=== PATIENT | male | born 1955 | race African-American/Black ===

== ENCOUNTER 2019-01-25 16:23 | Emergency (ER) | payer SELFPAY ==
[2019-01-25 18:32] LABS: #Basophils 0.1 thou/uL (0.0-0.2); #Eosinphils 0.3 thou/uL (0.0-0.7); #Monocytes 0.3 thou/uL (0.11-0.59); #Neutrophils 2.9 thou/uL (1.40-6.50); %Eosinophils 4.8 % (0.0-10.0); %Lymphocytes 36.2 % (21.0-51.0); %Monocytes 4.8 % (0.0-10.0); %Neutrophils 53.1 % (42.0-75.0); Hemoglobin 12.9 g/dL (14.0-18.0); Mean Corpuscular HGB CONC 33.2 g/dL (32.0-36.0); Mean Corpuscular Hemoglobin 30.4 pg (27.0-31.0); Mean Corpuscular Volume 91.4 fL (78.0-98.0); Mean Platelet Volume 6.9 fL (7.4-10.4); Platelet Count 215 thou/uL (130-400); RBC Distribution Width 11.3 % (11.5-14.5); Red Blood Cell (RBC) Count 4.23 mill/uL (4.70-6.10); White Blood Cell (WBC) Count 5.5 thou/uL (4.8-10.8)
[2019-01-25 18:38] LABS: Bilirubin Negative (Negative); Blood, Urine Small (Negative); Clarity CLOUDY (Clear); Glucose, Urine (Dipstick) Negative (Negative); Leukocyte Large (Negative); Nitrite Negative (Negative); Protein, Urine (Dipstick) Negative (Neg-Trace); Specific Gravity, Urine 1.003 (1.002-1.036); Urobilinogen 0.2 mg/dL (0.2-1.0); pH, Urine 6.5 (5.0-9.0)
[2019-01-25 18:41] LABS: Bacteria/HPF Rare-Few HPF (None Seen); Hyaline Casts/LPF 4-6 HYALINE CAST LPF (0-3 Hyaline); Pathc Cast-AUWi Flag 1.08 (0-2.49); RBC/HPF 0-3 HPF (0-3); Squamous Epithelial None Seen HPF (0-3)
--- NOTE | 2019-01-25 19:13 | ULT ---
RIGHT LOWER EXTREMITY VENOUS ULTRASOUND WITH DOPPLER: 01/25/19 HISTORY: Right lower extremity swelling/edema. COMPARISON: None. TECHNIQUE: Manning scale, color flow, doppler imaging with spectral waveform analysis performed in a right lower ex tremity venous system. FINDINGS: There is soft tissue edema at the level of the calf. There are enlarged right inguinal lymph nodes. There is compressibility, presence of flow and augment ation in the common femoral vein, femoral vein, and popliteal vein. There is flow in the greater saph enous vein, profunda vein and posterior tibial vein. IMPRESSION: 1. No evidence of thrombus in the right lower extremity deep venous system. 2. Soft tissue edema. 3. Enlarged right inguinal lymph node. POS: [facility]
[2019-01-25 19:15] LABS: ALT (SGPT) 22 U/L (8-55); AST (SGOT) 33 U/L (5-34); Albumin 4.4 g/dL (3.4-4.8); Alkaline Phosphatase 81 U/L (40-150); Anion Gap 16 mmol/L (10-20); BUN (Urea Nitrogen) 16 mg/dL (8.4-25.7); Calc. Creatinine Clearance 0 mL/min (70-130); Calcium 9.2 mg/dL (7.8-10.44); Carbon Dioxide 24 mmol/L (23-31); Chloride 105 mmol/L (98-107); Estimated GFR-MDRD 54; Globulin 3.7 g/dL (2.4-3.5); Glucose 100 mg/dL (80-115); Potassium 3.2 mmol/L (3.5-5.1); Protein, Total 8.1 g/dL (5.8-8.1); Sodium 142 mmol/L (136-145)
[2019-01-25] MEDS ORDERED: Cephalexin 250 MG CAP ONE (20:25)
== END 2019-01-25 20:35 | disposition home or self-care (01) ==
LOC: ERS 16:23
DX: L03.115 Cellulitis of right lower limb (principal); N39.0 Urinary tract infection, site not specified
CPT/HCPCS: 80053; 81003; 81015; 83880; 84484; 85025; 93005

== ENCOUNTER 2019-02-09 05:37 | Emergency (ER) | payer SELFPAY ==
[2019-02-09 05:55] LABS: Bilirubin Negative (Negative); Blood, Urine Large (Negative); Clarity CLOUDY (Clear); Glucose, Urine (Dipstick) Negative (Negative); Leukocyte Large (Negative); Nitrite Positive (Negative); Protein, Urine (Dipstick) 100 mg/dL (Neg-Trace); Specific Gravity, Urine 1.006 (1.002-1.036); Urobilinogen 0.2 mg/dL (0.2-1.0)
[2019-02-09 05:58] LABS: Bacteria/HPF Rare-Few HPF (None Seen); Hyaline Casts/LPF 4-6 HYALINE CAST LPF (0-3 Hyaline); Pathc Cast-AUWi Flag 1.36 (0-2.49); Squamous Epithelial None Seen HPF (0-3); Yeast-AUWi Flag 21.2 (0-25.0)
[2019-02-09 06:39] LABS: #Basophils 0.1 thou/uL (0.0-0.2); #Lymphocytes 1.2 thou/uL (1.20-3.40); #Monocytes 0.4 thou/uL (0.11-0.59); #Neutrophils 2.6 thou/uL (1.40-6.50); %Basophils 2.1 % (0.0-1.0); %Eosinophils 0.6 % (0.0-10.0); %Lymphocytes 27.9 % (21.0-51.0); %Monocytes 9.5 % (0.0-10.0); %Neutrophils 59.9 % (42.0-75.0); Hemoglobin 11.4 g/dL (14.0-18.0); Mean Corpuscular HGB CONC 32.8 g/dL (32.0-36.0); Mean Corpuscular Hemoglobin 30.7 pg (27.0-31.0); Mean Corpuscular Volume 93.6 fL (78.0-98.0); Mean Platelet Volume 7.1 fL (7.4-10.4); Platelet Count 173 thou/uL (130-400); RBC Distribution Width 11.3 % (11.5-14.5); Red Blood Cell (RBC) Count 3.72 mill/uL (4.70-6.10); White Blood Cell (WBC) Count 4.4 thou/uL (4.8-10.8)
[2019-02-09] MEDS ORDERED: Ketorolac Tromethamine 60 MG/2 ML VIAL ONE (07:01)
[2019-02-09] MEDS ORDERED: Ciprofloxacin 500 MG TAB ONE (07:01)
[2019-02-09 07:02] LABS: ALT (SGPT) 20 U/L (8-55); AST (SGOT) 31 U/L (5-34); Albumin 4.1 g/dL (3.4-4.8); Alkaline Phosphatase 69 U/L (40-150); Anion Gap 13 mmol/L (10-20); BUN (Urea Nitrogen) 25 mg/dL (8.4-25.7); Bilirubin, Total 0.9 mg/dL (0.2-1.2); Calc. Creatinine Clearance 0 mL/min (70-130); Calcium 8.9 mg/dL (7.8-10.44); Carbon Dioxide 24 mmol/L (23-31); Chloride 101 mmol/L (98-107); Estimated GFR-MDRD 37; Globulin 3.7 g/dL (2.4-3.5); Glucose 90 mg/dL (80-115); Potassium 3.7 mmol/L (3.5-5.1); Protein, Total 7.8 g/dL (5.8-8.1); Sodium 134 mmol/L (136-145)
== END 2019-02-09 07:26 | disposition home or self-care (01) ==
LOC: ERS 05:37
DX: N30.00 Acute cystitis without hematuria (principal)
CPT/HCPCS: 36415; 80053; 81003; 81015; 85025; 96372; J1885

== ENCOUNTER 2020-02-05 13:21 | Inpatient (IN) | payer SELFPAY ==
[2020-02-05 13:49] LABS: #Eosinphils 0.1 thou/uL (0.0-0.7); #Lymphocytes 1.3 thou/uL (1.20-3.40); #Monocytes 0.3 thou/uL (0.11-0.59); #Neutrophils 4.8 thou/uL (1.40-6.50); %Basophils 0.7 % (0.0-1.0); %Eosinophils 1.6 % (0.0-10.0); %Monocytes 4.2 % (0.0-10.0); %Neutrophils 73.5 % (42.0-75.0); Hemoglobin 10.2 g/dL (14.0-18.0); Mean Corpuscular HGB CONC 34.3 g/dL (32.0-36.0); Mean Corpuscular Hemoglobin 30.7 pg (27.0-31.0); Mean Corpuscular Volume 89.5 fL (78.0-98.0); Mean Platelet Volume 6.8 fL (7.4-10.4); Platelet Count 187 thou/uL (130-400); RBC Distribution Width 12.1 % (11.5-14.5); Red Blood Cell (RBC) Count 3.34 mill/uL (4.70-6.10); White Blood Cell (WBC) Count 6.5 thou/uL (4.8-10.8)
[2020-02-05 14:16] LABS: ALT (SGPT) 8 U/L (8-55); AST (SGOT) 14 U/L (5-34); Albumin 4.2 g/dL (3.4-4.8); Alkaline Phosphatase 91 U/L (40-110); Anion Gap 15 mmol/L (10-20); BUN (Urea Nitrogen) 63 mg/dL (8.4-25.7); Bilirubin, Total 0.4 mg/dL (0.2-1.2); CK (CPK) 148 U/L (30-200); Calc. Creatinine Clearance 0 mL/min (70-130); Calcium 9.2 mg/dL (7.8-10.44); Carbon Dioxide 18 mmol/L (23-31); Chloride 105 mmol/L (98-107); Estimated GFR-MDRD 10; Glucose 106 mg/dL (80-115); Potassium 4.7 mmol/L (3.5-5.1); Protein, Total 8.2 g/dL (5.8-8.1); Sodium 133 mmol/L (136-145)
--- NOTE | 2020-02-05 14:34 | PDOC.FPRHP ---
- History of Present Illness Chief Complaint: Lightheadedness History of Present Illness: 64yo M presented to the ED complaining of lightheadness. 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 Pt states this resolved with some rest. Over the weekend he did not work but when back to work today. This morning around 8am while exerting himself he developed lightheadedness again while working prompting him to seek further evaluation. Initial ED workup showed a Cr of 6.83. Pt states that he has been urinating clear urine and has been urinating slightly more than usual. He denies any dysuria, incontinence, difficulty urinating, abdominal pain, fever /chills, N/V/D. Notes he has hx of UTI's and was previously seen by a urologist as an inpatient but never followed up with him as an outpt. Review of pt's chart showed hx of ureteral calculi and possible hemorrhage and mass within the bladder in 2012. - Allergies/Adverse Reactions Allergies Allergy/AdvReac Type Severity Reaction Status Date / Time No Known Allergies Allergy Verified 01/25/20 23:13 - Home Medications Medication Instructions Recorded Confirmed Type Terazosin HCl 1 mg PO DAILY 02/05/20 02/05/20 History - History PMHx: HTN, UTI PSHx: Right wrist FHx: CVA's - brother and 2 families Social: Occasional alcohol use, denies tobacco, denies drug use - Review of Systems General: denies: fever/chills, weight/appetite/sleep changes Eyes: denies: vision changes, other ENT: denies: nasal congestion, rhinorrhea Respiratory: denies: cough, shortness of breath Cardiovascular: denies: chest pain, edema Gastrointestinal: denies: nausea, vomiting, diarrhea, constipation, abdominal pain Genitourinary: reports: polyuria. denies: incontinence, dysuria, discharge Skin: denies: rashes, lesions Musculoskeletal: denies: tenderness, arthritis/arthralgias Neurological: reports: other (lightheadedness). denies: syncope, weakness - Vital signs BP: 146/85, Pulse: 86, Resp: 19, Temp: 97.6 (Oral), O2 sat: 97 on (Room Air) - Physical Exam Constitutional: NAD, awake, alert and oriented, well developed HEENT: PERRLA, EOMI -HEENT: Mildly pale conjunctiva Neck: supple, FROM Heart: RRR, normal S1/S2 Lungs: CTAB, no respiratory distress Abdomen: soft, non-tender -Abdomen: Mild distention, midline ventral abdominal wall hernia (chronic, no contents/ entrapment) Musculoskeletal: normal structure, normal tone Neurological: no focal deficit, CN II-XII intact Skin: no rash/lesions, capillary refill <2 seconds Heme/Lymphatic: no purpura, no petechia Psychiatric: normal mood and affect, good judgment and insight, intact recent and remote memory FMR H&P: Results - Labs Result Diagrams: 02/05/20 13:41 02/05/20 13:41 Lab results: WBC 6.5 thou/uL (4.8-10.8) 02/05/20 13:41 Hgb 10.2 g/dL (14.0-18.0) L 02/05/20 13:41 Hct 29.9 % (42.0-52.0) L 02/05/20 13:41 MCV 89.5 fL (78.0-98.0) 02/05/20 13:41 Plt Count 187 thou/uL (130-400) 02/05/20 13:41 Neutrophils % 73.5 % (42.0-75.0) 02/05/20 13:41 Sodium 133 mmol/L (136-145) L 02/05/20 13:41 Potassium 4.7 mmol/L (3.5-5.1) 02/05/20 13:41 Chloride 105 mmol/L (98-107) 02/05/20 13:41 Carbon Dioxide 18 mmol/L (23-31) L 02/05/20 13:41 BUN 63 mg/dL (8.4-25.7) H 02/05/20 13:41 Creatinine 6.83 mg/dL (0.7-1.3) H 02/05/20 13:41 Glucose 106 mg/dL (80-115) 02/05/20 13:41 Calcium 9.2 mg/dL (7.8-10.44) 02/05/20 13:41 Total Bilirubin 0.4 mg/dL (0.2-1.2) 02/05/20 13:41 AST 14 U/L (5-34) 02/05/20 13:41 ALT 8 U/L (8-55) 02/05/20 13:41 Alkaline Phosphatase 91 U/L (40-110) 02/05/20 13:41 Creatine Kinase 148 U/L (30-200) 02/05/20 13:41 Serum Total Protein 8.2 g/dL (5.8-8.1) H 02/05/20 13:41 Albumin 4.2 g/dL (3.4-4.8) 02/05/20 13:41 - EKG Interpretation EK bpm, with no ectopics, Conduction normal, ST, non-specific ST changes, T waves, non-specific T wave changes, [place] normal, Clinical impression:, non- specific EKG - Radiology Interpretation Chest x-ray Status: report reviewed by me (No evidence of acute cardiopulmonary disease.) FMR H&P: A/P - Problem List (1) Acute renal failure Current Visit: Yes Status: Acute Qualifiers: Acute renal failure type: unspecified Qualified Code(s): N17.9 - Acute kidney failure, unspecified (2) Hypertension Current Visit: Yes Status: Acute Code(s): I10 - ESSENTIAL (PRIMARY) HYPERTENSION Qualifiers: Hypertension type: essential hypertension Qualified Code(s): I10 - Essential (primary) hypertension (3) Hyponatremia Current Visit: Yes Status: Acute Code(s): E87.1 - HYPO-OSMOLALITY AND HYPONATREMIA (4) Anemia Current Visit: Yes Status: Acute Code(s): D64.9 - ANEMIA, UNSPECIFIED Qualifiers: Anemia type: unspecified type Qualified Code(s): D64.9 - Anemia, unspecified (5) Elevated troponin Current Visit: Yes Status: Acute Code(s): R79.89 - OTHER SPECIFIED ABNORMAL FINDINGS OF BLOOD CHEMISTRY - Plan 64 yo M presented to the ED with lightheadedness and found to have acute renal failure. Acute Renal Failure - Previous baseline Cr fluctuates in past, highest was 2.4 but returned to <1 - IVF: LR @ 125 - Consulted nephrology Dr. Larios - Renal US ordered - UDS ordered - Normal potassium Anemia - TIBC, Ferritin, Iron studies ordered Hyponatremia - Likely related to renal insufficiency - Urine studies ordered, serum osmo Elevated Troponin - 0.061 - Likely related to renal insufficiency - Trend Hypertension - Previously on terazosin - Will transition to amlodipine Diet: Renal IVF: LR @ 125 Code status: Full Dispo: Admit to medical floor for evaluation and treatment of acute renal failure. PCP: [facility] FMR H&P: Upper Level - Plan Date/Time: 02/05/20 5434 I, Job Adams MD, have evaluated this patient and agree with findings/ plan as outlined by international manager resident. Pertinent changes/additions are listed here. 1. ARF - Previous baseline near February 2019 Cr 2.19 - Will order urine studies - Will order stat Renal US due to previous imaging and possible mass - Will consult Nephrology - Initiate IVF until Nephrology recs are known 2. Anemia - Likely secondary to CKD - Iron studies pending 3. Elevated troponin - Likely secondary to #1 - Will consider cardiac workup if symptoms persist 4. HTN - Will initiate appropriate medication management - Trend BP CODE STATUS: FULL CODE PCP: CC - [facility] Disposition: Stable, will admit to inpatient medical for further evaluation and management. Addendum - Attending - Attending Attestation Date/Time: 02/05/20 9992 I personally evaluated the patient and discussed the management with Dr. Bradley/ Bryan. I agree with the History, Examination, Assessment and Plan documented above with any addition or exceptions noted below. Patient is a 64-year-old male with history of hypertension who is presenting due to lightheadedness. Upon patients chart review, it appears he had an abnormal CT scan in 2012 showing some bladder irregularities. He was recommended to follow up with urology at that time but did not do so. Laboratory evaluation at the time of ER visit shows creatinine of greater than six, the rest of his laboratory studies are overall normal. due to the patient s history, I would have concerns about obstructive uropathy. Stat renal ultrasound has been ordered, and have low threshold for consultation of urology and obtaining CT of the abdomen and pelvis to further evaluate the progress of these bladder irregularities. Patient likely needs Gomez catheter placement but at the current time he does report that he seems to be urinating plenty. Will also obtain urine studies to further differentiate his bladder issues and renal issues.
[2020-02-05 14:38] LABS: CKMB 4.8 ng/mL (0-6.6)
--- NOTE | 2020-02-05 15:19 | RAD ---
SINGLE VIEW OF THE CHEST: COMPARISON: 06/04/2011. HISTORY: Dizziness and dyspnea. FINDINGS: Single view of the chest shows a normal sized cardiomediastinal silhouette. There is no evidence of c onsolidation, mass, or pleural effusion. The bones are unremarkable. IMPRESSION: No evidence of acute cardiopulmonary disease. POS: [facility]
[2020-02-05] MEDS ORDERED: Lactated Ringer's 1,000 ML IV SCH (17:02)
[2020-02-05] MEDS ORDERED: Amlodipine 5 MG TAB PO SCH (17:02)
[2020-02-05 17:08] VITALS: BMI 29.0
[2020-02-05 17:28] LABS: Troponin I 0.086 ng/mL (< 0.028)
--- NOTE | 2020-02-05 18:46 | ULT ---
ULTRASOUND RETROPERITONEUM COMPLETE: (RENAL) DATE: 02/05/2020 HISTORY: Dr. Burgess reported the findings by telephone to nurse Zuly Mccoy at 6:39 PM 02/05/2020. She was inst ructed to notify the attending or resident physician. FINDINGS: There is very severe dilation of the bilateral renal collecting systems and renal pelves. The bilateral renal parenchyma is diffusely very thin, suggesting that this severe hydronephrosis is probably chronic and long-standing. Right kidney measures approximately 14.5 x 6.5 x 6.5 cm. Left kidney measures approximately 12.5 x 7.5 x 7 cm. The patient voided just prior to the ultrasound. Despite that, the urinary bladder is distended, with estimated volume of approximately 2000 mL IMPRESSION: 1) severe bilateral hydronephrosis. 2.) Diffuse renal parenchymal cortical thinning, suggesting that the hydronephrosis is chronic and lo ng-standing. 3) severe urinary bladder distention, with post void bladder volume of 2000 mL, very poor micturition .
[2020-02-05 18:52] LABS: Iron 24 ug/dL (65-175); Iron Binding Capacity, Total 291 mcg/dL (261-462)
[2020-02-05 19:03] LABS: Bacteria/HPF 2+ HPF (None Seen); Bilirubin Negative (Negative); Blood, Urine 2+ (Negative); Clarity Turbid (Clear); Glucose, Urine (Dipstick) Normal (Negative); Leukocyte 500 Leu/uL (Negative); Nitrite Negative (Negative); Protein, Urine (Dipstick) 50 mg/dL (Neg-Trace); Squamous Epithelial 0-3 HPF (0-3); Urobilinogen Normal mg/dL (Less than 2); WBC/HPF Greater than 50 HPF (0-3)
--- NOTE | 2020-02-05 19:55 | CON ---
DATE OF CONSULTATION: HISTORY OF PRESENT ILLNESS: Mr. Crawford is a 64-year-old black male, who was admitted for an acute kidney injury. He initially presented with lightheadedness. Review of systems also showed some urinary hesitancy and dysuria as well as urinary incontinence. Also evaluated for abdominal discomfort. During the initial workup, he was noted to be in acute kidney injury. He does have a history of chronic renal failure in the past. He has also been seen by a previous urologist, Dr. Franz, at that time was noted to have had urinary obstruction. Repeat renal ultrasound showed bilateral hydronephrosis and renal cortical thinning. The feeling is that he also had a very distended bladder with about 2 L of urine after a postvoid bladder volume. We are now following up this patient for his acute kidney injury secondary to bilateral hydronephrosis. Urology has been consulted. MEDICATIONS: Include the followin. Amlodipine 5 mg daily. 2. Heparin 5000 units subcu t.i.d. 3. Lactated Ringer's 125 mL/hour. PAST MEDICAL HISTORY: 1. Chronic renal failure secondary to presumed chronic obstructive uropathy. 2. Longstanding hypertension. PAST SURGICAL HISTORY: Status post right hand surgery secondary to trauma. SOCIAL HISTORY: Occasional alcohol. Denies any tobacco use. He is , one child. Lives in [place]. 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 Education, 10th grade. No IV drug abuse. Denies any blood transfusion. ALLERGIES: NO KNOWN DRUG ALLERGIES. TRAUMA: Status post right wrist/hand injury. IMMUNIZATIONS: Unknown. HOSPITALIZATIONS: Please see past medical history. FAMILY HISTORY: Positive family history of CVA. PHYSICAL EXAMINATION: VITAL SIGNS: Blood pressure is 161/93, heart rate 104, respiratory rate 20, temperature 97.9, pulse ox 96%. GENERAL: Noted to be awake, alert, comfortable, not in distress. SKIN: Adequate turgor. HEENT: He has pinkish conjunctivae. Anicteric sclerae. No neck mass. No carotid bruits. No JVD. CHEST: No deformities. LUNGS: Clear breath sounds. No wheezing. No crackles. HEART: Normal sinus rhythm. No murmurs. No gallops. No rubs. ABDOMEN: Globular, soft, and nontender. No masses. EXTREMITIES: No edema. No deformities. NEUROLOGIC: Awake and oriented to 3 spheres. Moving all extremities. No tremors. No asterixis. No ataxia. LABORATORY DATA: Laboratories of February 05, 2020: White count 6.5, hemoglobin 10.2. Sodium 133, potassium 4.7, chloride 105, carbon dioxide 18, BUN 63, creatinine 6.83, GFR 10 mL/minute, calcium 9.2, albumin 4.2. Serum osmolality is 307. Troponin I 0.086. BNP 44.3. Further review of his serum creatinine shows the following, February 09, 2019, creatinine was 2.19. Renal ultrasound of February 05, 2020, showed bilateral hydronephrosis. Also diffuse renal parenchymal cortical thinning and also findings of severe urinary bladder distention with a postvoid bladder volume of 2 L. Urinalysis of February 05, 2020, specific gravity 1.008, positive for protein. The patient also positive for red cells as well as wbc. There is no finding of any pigmented granular casts. ASSESSMENT AND PLAN: 1. Acute kidney injury on top of his chronic renal failure - I feel that the patient has a superimposed obstructive uropathy as suggested by the bilateral hydronephrosis. Agree to place a Gomez catheter with this patient since feeling this may be a low bladder outlet obstruction. 2. Chronic renal failure, most likely from chronic obstructive uropathy as suggested by cortical thinning. Management is essentially supportive. I do not find any reason for any emergent hemodialysis with this patient. Overall, agree with current management. Job ID: [id number]
[2020-02-05] MEDS: Heparin 5,000 UNITS/ML VIAL SC SCH (20:01)
[2020-02-05] MEDS: Acetaminophen 325 MG TAB PO PRN (20:26)
[2020-02-05 21:02] LABS: Troponin I 0.081 ng/mL (< 0.028)
[2020-02-06 01:57] LABS: Amphetamine Not Detected (NotDetected); Barbiturates Screen Not Detected (NotDetected); Benzodiazepine Screen Not Detected (NotDetected); Cocaine Metabolite Screen Not Detected (NotDetected); Medtox Control Line Valid? VALID (VALID); Medtox Reader # READER 4; Methadone Not Detected (NotDetected); Methamphetamine Not Detected (NotDetected); Opiate Screen Not Detected (NotDetected); Oxycodone Screen Not Detected (NotDetected); Phencyclidine (PCP) Not Detected (NotDetected); THC/Cannabinoid Screen Not Detected (NotDetected); Tricyclic Screen Not Detected (NotDetected)
[2020-02-06 02:09] LABS: Protein, Urine Random Quant 150 mg/dL (1-14); Sodium, Urine 93 mmol/L (Not Available)
[2020-02-06 05:20] LABS: #Basophils 0.1 thou/uL (0.0-0.2); #Eosinphils 0.3 thou/uL (0.0-0.7); #Lymphocytes 1.9 thou/uL (1.20-3.40); #Monocytes 0.4 thou/uL (0.11-0.59); #Neutrophils 3.8 thou/uL (1.40-6.50); %Basophils 0.9 % (0.0-1.0); %Eosinophils 4.3 % (0.0-10.0); %Lymphocytes 29.1 % (21.0-51.0); %Monocytes 6.4 % (0.0-10.0); %Neutrophils 59.4 % (42.0-75.0); Hemoglobin 11.5 g/dL (14.0-18.0); Mean Corpuscular Hemoglobin 30.3 pg (27.0-31.0); Mean Corpuscular Volume 88.9 fL (78.0-98.0); Platelet Count 200 thou/uL (130-400); RBC Distribution Width 12.1 % (11.5-14.5); Red Blood Cell (RBC) Count 3.82 mill/uL (4.70-6.10); White Blood Cell (WBC) Count 6.4 thou/uL (4.8-10.8)
[2020-02-06 05:45] LABS: Anion Gap 16 mmol/L (10-20); BUN (Urea Nitrogen) 58 mg/dL (8.4-25.7); Calc. Creatinine Clearance 17 mL/min (70-130); Calcium 9.3 mg/dL (7.8-10.44); Carbon Dioxide 18 mmol/L (23-31); Chloride 106 mmol/L (98-107); Estimated GFR-MDRD 11; Glucose 102 mg/dL (80-115); Potassium 5.3 mmol/L (3.5-5.1); Sodium 135 mmol/L (136-145)
--- NOTE | 2020-02-06 06:53 | PDOC.FM ---
- Subjective Subjective: Pt states he started feeling much better after mason was placed last night. Denies any memory of what they told him was wrong with his bladder in the past. Continues to deny any difficulty with urinating prior to arrival including dysuria, weak stream, incontinence. - Objective Vital Signs & Weight: Vital Signs (12 hours) Temp Pulse Resp BP Pulse Ox 02/06/20 04:13 98.1 F 76 18 142/86 H 97 02/06/20 00:00 98.0 F 80 18 148/84 H 02/05/20 20:00 97.9 F 91 18 172/97 H 96 02/05/20 19:50 91 L Weight Weight 99.79 kg I&O: 02/04/20 02/05/20 02/06/20 06:59 06:59 06:59 Intake Total 950 Output Total 5350 Balance -4400 Result Diagrams: 02/06/20 05:12 02/06/20 05:12 Phys Exam - Physical Examination Constitutional: NAD HEENT: moist MMs Neck: full ROM Respiratory: clear to auscultation bilateral Cardiovascular: RRR Gastrointestinal: soft, non-tender, no distention, positive bowel sounds Prostate is high riding, inferior pole is dense but not enlarged Musculoskeletal: no edema Neurological: non-focal, moves all 4 limbs Psychiatric: normal affect, A&O x 3 Skin: no rash Dx/Plan (1) Acute renal failure Status: Acute Qualifiers: Acute renal failure type: unspecified Qualified Code(s): N17.9 - Acute kidney failure, unspecified (2) Hypertension Code(s): I10 - ESSENTIAL (PRIMARY) HYPERTENSION Status: Acute Qualifiers: Hypertension type: essential hypertension Qualified Code(s): I10 - Essential (primary) hypertension (3) Hyponatremia Code(s): E87.1 - HYPO-OSMOLALITY AND HYPONATREMIA Status: Acute (4) Anemia Code(s): D64.9 - ANEMIA, UNSPECIFIED Status: Acute Qualifiers: Anemia type: unspecified type Qualified Code(s): D64.9 - Anemia, unspecified (5) Elevated troponin Code(s): R79.89 - OTHER SPECIFIED ABNORMAL FINDINGS OF BLOOD CHEMISTRY Status : Acute - Plan Plan: 64 yo M presented to the ED with lightheadedness and found to have acute renal failure. Acute Renal Failure 2/2 Likely obstructive uropathy - Cr 6.08 - Consulted nephrology Dr. Larios - Renal US - showed severe likely chronic hydronephrosis - Mason placed last night w/ 3500ml return - Will consult urology this morning, await recs for imaging - Slightly elevated potassium at 5.3 Bacturia - Insetting of obstructive uropathy with start abx - Rocephin 1g daily Anemia - Iron studies consistent w/ ACD - Will start iron supplementation Hyponatremia - Likely related to renal insufficiency Elevated Troponin - stable trend, likely 2/2 ARF Hypertension - Previously on terazosin - Will transition to amlodipine Diet: Renal IVF: SL Code status: Full Dispo: Admit to medical floor for evaluation and treatment of acute renal failure. Addendum - Attending - Attending Attestation Date/Time: 02/06/20 1110 I personally evaluated the patient and discussed the management with Dr. Bradley. I agree with the History, Examination, Assessment and Plan documented above with any addition or exceptions noted below.
[2020-02-06] MEDS ORDERED: Ondansetron PF 4 MG/2 ML Vial IVP PRN (07:36)
[2020-02-06] MEDS: cefTRIAXone\\ROCEPHIN 1 GM in Sodium Chloride 0.9% 100 ML IVPB SCH (08:32)
[2020-02-06] MEDS: Heparin 5,000 UNITS/ML VIAL SC SCH ×3 (08:33→21:16)
[2020-02-06] MEDS: Amlodipine 5 MG TAB PO SCH (08:33)
[2020-02-06] MEDS ORDERED: Tamsulosin HCl 0.4 MG CAP PO SCH (09:45)
--- NOTE | 2020-02-06 11:01 | PRG ---
DATE OF SERVICE: 02/06/2020 SERVICE: Renal Medicine. SUBJECTIVE: Mr. Crawford is a 64-year-old black male, who was admitted for an acute kidney injury. He was found to have a bilateral obstructive hydronephrosis. He most likely has a low bladder outlet obstruction. Gomez catheter has been inserted. Please note, during the renal ultrasound, it was noted he had 2 L of urine in the bladder. Creatinine is slightly improved today. The patient most likely has also underlying chronic renal failure from chronic obstructive uropathy as suggested by the renal ultrasound. No other complaints today except for some mild abdominal pain. OBJECTIVE: VITAL SIGNS: Blood pressure 137/83, heart rate 68, respiratory rate 16, temperature 97.9, pulse ox 97%. GENERAL: The patient is awake, alert, comfortable, not in overt distress. SKIN: Adequate turgor. HEENT: He has a slightly pale conjunctivae. Anicteric sclerae. NECK: No neck mass. No carotid bruits. No JVD. CHEST: No deformities. LUNGS: Clear breath sounds. No wheezing. No crackles. HEART: Normal sinus rhythm. No murmurs, gallops, or rubs. ABDOMEN: Globular, soft, nontender. No masses. EXTREMITIES: No edema. No deformities. MEDICATIONS: Medications of February 06, 2020, reviewed. LABORATORY DATA: Laboratories of February 06, 2020; sodium 135, potassium 5.3, chloride 106, carbon dioxide 18, BUN 58, creatinine 6.08, glucose 102, and calcium 9.3. Troponin I 0.081. White count 6.4, hemoglobin 11.5. ASSESSMENT AND PLAN: 1. Acute kidney injury/chronic renal failure. The patient has probable underlying low bladder outlet obstruction. He did show bilateral hydronephrosis. Gomez catheter has been inserted and he is diuresing. Please note, a urology consultation has been done. 2. There is no indication for any dialytic intervention. 3. Hypertension. Continue current BP medications. Recheck CBC and basic met in a.m. Job ID: [id number]
[2020-02-06] MEDS ORDERED: Morphine 2 MG/ML SYRINGE SLOW IVP SCH (11:30)
[2020-02-06] MEDS: Ferrous Sulfate 325 MG TAB PO SCH (16:38)
[2020-02-06] MEDS ORDERED: hydrALAZINE 20 MG/ML VIAL SLOW IVP PRN (23:18)
[2020-02-06] MEDS: Acetaminophen 325 MG TAB PO PRN (23:59)
[2020-02-07 05:20] LABS: #Basophils 0.1 thou/uL (0.0-0.2); #Eosinphils 0.2 thou/uL (0.0-0.7); #Lymphocytes 2.6 thou/uL (1.20-3.40); #Monocytes 0.5 thou/uL (0.11-0.59); #Neutrophils 3.6 thou/uL (1.40-6.50); %Eosinophils 3.3 % (0.0-10.0); %Lymphocytes 36.8 % (21.0-51.0); %Monocytes 7.7 % (0.0-10.0); %Neutrophils 51.2 % (42.0-75.0); Hemoglobin 12.4 g/dL (14.0-18.0); Mean Corpuscular HGB CONC 33.3 g/dL (32.0-36.0); Mean Corpuscular Hemoglobin 29.8 pg (27.0-31.0); Mean Corpuscular Volume 89.6 fL (78.0-98.0); Mean Platelet Volume 7.6 fL (7.4-10.4); Platelet Count 219 thou/uL (130-400); RBC Distribution Width 12.1 % (11.5-14.5); Red Blood Cell (RBC) Count 4.15 mill/uL (4.70-6.10)
[2020-02-07 05:38] LABS: Anion Gap 16 mmol/L (10-20); BUN (Urea Nitrogen) 51 mg/dL (8.4-25.7); Calc. Creatinine Clearance 20 mL/min (70-130); Calcium 9.4 mg/dL (7.8-10.44); Carbon Dioxide 19 mmol/L (23-31); Chloride 104 mmol/L (98-107); Estimated GFR-MDRD 13; Glucose 95 mg/dL (80-115); Potassium 5.1 mmol/L (3.5-5.1); Sodium 134 mmol/L (136-145)
--- NOTE | 2020-02-07 06:53 | PDOC.FM ---
- Subjective Subjective: Pt states that he is feeling much better. States he has had a couple large bowel movements and since he has had the mason in his abdominal distention has continually improved. Denies any continued lightheadedness. Was seen by uro last night but does not recall specifics from the discussion. - Objective Vital Signs & Weight: Vital Signs (12 hours) Temp Pulse Resp BP Pulse Ox 02/07/20 04:00 97.4 F L 65 16 132/89 99 02/07/20 00:12 98.0 F 66 16 148/75 H 96 02/06/20 22:55 160/100 H 02/06/20 22:40 157/105 H 02/06/20 20:00 97.6 F 73 16 158/100 H 97 Weight Weight 99.79 kg I&O: 02/05/20 02/06/20 02/07/20 06:59 06:59 06:59 Intake Total 950 2000 Output Total 5350 3050 Balance -4400 -1050 Result Diagrams: 02/07/20 04:55 02/07/20 04:55 Phys Exam - Physical Examination Constitutional: NAD HEENT: moist MMs Neck: full ROM Respiratory: clear to auscultation bilateral Cardiovascular: RRR, no significant murmur Gastrointestinal: soft, non-tender, no distention, positive bowel sounds Musculoskeletal: no edema, pulses present Neurological: non-focal, moves all 4 limbs Psychiatric: normal affect, A&O x 3 Skin: no rash Dx/Plan (1) Acute renal failure Status: Acute Qualifiers: Acute renal failure type: unspecified Qualified Code(s): N17.9 - Acute kidney failure, unspecified (2) Hypertension Code(s): I10 - ESSENTIAL (PRIMARY) HYPERTENSION Status: Acute Qualifiers: Hypertension type: essential hypertension Qualified Code(s): I10 - Essential (primary) hypertension (3) Hyponatremia Code(s): E87.1 - HYPO-OSMOLALITY AND HYPONATREMIA Status: Acute (4) Anemia Code(s): D64.9 - ANEMIA, UNSPECIFIED Status: Acute Qualifiers: Anemia type: unspecified type Qualified Code(s): D64.9 - Anemia, unspecified (5) Elevated troponin Code(s): R79.89 - OTHER SPECIFIED ABNORMAL FINDINGS OF BLOOD CHEMISTRY Status : Acute - Plan Plan: 64 yo M presented to the ED with lightheadedness and found to have acute renal failure. Acute Renal Failure 2/2 Likely obstructive uropathy - Cr 5.4 - Nephro, Dr. Larios - no dialysis, continue to monitor - Renal US - showed severe likely chronic hydronephrosis - Post mason has diuresed 8.5L since admission - Urology, Dr. Neely - appreciate recs - Abd pelvis CT today Bacturia - In setting of obstructive uropathy with start abx - Rocephin 1g daily Anemia - Iron studies consistent w/ ACD - Will start iron supplementation Hyponatremia - Likely related to renal insufficiency Elevated Troponin - stable trend, likely 2/2 ARF Hypertension - Previously on terazosin - Will transition to amlodipine, continue titration Diet: Renal IVF: SL Code status: Full Dispo: Inpt Medical. Renal function slowly improving, continue to monitor urine output and Cr. Abd/pelvis CT today to assess for cause of obstruction. Addendum - Attending - Attending Attestation Date/Time: 02/07/20 1040 I personally evaluated the patient and discussed the management with Dr. Bradley. I agree with the History, Examination, Assessment and Plan documented above with any addition or exceptions noted below. Patient here with renal failure 2/2 obstructive uropathy. Appears that he has both prostatic blockage (relieved with Mason) and UPJ obstruction. Awaiting Urology input for the last 2 days now.
[2020-02-07] MEDS: Tamsulosin HCl 0.4 MG CAP PO SCH (08:22)
[2020-02-07] MEDS: cefTRIAXone\\ROCEPHIN 1 GM in Sodium Chloride 0.9% 100 ML IVPB SCH (08:22)
[2020-02-07] MEDS: Amlodipine 5 MG TAB PO SCH (08:22)
[2020-02-07] MEDS: Heparin 5,000 UNITS/ML VIAL SC SCH ×2 (08:22→23:02)
[2020-02-07] MEDS: Ferrous Sulfate 325 MG TAB PO SCH ×2 (08:22→17:24)
--- NOTE | 2020-02-07 08:33 | CT ---
EXAM: CT Abdomen Pelvis WO Con PROVIDED CLINICAL HISTORY: Obstructive uropathy COMPARISON: 06/15/2014 FINDINGS: There is a sub-4 mm nodular density involving the left lower lobe (image 4 series 2). Visualized lung bases appear otherwise clear. There is severe bilateral hydronephrosis and hydroureter. There is marked circumferential bladder wal l thickening, demonstrating an irregular to the mucosal surface. There are several small foci of intramural gas. Gomez catheter is noted within the urinary bladder. There is no evidence for urinary tract calculi. Subcentimeter hypodensities involve the liver, incomp letely characterized in the absence of IV contrast material but statistically reflecting cysts. The solid abdominal organs are suboptimally evaluated in the absence of IV contrast material but demonstr ate an otherwise unremarkable CT appearance. There is no bowel dilatation, inflammatory fat stranding, free fluid or free air apparent. The append ix appears normal. No evidence for regional lymph node enlargement. The osseous structures demonstrate no concerning lytic or blastic lesions. Vascular calcifications ar e seen. IMPRESSION: 1. Marked irregular mural thickening involving the urinary bladder circumferentially, cystitis versus neoplasm. Several small foci of intramural gas are noted, which may reflect ulceration or emphysematous change. 2. Severe bilateral hydronephrosis and hydroureter, presumably UVJ obstruction related to bladder wal l abnormality.
--- NOTE | 2020-02-07 10:14 | PRG ---
DATE OF SERVICE: 02/07/2020 SUBJECTIVE: Mr. Crawford is a 64-year-old black male, seen for his chronic renal failure secondary to chronic obstructive uropathy. He came in with a distended bladder and was found to have bilateral hydronephrosis. Urology has been consulted. In addition, CT scan of the abdomen and pelvis was done this morning, which showed marked irregular mural thickening of the urinary bladder. Severe bladder hydronephrosis and hydroureter were also noted. The patient voices no other complaints. Please note, his renal function is slowly improving with insertion of Gomez catheter. OBJECTIVE: VITAL SIGNS: Blood pressure 161/99, heart rate 73, respiratory rate 16, temperature 97.5, and pulse ox 97%. GENERAL: The patient is noted to be awake, alert, and comfortable, not in distress. SKIN: Adequate turgor. HEENT: Pinkish conjunctivae. Anicteric sclerae. NECK: No neck mass. No carotid bruits. No JVD. CHEST: No deformities. LUNGS: Clear breath sounds. No wheezing. No crackles. HEART: Normal sinus rhythm. No murmurs. No gallops. No rubs. ABDOMEN: Globular, soft, and nontender. No masses. EXTREMITIES: No edema. No deformities. MEDICATIONS: Medications of February 07, 2020 was reviewed. LABORATORY DATA: Laboratories of February 07, 2020, white count 7 and hemoglobin 12.4. Sodium 134, potassium 5.1, chloride 104, carbon dioxide 19, BUN 51, creatinine 5.4, and calcium 9.4. ASSESSMENT AND PLAN: Chronic renal failure secondary to chronic obstructive uropathy. Continue supportive care. No indication for dialysis. Renal function slowly improving. This patient may eventually need to have a comprehensive repeat urological workup. Consider doing Urology consult. Agree with current management. Job ID: [id number]
--- NOTE | 2020-02-07 11:18 | CON ---
DATE OF CONSULTATION: 02/07/2020 HISTORY OF PRESENT ILLNESS: This patient was admitted on the . He was dizzy, lightheaded at work, came in through the ER, had a creatinine of 6.8. His potassium was normal. He was admitted, had a Nephrology consult. Ultrasound was performed, that showed a massively distended bladder, estimated 2 L in it and bilateral hydronephrosis and thinning of the renal cortices. He had a catheter placed and a urinalysis, which I am not sure if the urinalysis was a voided specimen when he came in or catheterized, though I think it was a voided one. It did show over 50 white cells, 2+ bacteria, 7 to 10 red cells, and he actually is on Rocephin. Urine culture so far is no growth at 24 hours. His creatinine which was 6.8 when he was admitted, this morning is 5.4. His urine output; he had about 3.5 L of urine yesterday, and so far today, he has had over 3 L. His urine is slightly bloody, for the most part clear. Vital signs are currently stable; afebrile, pulse is in the 70s, good O2 saturation. On talking with him, he states that he has been urinating just smaller volumes and more frequently. He has had at least 1 episode of incontinence of urine. He has not had any blood in the urine. He has not had burning with urination. There is no family history of prostate cancer. I saw him about 7 years ago when he had some gross hematuria and probably clot in the bladder. He was supposed to come to see me, but never showed up in the office. It looks like he was in the ER again a year later with the left distal ureteral stone and some left hydro. His bladder was not grossly distended at that time. He had only a little bit of left hydro from the stone. No right hydro. His abdomen is currently flat, soft, and nontender. The penis is uncircumcised without lesion. The catheter is draining well. The testicles descended without mass or tenderness. IMPRESSION: Urinary retention with poor emptying resulting in bilateral hydro and renal failure. Hopefully, his bladder being drained, we will correct what is most likely a postrenal cause long-term. I told him he will need to have this catheter in for probably a few weeks to protect his kidneys and then try to set up a study on him in the office to see if his bladder works or not. If the bladder still has any squeeze to it, then a transurethral resection of the prostate could be of some benefit, and we can perhaps resume normal urination. If the bladder does not work, he is going to need to learn in-and-out cath or have to have a suprapubic tube placed. We will have to see what his urine culture shows as it returns, follow his creatinine, and leave his Gomez catheter in. I will order PSA on him. Job ID: [id number]
[2020-02-08 04:08] LABS: % Free PSA 14.5 % (.)
[2020-02-08 06:18] LABS: Anion Gap 15 mmol/L (10-20); BUN (Urea Nitrogen) 53 mg/dL (8.4-25.7); Calc. Creatinine Clearance 21 mL/min (70-130); Calcium 8.9 mg/dL (7.8-10.44); Carbon Dioxide 20 mmol/L (23-31); Chloride 103 mmol/L (98-107); Estimated GFR-MDRD 14; Glucose 94 mg/dL (80-115); Potassium 4.4 mmol/L (3.5-5.1); Sodium 134 mmol/L (136-145)
--- NOTE | 2020-02-08 06:26 | PDOC.FM ---
- Subjective Subjective: No complaints this morning. Mason continues to drain normally. Improved abdominal distention. No events overnight. - Objective Vital Signs & Weight: Vital Signs (12 hours) Temp Pulse Resp BP Pulse Ox 02/08/20 05:43 97.8 F 72 18 147/84 H 99 02/08/20 00:00 98.1 F 85 18 132/88 98 02/07/20 19:55 95 02/07/20 19:31 98.1 F 85 20 134/83 95 Weight Weight 99.79 kg I&O: 02/06/20 02/07/20 02/08/20 06:59 06:59 06:59 Intake Total 950 2000 Output Total 5350 3050 Balance -4400 -1050 Result Diagrams: 02/07/20 04:55 02/08/20 05:40 Phys Exam - Physical Examination Constitutional: NAD HEENT: moist MMs, sclera anicteric Neck: full ROM Respiratory: clear to auscultation bilateral Cardiovascular: RRR, no significant murmur Gastrointestinal: soft, non-tender, no distention, positive bowel sounds Musculoskeletal: no edema, pulses present Neurological: non-focal, moves all 4 limbs Psychiatric: normal affect, A&O x 3 Skin: no rash, cap refill <2 seconds Dx/Plan (1) Acute renal failure Status: Acute Qualifiers: Acute renal failure type: unspecified Qualified Code(s): N17.9 - Acute kidney failure, unspecified (2) Hypertension Code(s): I10 - ESSENTIAL (PRIMARY) HYPERTENSION Status: Acute Qualifiers: Hypertension type: essential hypertension Qualified Code(s): I10 - Essential (primary) hypertension (3) Hyponatremia Code(s): E87.1 - HYPO-OSMOLALITY AND HYPONATREMIA Status: Acute (4) Anemia Code(s): D64.9 - ANEMIA, UNSPECIFIED Status: Acute Qualifiers: Anemia type: unspecified type Qualified Code(s): D64.9 - Anemia, unspecified (5) Elevated troponin Code(s): R79.89 - OTHER SPECIFIED ABNORMAL FINDINGS OF BLOOD CHEMISTRY Status : Acute - Plan Plan: 64 yo M presented to the ED with lightheadedness and found to have acute renal failure. Acute Renal Failure 2/2 Likely obstructive uropathy - Cr 5.08 - NephDr. Ric perez - no dialysis, continue to monitor - CT - circumferential mural bladder thickening with emphysema, severe hydronephrosis - Post mason has diuresed 8.5L since admission - Urology, Dr. Franz saw pt yesterday, outpt cysto and possible prostate resection, will discuss inpt management with him today - Total PSA 10 Bacturia - Rocephin 1g daily - Remains afebrile Anemia - improving - Iron studies consistent w/ ACD - Will start iron supplementation Hyponatremia - improving - Likely related to renal insufficiency Elevated Troponin - stable trend, likely 2/2 ARF Hypertension - Previously on terazosin - Will transition to amlodipine, continue titration - Currently controlled Diet: Renal IVF: SL Code status: Full Dispo: Inpt Medical. Renal function slowly improving, continue to monitor urine output and Cr. Urology workup currently planned for outpt. Addendum - Attending - Attending Attestation Date/Time: 02/08/20 1000 I personally evaluated the patient and discussed the management with Dr. Bradley. I agree with the History, Examination, Assessment and Plan documented above with any addition or exceptions noted below. Patient feels well. Creatinine continues to downtrend, making adequate UOP. He continues to have hydronephrosis due to UPJ obstruction that will not be fixed by Mason Catheter placement. Urology consulted and will discuss with them. Unknown what his baseline renal function is due to the likely chronic and cortical atrophy from longstanding obstruction. Continue Flomax. Nephro on board but no indication for HD at this time.
[2020-02-08] MEDS: cefTRIAXone\\ROCEPHIN 1 GM in Sodium Chloride 0.9% 100 ML IVPB SCH (07:57)
[2020-02-08] MEDS: Tamsulosin HCl 0.4 MG CAP PO SCH (07:58)
[2020-02-08] MEDS: Heparin 5,000 UNITS/ML VIAL SC SCH ×2 (07:58→20:25)
[2020-02-08] MEDS: Ferrous Sulfate 325 MG TAB PO SCH ×2 (07:58→17:53)
[2020-02-08] MEDS: Amlodipine 5 MG TAB PO SCH (07:58)
--- NOTE | 2020-02-08 11:18 | PRG ---
DATE OF SERVICE: 02/08/2020 SUBJECTIVE: Mr. Crawford is a 64-year-old black male, who was seen for his acute kidney injury on top of his chronic renal failure. He was found to have chronic renal failure, most likely from chronic obstructive uropathy. He also had a very distended bladder. For that reason, Gomez catheter was placed. Urology has already evaluated this patient. He may be a candidate for outpatient cystoscopy. Bladder status will also be done by Dr. Franz, his urologist. The patient voices no new complaints today. Renal function is slowly improving. Please note that his initial creatinine on admission was noted at 6.83 and is now currently at 5.08. There are no other complaints today. Please note, total PSA was at 10. No new complaints today. OBJECTIVE: VITAL SIGNS: Blood pressure 131/84, heart rate 65, respiratory rate 16, temperature 97.9, and O2 saturation 100%. GENERAL: Awake, alert, and comfortable, not in distress. SKIN: Adequate turgor. HEENT: He has pinkish conjunctivae. Anicteric sclerae. NECK: No neck mass. No carotid bruits. No JVD. CHEST: No deformities. LUNGS: Clear breath sounds. HEART: Normal sinus rhythm. No murmurs, gallops, or rubs. ABDOMEN: Globular, soft, and nontender. No masses. EXTREMITIES: No edema. No deformities. MEDICATIONS: Medications of February 08, 2020, reviewed. LABORATORY DATA: Laboratories of February 07, 2020; white count 7, hemoglobin 12.4. February 08, 2020; sodium 134, potassium 4.4, chloride 103, carbon dioxide 20, BUN 53, creatinine 5.08, GFR is 14 mL/minute. Calcium 8.9. Total PSA 10. ASSESSMENT AND PLAN: 1. Chronic renal failure - most likely from chronic obstructive uropathy. Continue supportive care. Creatinine noted 5.08. There is no indication for any dialytic intervention. Over time, the patient may eventually require dialysis. For the moment, continue supportive care. Unclear where the baseline creatinine will fall. 2. Bilateral hydronephrosis. Urology is following. Eventual cystoscopy. Eventual bladder status will also be done by Dr. Franz. 3. We will be rechecking a repeat basement CBC, intact PTH, serum phosphorus with this patient. Please note that there is no indication for any emergent dialysis with this patient. Job ID: [id number]
--- NOTE | 2020-02-08 13:22 | PRG ---
DATE OF SERVICE: 02/08/2020 The patient is seen in room 4434. He is afebrile, stable vital signs. Once again has good urine output, over 3 L yesterday, has made over 750 already today. His creatinine has come down to 5.0, so it is slowly going down. His hemoglobin remained stable at 12, actually it is up a little bit, he maybe getting a little hemoconcentrated. Microbiology shows no growth at 48 hours. He received IV antibiotics before this urine culture was taken. He does not have a urinary tract infection. Talking about leaving his catheter in, his urine is now crystal clear. it should stay in at least 2 to 3 weeks. At that point, we will need to work him up in the office to see if he has an areflexic bladder at this point or not. His creatinine I am sure will continue to slowly improve. I will see where he ends up at a baseline. If he goes home without a catheter in, he will most likely continue to have renal deterioration, so he should go home with a Gomez in. When we document what type of bladder he has and if TURP of the prostate is not something that would help him, then we will discuss teaching him in and out cath. Job ID: [id number] MTDD
[2020-02-09 05:46] LABS: #Basophils 0.1 thou/uL (0.0-0.2); #Eosinphils 0.4 thou/uL (0.0-0.7); #Lymphocytes 2.2 thou/uL (1.20-3.40); #Monocytes 0.5 thou/uL (0.11-0.59); #Neutrophils 1.9 thou/uL (1.40-6.50); %Basophils 1.5 % (0.0-1.0); %Eosinophils 7.9 % (0.0-10.0); %Lymphocytes 43.3 % (21.0-51.0); %Monocytes 10.4 % (0.0-10.0); %Neutrophils 36.9 % (42.0-75.0); Hemoglobin 11.8 g/dL (14.0-18.0); Mean Corpuscular HGB CONC 33.2 g/dL (32.0-36.0); Mean Corpuscular Hemoglobin 29.6 pg (27.0-31.0); Mean Corpuscular Volume 89.3 fL (78.0-98.0); Mean Platelet Volume 7.2 fL (7.4-10.4); Platelet Count 206 thou/uL (130-400); Red Blood Cell (RBC) Count 3.99 mill/uL (4.70-6.10); White Blood Cell (WBC) Count 5.2 thou/uL (4.8-10.8)
[2020-02-09 06:06] LABS: Anion Gap 14 mmol/L (10-20); BUN (Urea Nitrogen) 52 mg/dL (8.4-25.7); Calc. Creatinine Clearance 21 mL/min (70-130); Calcium 9.1 mg/dL (7.8-10.44); Carbon Dioxide 23 mmol/L (23-31); Chloride 100 mmol/L (98-107); Estimated GFR-MDRD 14; Glucose 96 mg/dL (80-115); Phosphorus 4.5 mg/dL (2.3-4.7); Potassium 4.2 mmol/L (3.5-5.1); Sodium 133 mmol/L (136-145)
--- NOTE | 2020-02-09 07:29 | PDOC.FM ---
- Subjective Subjective: Denies any complaints this morning. No events overnight. Continues to drain adequate urine. Continues to agree with plan of care. - Objective Vital Signs & Weight: Vital Signs (12 hours) Temp Pulse Resp BP BP Pulse Ox 02/09/20 04:00 97.8 F 65 18 131/85 100 02/08/20 23:54 98 F 75 18 122/80 100 02/08/20 20:00 97.9 F 70 18 125/81 99 Weight Weight 99.79 kg I&O: 02/08/20 02/09/20 02/10/20 06:59 06:59 06:59 Output Total 3150 Balance -3150 Result Diagrams: 02/09/20 05:12 02/09/20 05:12 Phys Exam - Physical Examination Constitutional: NAD HEENT: moist MMs Neck: full ROM No respiratory distress No cyanosis, normal BP Gastrointestinal: no distention Musculoskeletal: no edema Neurological: moves all 4 limbs Psychiatric: normal affect, A&O x 3 Skin: no rash Dx/Plan (1) Acute renal failure Status: Acute Qualifiers: Acute renal failure type: unspecified Qualified Code(s): N17.9 - Acute kidney failure, unspecified (2) Hypertension Code(s): I10 - ESSENTIAL (PRIMARY) HYPERTENSION Status: Acute Qualifiers: Hypertension type: essential hypertension Qualified Code(s): I10 - Essential (primary) hypertension (3) Hyponatremia Code(s): E87.1 - HYPO-OSMOLALITY AND HYPONATREMIA Status: Acute (4) Anemia Code(s): D64.9 - ANEMIA, UNSPECIFIED Status: Acute Qualifiers: Anemia type: unspecified type Qualified Code(s): D64.9 - Anemia, unspecified (5) Elevated troponin Code(s): R79.89 - OTHER SPECIFIED ABNORMAL FINDINGS OF BLOOD CHEMISTRY Status : Acute - Plan Plan: 64 yo M presented to the ED with lightheadedness and found to have acute renal failure. Acute Renal Failure 2/2 Likely obstructive uropathy - Cr 4.92, slow improvement - Will continue to monitor renal function until pt reaches new baseline - Discussed case with Dr. Franz yesterday, once renal function levels out pt is to be dc'd home with mason and f/u with him in 2 weeks - will have bladder function evaluations at that time and be assessed further for cause of obstruction w/ likely cystoscopy Bacturia - culture negative, abx dc'd Anemia - improving - Iron studies consistent w/ ACD - Cont iron supplementation Hyponatremia - improving - Likely related to renal insufficiency Elevated Troponin - stable trend, likely 2/2 ARF Hypertension - Previously on terazosin - Changed to amlodipine, continue titration - Currently controlled Diet: Renal IVF: SL Code status: Full Dispo: Inpt Medical. Renal function continues slow improvement. Plan for DC w/ mason for outpt Uro f/u for further evaluation of obstructive etiology. Addendum - Attending - Attending Attestation Date/Time: 02/09/20 0343 I personally evaluated the patient and discussed the management with Dr. Bradley. I agree with the History, Examination, Assessment and Plan documented above with any addition or exceptions noted below. Patient stable, continue to monitor renal function in setting of CKD due to obstructive uropathy. Urology plans for outpatient workup, nephrology on board.
[2020-02-09] MEDS: Ferrous Sulfate 325 MG TAB PO SCH ×2 (08:25→16:20)
[2020-02-09] MEDS: Tamsulosin HCl 0.4 MG CAP PO SCH (08:25)
[2020-02-09] MEDS: Amlodipine 5 MG TAB PO SCH (08:25)
[2020-02-09] MEDS: Heparin 5,000 UNITS/ML VIAL SC SCH ×2 (08:26→21:26)
--- NOTE | 2020-02-09 10:56 | PRG ---
DATE OF SERVICE: 02/09/2020 SUBJECTIVE: Mr. Crawford is a 64-year-old white male, seen by the Renal Service for his chronic renal failure secondary to chronic obstructive uropathy. Initially, he came in with a very distended bladder. Gomez catheter has been placed. He is doing well. He has been evaluated by Urology. No other complaints today. No chest pain or shortness of breath. OBJECTIVE: VITAL SIGNS: Blood pressure is 122/85, heart rate 71, respiratory rate 18, temperature 97.7, pulse ox 95%. GENERAL: Noted to be awake, alert, comfortable, not in distress. SKIN: Adequate turgor. HEENT: He has pinkish conjunctivae. Anicteric sclerae. NECK: No neck mass. No carotid bruits. No JVD. CHEST: No deformities. LUNGS: Clear breath sounds. HEART: Normal sinus rhythm. No murmur. No gallops. No rubs. ABDOMEN: Globular, soft, and nontender. No masses. EXTREMITIES: No edema. No deformities. MEDICATIONS: Medications of February 09, 2020, were reviewed. LABORATORY DATA: Laboratories of February 09, 2020: Sodium 133, potassium 4.2, chloride 100, carbon dioxide 23, BUN 52, creatinine 4.92, calcium 9.1, phosphorus 4.5. PTH 209.9. Hemoglobin 11.8. ASSESSMENT AND PLAN: 1. Chronic renal failure secondary to chronic obstructive uropathy. Continue supportive care. Urology is following. Gomez catheter has been inserted. No indication for any dialytic intervention. From a renal point of view, this patient can be sent home any time. 2. Secondary hyperparathyroidism. Calcitriol 0.25 mcg tablet daily was started. 3. Chronic obstructive uropathy - considering low bladder outlet obstruction. Urology is following for future cystoscopy. 4. Agree with current management. Job ID: [id number]
[2020-02-09 20:43] VITALS: TEMP 97.8
[2020-02-10 05:29] LABS: Anion Gap 17 mmol/L (10-20); BUN (Urea Nitrogen) 53 mg/dL (8.4-25.7); Calc. Creatinine Clearance 22 mL/min (70-130); Calcium 9.2 mg/dL (7.8-10.44); Carbon Dioxide 17 mmol/L (23-31); Chloride 101 mmol/L (98-107); Estimated GFR-MDRD 15; Glucose 99 mg/dL (80-115); Potassium 4.6 mmol/L (3.5-5.1); Sodium 130 mmol/L (136-145)
--- NOTE | 2020-02-10 07:46 | PDOC.FM ---
- Subjective Subjective: NAEO. Patient remains stable in the floor w/ slow continued improvement in renal function daily. - Objective MAR Reviewed: Yes Vital Signs & Weight: Vital Signs (12 hours) Temp Pulse Resp BP Pulse Ox 02/09/20 20:00 97.8 F 71 18 136/85 99 Weight Weight 99.79 kg I&O: 02/09/20 02/10/20 02/11/20 06:59 06:59 06:59 Output Total 3150 2950 Balance -3150 -2950 Result Diagrams: 02/09/20 05:12 02/10/20 04:52 Phys Exam - Physical Examination Constitutional: NAD HEENT: moist MMs Neck: supple, full ROM Respiratory: no wheezing, no rales, no rhonchi, clear to auscultation bilateral Cardiovascular: RRR, no significant murmur Gastrointestinal: soft, no distention, positive bowel sounds Musculoskeletal: no edema Neurological: non-focal, moves all 4 limbs Psychiatric: normal affect, A&O x 3 Skin: normal turgor Dx/Plan (1) Acute renal failure Status: Acute Qualifiers: Acute renal failure type: unspecified Qualified Code(s): N17.9 - Acute kidney failure, unspecified (2) Anemia Code(s): D64.9 - ANEMIA, UNSPECIFIED Status: Chronic Qualifiers: Anemia type: unspecified type Qualified Code(s): D64.9 - Anemia, unspecified (3) Hypertension Code(s): I10 - ESSENTIAL (PRIMARY) HYPERTENSION Status: Chronic Qualifiers: Hypertension type: essential hypertension Qualified Code(s): I10 - Essential (primary) hypertension (4) Hyponatremia Code(s): E87.1 - HYPO-OSMOLALITY AND HYPONATREMIA Status: Acute (5) Secondary hyperparathyroidism (of renal origin) Code(s): N25.81 - SECONDARY HYPERPARATHYROIDISM OF RENAL ORIGIN Status: Acute (6) BPH (benign prostatic hyperplasia) Code(s): N40.0 - BENIGN PROSTATIC HYPERPLASIA WITHOUT LOWER URINRY TRACT SYMP Status: Suspected (7) Obstructive uropathy Code(s): N13.9 - OBSTRUCTIVE AND REFLUX UROPATHY, UNSPECIFIED Status: Acute - Plan Plan: 64 yo M presented to the ED with lightheadedness and found to have acute renal failure. Acute Renal Failure 2/2 Likely obstructive uropathy - Cr 4.81 this AM, continued slow improvement w/ eGFR of 15 - Will continue to monitor renal function until pt reaches new baseline. Continue strict I&Os as well. - Discussed case with Dr. Franz, Urology, on 02/07. Per Urology, once renal function levels out pt is to be dc'd home with mason and f/u with him in 2 weeks as anb outpatient. Will have bladder function evaluations at that time and be assessed further for cause of obstruction w/ likely cystoscopy - Continue flomax Secondary Hyperparathyroidism - Continue calcitriol per nephro recs. Bacteriuria - culture negative, abx dc'd Anemia - improving - Iron studies consistent w/ ACD - Cont iron supplementation Hyponatremia - Likely related to renal insufficiency. Na down to 130 this AM but asymptomatic. Will continue to trend. Elevated Troponin - downtrended, likely 2/2 ARF Hypertension - Will continue amlodipine & add/titrate meds PRN. Diet: Renal, HH IVF: SL Code status: Full Dispo: Plan for possible DC today w/ mason in place for outpt Uro f/u for further evaluation of obstructive etiology & nephrology for close monitoring of renal function.
[2020-02-10 08:15] VITALS: BP 131/84
[2020-02-10] MEDS: Ferrous Sulfate 325 MG TAB PO SCH (08:24)
[2020-02-10] MEDS: Tamsulosin HCl 0.4 MG CAP PO SCH (08:25)
[2020-02-10] MEDS: Amlodipine 5 MG TAB PO SCH (08:25)
[2020-02-10] MEDS: Heparin 5,000 UNITS/ML VIAL SC SCH (08:28)
[2020-02-10] MEDS ORDERED: Calcitriol 0.25 MCG CAP PO SCH (09:00)
--- NOTE | 2020-02-10 09:18 | PRG ---
DATE OF SERVICE: 02/10/2020 SUBJECTIVE: Mr. Crawford is a 64-year-old black male, followed up for his chronic renal failure secondary to chronic obstructive uropathy. He has been evaluated by Urology. He voices no new complaints. He denies any chest pain or shortness of breath. Please note, he came in with an acute low bladder outlet obstruction on top of his chronic obstructive uropathy. He has a Gomez catheter in. He is diuresing. OBJECTIVE: VITAL SIGNS: Blood pressure 131/84, heart rate 74, respiratory rate 18, temperature 97.8 pulse oximetry 98%. GENERAL: Noted to be awake, alert, comfortable, not in distress. SKIN: Adequate turgor. HEENT: Pinkish conjunctivae, anicteric sclerae. NECK: No neck mass. No carotid bruits. No JVD. CHEST: No deformities. LUNGS: Clear breath sounds. HEART: Normal sinus rhythm. No murmur. No gallops. No rubs. ABDOMEN: Globular, soft, nontender. No masses. EXTREMITIES: No edema, no deformities. MEDICATIONS: Medications of February 10, 2020, reviewed. LABORATORY DATA: February 10, 2020, sodium 130, potassium 4.6, chloride 101, carbon dioxide 17, BUN 53, creatinine 4.81, glucose 99, calcium 9.2. ASSESSMENT AND PLAN: 1. Chronic renal failure. Slowly improving renal function. GFR is now 15 mL/minute. He has underlying chronic obstructive uropathy. He has a Gomez catheter. He is diuresing well. No indication for any dialytic intervention. Will only consider dialysis if GFR is less than 10 mL/minute. 2. Low bladder outlet obstruction-for future cystoscopy. 3. Secondary hyperparathyroidism, currently on calcitriol. Recheck basic metabolic panel and CBC in a.m. From a renal point of view, he could be discharged any time. Job ID: [id number]
[2020-02-10] MEDS ORDERED: Polyethylene Glycol 3350 17 GM Packet PO PRN (10:30)
[2020-02-10] MEDS ORDERED: Docusate 100 MG CAP PO PRN (10:30)
--- NOTE | 2020-02-10 19:12 | DIS ---
DATE OF ADMISSION: 02/05/2020 DATE OF DISCHARGE: 02/10/2020 RESIDENT: Zenaida Levy MD. DISCHARGE ATTENDING: Brant Doshi MD. CONSULTS: 1. Nephrology, Dr. Jeremiah Larios. 2. Urology, Dr. Yunior Franz. PROCEDURES: 1. Chest x-ray on 02/05/2020, notable for, which showed no acute cardiopulmonary disease. 2. Renal ultrasound on 02/05/2020, which was notable for severe bilateral hydronephrosis with diffuse renal parenchymal cortical thickening, suggesting that the hydronephrosis is chronic and long-standing as well severe urinary bladder distention with a postvoid bladder volume of 2000 mL, very poor micturition. 3. Abdomen and pelvis CT on 02/07/2020, which was notable for marked irregular mural thickening involving the urinary bladder circumferentially, cystitis versus neoplasm. Several small foci of intramural gas are noted, which may reflect ulceration or emphysematous change. Severe bilateral hydronephrosis and hydroureter, presumably UVJ obstruction related to bladder wall abnormality. PRIMARY DIAGNOSES: 1. Acute renal failure secondary to acute on chronic obstructive uropathy. 2. Hyponatremia. 3. Secondary hyperparathyroidism. SECONDARY DIAGNOSES: 1. Anemia of chronic disease. 2. Hypertension. DISCHARGE MEDICATIONS: 1. Acetaminophen 650 mg p.o. q.4 hours p.r.n. 2. Norvasc 5 mg p.o. daily. 3. Calcitriol 0.25 mcg p.o. daily. 4. Docusate 100 mg p.o. b.i.d. p.r.n. 5. Ferrous sulfate 325 mg p.o. b.i.d. with meals. 6. MiraLAX 17 g p.o. daily p.r.n. 7. Flomax 0.4 mg p.o. daily. DISCONTINUED MEDICATIONS: Terazosin 1 mg p.o. daily. HOSPITAL COURSE: The patient is a 64-year-old gentleman with a past medical history notable for hypertension and history of UTIs, who was previously followed by Urology, who presented to the emergency department with a chief complaint of lightheadedness. On presentation to the emergency department , the patient's vitals were noted to be within normal limits, but blood work including a CBC, CMP, UA, and UDS were notable for a normocytic anemia with a hemoglobin of 10.2, MCV of 89.5, and acute renal failure with hyponatremia with a sodium of 130, BUN of 63, creatinine of 6.83, and eGFR of 10. A renal ultrasound was then obtained, which was notable for severe bilateral hydronephrosis and significant bladder distention with approximately 2 L of retained urine in the bladder prompting urgent placement of a Gomez catheter. The patient was then admitted to the medical floor for continued monitoring of his renal function, and Nephrology, Dr. Jeremiah Larios was consulted. Dr. Larios followed the patient for the duration of his hospital stay and cleared him for discharge by which time his eGFR had slowly risen from 10 to 15. His creatinine had decreased from 6.8 to 4.81. He was also noted to have concomitant anemia of chronic disease and secondary hyperparathyroidism for which he was started on p.o. iron and calcitriol per Nephrology's Rx. Regarding his severe hydronephrosis and obstruction with poor urinary output, Urology, Dr. Yunior Franz, was consulted to evaluate the patient and an abdomen and pelvis CT was obtained, which again noted findings similar to what was seen on the ultrasound with the addition of possible bladder neoplasm. Dr. Franz therefore recommended that the Gomez remain in place for approximately 2 weeks, by which time the patient would need to follow up with him as an outpatient for likely cystoscopy to rule out malignancy as a potential source of his obstruction. Regarding the patient's hyponatremia, his sodium is slightly down trended to 130 by the date of discharge, but the patient remained asymptomatic. This was presumed to be secondary to his renal insufficiency & will need to be followed on outpatient basis with his PCP in addition to his renal function. DISPOSITION: Stable. DISCHARGE INSTRUCTIONS: 1. Location: Home. 2. Diet: Renal diet, heart healthy diet. 3. Activity: As tolerated. No restrictions. 4. Followup: The patient was instructed to follow up with [facility] within 1 to 3 days of discharge for continued monitoring of his renal function and sodium levels. He was also instructed to follow up with Nephrology within 6 weeks of discharge, and Urology Dr. Yunior Franz within 2 weeks of discharge. Job ID: [id number] MTDD
--- NOTE | 2020-02-11 14:44 | EKG ---
Test Reason : Blood Pressure : / mmHG Vent. Rate : 080 BPM Atrial Rate : 080 BPM P-R Int : 182 ms QRS Dur : 084 ms QT Int : 378 ms P-R-T Axes : 063 038 034 degrees QTc Int : 435 ms Normal sinus rhythm Normal ECG Confirmed by XU MEYER, BENJAMIN ([id number]), editor school photograph ROLF TAYLOR ([id number]) on 02/11/2020 2:44:04 PM Referred By: Confirmed By:BENJAMIN MCNAIR MD
== END 2020-02-10 12:06 | disposition home or self-care (01) | DRG 683 ==
LOC: ERS 13:21 → T4-B 14:53
PROVIDERS: ADMIT Emergency Medicine; ATTEND Emergency Medicine
PROC: 0T9B70Z Drainage of Bladder with Drainage Device, Via Natural or Artificial Opening (ICD-10-PCS; principal; 2020-02-07)
DX: N17.9 Acute kidney failure, unspecified (principal); E87.1 Hypo-osmolality and hyponatremia; N13.30 Unspecified hydronephrosis; R79.89 Other specified abnormal findings of blood chemistry; I12.9 Hypertensive chronic kidney disease with stage 1 through stage 4 chronic kidney disease, or unspecified chronic kidney disease; N18.9 Chronic kidney disease, unspecified; R33.9 Retention of urine, unspecified; D63.1 Anemia in chronic kidney disease; N25.81 Secondary hyperparathyroidism of renal origin; Z79.899 Other long term (current) drug therapy
CPT/HCPCS: 36415; 71045; 74176; 76770; 80048; 80053; 80306; 81001; 82550; 82553; 82570; 82728; 83540; 83550; 83880; 83930; 83935; 83970; 84100; 84153; 84154; 84156; 84300; 84484; 85025; 87086; 93005; J0696; J1644; J2270; J3490

== ENCOUNTER 2020-04-09 06:23 | Outpatient (CLI) | payer OTHER ==
[2020-04-09 12:26] LABS: Hemoglobin 11.8 g/dL (14.0-18.0); Mean Corpuscular HGB CONC 33.9 g/dL (32.0-36.0); Mean Corpuscular Hemoglobin 30.1 pg (27.0-31.0); Mean Corpuscular Volume 88.8 fL (78.0-98.0); Mean Platelet Volume 7.6 fL (7.4-10.4); Platelet Count 219 thou/uL (130-400); RBC Distribution Width 13.3 % (11.5-14.5); Red Blood Cell (RBC) Count 3.91 mill/uL (4.70-6.10); White Blood Cell (WBC) Count 5.4 thou/uL (4.8-10.8)
[2020-04-09 12:31] LABS: PTT 30.3 sec (22.9-36.1); Prothrombin Time 12.8 sec (12.0-14.7)
[2020-04-09 12:48] LABS: Anion Gap 13 mmol/L (10-20); BUN (Urea Nitrogen) 41 mg/dL (8.4-25.7); Calc. Creatinine Clearance 0 mL/min (70-130); Calcium 8.7 mg/dL (7.8-10.44); Carbon Dioxide 19 mmol/L (23-31); Chloride 106 mmol/L (98-107); Estimated GFR-MDRD 17; Glucose 92 mg/dL (80-115); Potassium 4.3 mmol/L (3.5-5.1); Sodium 134 mmol/L (136-145)
[2020-04-09 18:20] LABS: SARS-CoV-2 MS2 Positive; SARS-CoV-2 N Gene Negative; SARS-CoV-2 S Gene Negative; SARS-CoV-2 orf1ab Negative
== END 2020-04-09 06:24 | disposition home or self-care (01) ==
LOC: LABBT 06:23
PROVIDERS: ATTEND Urology
DX: Z01.812 Encounter for preprocedural laboratory examination (principal); Z11.59 Encounter for screening for other viral diseases; N32.81 Overactive bladder; Z60.0 Problems of adjustment to life-cycle transitions
CPT/HCPCS: 80048; 85027; 85610; 85730; 87635; U0003

== ENCOUNTER 2020-06-02 10:51 | Emergency (ER) | payer SELFPAY ==
[2020-06-02 11:34] LABS: #Lymphocytes 2.2 thou/uL (1.20-3.40); #Monocytes 0.6 thou/uL (0.11-0.59); %Basophils 0.1 % (0.0-1.0); %Eosinophils 0.1 % (0.0-10.0); %Lymphocytes 20.4 % (21.0-51.0); %Monocytes 5.4 % (0.0-10.0); %Neutrophils 73.9 % (42.0-75.0); Hemoglobin 8.7 g/dL (14.0-18.0); Mean Corpuscular HGB CONC 31.9 g/dL (32.0-36.0); Mean Corpuscular Hemoglobin 29.6 pg (27.0-31.0); Mean Corpuscular Volume 92.6 fL (78.0-98.0); Mean Platelet Volume 7.2 fL (7.4-10.4); Platelet Count 238 thou/uL (130-400); RBC Distribution Width 12.1 % (11.5-14.5); Red Blood Cell (RBC) Count 2.93 mill/uL (4.70-6.10); White Blood Cell (WBC) Count 10.8 thou/uL (4.8-10.8)
[2020-06-02 11:52] LABS: ALT (SGPT) 7 U/L (8-55); AST (SGOT) 12 U/L (5-34); Albumin 3.5 g/dL (3.4-4.8); Alkaline Phosphatase 68 U/L (40-110); Anion Gap 13 mmol/L (10-20); BUN (Urea Nitrogen) 56 mg/dL (8.4-25.7); Bilirubin, Total 0.5 mg/dL (0.2-1.2); Calc. Creatinine Clearance 0 mL/min (70-130); Calcium 8.1 mg/dL (7.8-10.44); Carbon Dioxide 21 mmol/L (23-31); Chloride 104 mmol/L (98-107); Estimated GFR-MDRD 22; Globulin 2.9 g/dL (2.4-3.5); Glucose 118 mg/dL (80-115); Potassium 4.5 mmol/L (3.5-5.1); Protein, Total 6.4 g/dL (5.8-8.1); Sodium 133 mmol/L (136-145)
--- NOTE | 2020-06-02 12:26 | RAD ---
PORTABLE CHEST: Date: 06/02/2020 INDICATION: Dizziness. FINDINGS: Lungs appear clear. No infiltrate identified. Heart and mediastinum unremarkable. Vasculature normal. IMPRESSION: No acute process identified. POS: AH
[2020-06-02 13:23] LABS: Bacteria/HPF 4+ HPF (None Seen); Bilirubin Negative (Negative); Blood, Urine Negative (Negative); Clarity Turbid (Clear); Glucose, Urine (Dipstick) Normal (Negative); Ketone, Urine Negative (Negative); Leukocyte 500 Leu/uL (Negative); Nitrite Negative (Negative); Protein, Urine (Dipstick) Negative (Neg-Trace); RBC/HPF 0-3 HPF (0-3); Specific Gravity, Urine 1.013 (1.002-1.036); Squamous Epithelial None Seen HPF (0-3); Urobilinogen Normal mg/dL (Less than 2); WBC/HPF Greater than 50 HPF (0-3); pH, Urine 6.5 (5.0-9.0)
== END 2020-06-02 15:03 | disposition home or self-care (01) ==
LOC: ERS 10:51
DX: R42 Dizziness and giddiness (principal); N40.0 Benign prostatic hyperplasia without lower urinary tract symptoms; I10 Essential (primary) hypertension; Z79.899 Other long term (current) drug therapy
CPT/HCPCS: 36415; 71045; 80053; 81003; 81015; 84484; 85025; 87077; 87086; 87186; 93005; 96360; 96361

== ENCOUNTER 2020-06-02 16:21 | Inpatient (IN) | payer OTHER, SELFPAY ==
[2020-06-02 16:58] LABS: #Basophils 0.1 thou/uL (0.0-0.2); #Lymphocytes 2.3 thou/uL (1.20-3.40); #Monocytes 0.6 thou/uL (0.11-0.59); #Neutrophils 6.4 thou/uL (1.40-6.50); %Basophils 0.6 % (0.0-1.0); %Eosinophils 0.1 % (0.0-10.0); %Lymphocytes 24.3 % (21.0-51.0); %Monocytes 6.3 % (0.0-10.0); %Neutrophils 68.7 % (42.0-75.0); Hemoglobin 7.2 g/dL (14.0-18.0); Mean Corpuscular Volume 94.1 fL (78.0-98.0); Mean Platelet Volume 6.6 fL (7.4-10.4); Platelet Count 200 thou/uL (130-400); RBC Distribution Width 12.1 % (11.5-14.5); Red Blood Cell (RBC) Count 2.31 mill/uL (4.70-6.10); White Blood Cell (WBC) Count 9.4 thou/uL (4.8-10.8)
[2020-06-02] MEDS ORDERED: Pantoprazole 80 MG, Admixture Fee 1 EACH in Sodium Chloride 0.9% 100 ML IVPB SCH (17:00)
[2020-06-02] MEDS ORDERED: Pantoprazole 40 MG VIAL ONE (17:01)
[2020-06-02] MEDS ORDERED: Acetaminophen 325 MG TAB PO PRN (17:24)
[2020-06-02] MEDS ORDERED: Ondansetron ODT 4 MG TAB PO PRN (17:24)
[2020-06-02] MEDS ORDERED: Senokot S 8.6-50 MG TAB PO PRN (17:24)
[2020-06-02] MEDS ORDERED: Pantoprazole 80 MG in Sodium Chloride 0.9% 100 ML IVPB SCH (17:30)
[2020-06-02 18:04] LABS: Hemoglobin 6.8 g/dL (14.0-18.0)
[2020-06-02 19:05] LABS: Anion Gap 13 mmol/L (10-20); BUN (Urea Nitrogen) 56 mg/dL (8.4-25.7); Calc. Creatinine Clearance 0 mL/min (70-130); Calcium 7.5 mg/dL (7.8-10.44); Carbon Dioxide 18 mmol/L (23-31); Chloride 109 mmol/L (98-107); Estimated GFR-MDRD 23; Glucose 107 mg/dL (80-115); Magnesium 1.6 mg/dL (1.6-2.6); Potassium 4.7 mmol/L (3.5-5.1); Sodium 135 mmol/L (136-145)
--- NOTE | 2020-06-02 19:51 | HP ---
CHIEF COMPLAINT: GI bleed and dark tarry stool. HISTORY OF PRESENT ILLNESS: A 64-year-old male with a history of hypertension, history of urinary tract infection, follows with urologist, Dr. Franz had recently obstructive uropathy, a Mason placed in February 2020 presenting with the dizzy symptoms. He was in the ER early this morning with chief complaint of lightheadedness and being in the sun and dehydrated. orthostasis negative. He came back due to dark tarry stool. They checked a hemoglobin and it was 7.2. The patient will be admitted for GI bleed workup. The patient does not take any aspirin or ibuprofen and not on antiplatelets and anticoagulation. He did not have any GI bleed in the past, but states that he had any EGD before. He also has chronic indwelling catheter for obstructive uropathy. This was placed in February 2020. The plan is to follow with Dr. Franz in 2 weeks. The patient also has chronic kidney disease, follows with Dr. Larios. Currently, repeat hemoglobin is 6.8. REVIEW OF SYSTEMS: A 13-point review of systems reviewed. The patient does not have any major concern such as no recent fever, night sweats, chills, or productive cough. No nausea, vomiting, abdominal pain, constipation, other than that black tarry stool as listed above. Denies headache or blurriness at this point. ALLERGIES: HE HAS NO KNOWN DRUG ALLERGY. PAST MEDICAL HISTORY: Hypertension, secondary hyperparathyroidism, chronic kidney disease stage 3, anemia of chronic disease, obstructive uropathy. MEDICATIONS: 1. Flomax 0.4 mg daily. 2. Calcitriol 0.25 mcg daily. 3. Norvasc 5 mg daily. SOCIAL HISTORY: Does not smoke. Occasional alcohol use. FAMILY HISTORY: Significant for mother had a stroke. PHYSICAL EXAMINATION: VITAL SIGNS: He is afebrile, normotensive. GENERAL: He is alert and oriented x4, not in any acute distress. CARDIOVASCULAR: Regular rate and rhythm without murmurs, rubs, or gallops. LUNGS: Clear to auscultation bilaterally without wheezing, rales, or rhonchi. ABDOMEN: Soft, nontender, and nondistended. Good bowel sounds. EXTREMITIES: Without pitting edema. LABORATORY DATA: Hemoglobin 7.2, platelets 200, and WBC 9.4. No chemistry panel. IMPRESSION AND PLAN: A 64-year-old male with a history of hypertension, obstructive uropathy with indwelling catheter, presenting with the followin. Possible upper gastrointestinal bleed. Etiology unknown as the patient is not on any blood thinner. Does not take aspirin, ibuprofen. He will continue with Protonix drip. His hemoglobin is dropping, so we will do the 2 units transfusion. a. GI consult has been placed. We will notify Dr. Mathews, who is on-call today. b. Keep him n.p.o. midnight. 2. Obstructive uropathy, during this hospitalization maybe we need to contact Dr. Franz for ongoing mason catheter. 3. Secondary hyper-PTH and chronic kidney disease, stage 3. 4. Anemia of chronic disease. They are stable except anemia being treated now. 5. Avoid deep venous thrombosis prophylaxis with anticoagulant. Rest of the management based on clinical course. Full code. Job ID: [id number] MTDD
[2020-06-02 21:51] VITALS: BMI 25.7
[2020-06-02] MEDS: Calcitriol 0.25 MCG CAP PO SCH (22:32)
[2020-06-02] MEDS: Amlodipine 5 MG TAB PO SCH (22:33)
[2020-06-02] MEDS: Tamsulosin HCl 0.4 MG CAP PO SCH (22:33)
[2020-06-02 23:31] LABS: Hemoglobin 7.5 g/dL (14.0-18.0)
[2020-06-03 06:22] LABS: #Eosinphils 0.1 thou/uL (0.0-0.7); #Lymphocytes 2.6 thou/uL (1.20-3.40); #Monocytes 0.5 thou/uL (0.11-0.59); #Neutrophils 4.4 thou/uL (1.40-6.50); %Basophils 0.6 % (0.0-1.0); %Eosinophils 0.9 % (0.0-10.0); %Lymphocytes 34.4 % (21.0-51.0); %Monocytes 6.6 % (0.0-10.0); %Neutrophils 57.4 % (42.0-75.0); Hemoglobin 8.4 g/dL (14.0-18.0); Mean Corpuscular HGB CONC 33.1 g/dL (32.0-36.0); Mean Corpuscular Hemoglobin 30.7 pg (27.0-31.0); Mean Corpuscular Volume 92.7 fL (78.0-98.0); Mean Platelet Volume 7.2 fL (7.4-10.4); Platelet Count 178 thou/uL (130-400); RBC Distribution Width 12.3 % (11.5-14.5); Red Blood Cell (RBC) Count 2.75 mill/uL (4.70-6.10); White Blood Cell (WBC) Count 7.7 thou/uL (4.8-10.8)
[2020-06-03 06:43] LABS: Anion Gap 12 mmol/L (10-20); BUN (Urea Nitrogen) 53 mg/dL (8.4-25.7); Calc. Creatinine Clearance 28 mL/min (70-130); Calcium 7.6 mg/dL (7.8-10.44); Carbon Dioxide 19 mmol/L (23-31); Chloride 109 mmol/L (98-107); Estimated GFR-MDRD 23; Glucose 98 mg/dL (80-115); Sodium 136 mmol/L (136-145)
--- NOTE | 2020-06-03 07:26 | CON ---
DATE OF CONSULTATION: 06/02/2020 REASON FOR CONSULTATION: Melena. HISTORY OF PRESENT ILLNESS: Mr. Crawford is a 64-year-old male, who has chronic renal failure from obstructive uropathy, who actually presented twice to the ER today. He presented the first time this morning when he felt lightheaded and was noted to be anemic. However, he did not relate having had an episode of coffee-grounds emesis yesterday after eating some [place] food. He also had a questionable small amount of melenic stool last night. 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 Once get home from the initial ER visit this afternoon, he was brought back to the emergency room feeling more weak. He subsequently had a melenic stool in the ER. He denies having any current nausea or vomiting. There is no abdominal pain or discomfort. The patient denies having had any previous GI bleeding. He does not take any nonsteroidal anti-inflammatory medication. Currently, his vital signs were stable. He has no risk factors for chronic liver disease. PAST MEDICAL HISTORY: 1. Chronic renal failure from some form of low bladder outlet obstruction. The patient has an indwelling catheter. 2. Hypertension. 3. Previous UTIs. 4. History of right wrist ligament injury requiring surgery. MEDICATIONS: At home, include; 1. Amlodipine 5 mg daily. 2. Tamsulosin 0.4 mg at bedtime. 3. Rocaltrol 0.25 mcg daily. ALLERGIES: NO KNOWN DRUG ALLERGIES. SOCIAL HISTORY: The patient is . He denies using any tobacco products or consuming any alcohol. FAMILY HISTORY: Negative for any known GI problem, liver disease, or GI malignancy. REVIEW OF SYSTEMS: GENERAL: Weight is stable. EYE, EARS, NOSE, AND THROAT: Negative. CV: Denies any chest pain. CHEST: He does get short of breath since yesterday. GI: As above. : As above. NEURO: No muscle weakness or sensory deficit. No localizing weakness or sensory deficit. SKIN: No new rashes. PHYSICAL EXAMINATION: VITAL SIGNS: Temperature is 98.2, blood pressure 110/70, and pulse of 96. GENERAL: He is alert and conversant without any distress. HEENT: Shows anicteric sclerae. Oropharynx is clear. CV: Shows normal S1 and S2. Regular rate and rhythm. CHEST: Shows breath sounds. ABDOMEN: Mildly protuberant, but soft. No distention. No tympany. No tenderness. He has active bowel sounds. No palpable mass or organomegaly. EXTREMITIES: Shows no edema. LABORATORY DATA: WBCs 9.4, hemoglobin 7.2, and platelet count of 200. His baseline hemoglobin is around 11 to 12. Sodium 133, potassium 4.5, chloride 104, CO2 of 21, creatinine 3.46, BUN of 56, bilirubin 0.5, AST 12, ALT of 7, and alkaline phosphatase 68. ASSESSMENT: 1. Evidence of upper gastrointestinal bleed characterized as melena with one episode of coffee-ground emesis yesterday. His blood count slowly has dropped from baseline; however, he remains hemodynamically stable. No signs of actively overt bleeding at the present time. Differential diagnosis includes peptic ulcer disease, less likely mucosal tear or bleeding from varices as there are no physical stigmata of hepatic cirrhosis. 2. Anemia, acute from chronic, likely from GI blood loss. 3. Hypertension. 4. Obstructive uropathy with chronic renal failure. RECOMMENDATION: 1. Continue pantoprazole drip as ordered. 2. Continue to trend blood count, transfuse if hemoglobin is less than 7. 3. We will order COVID-19 PCR test. 4. EGD planned for tomorrow or sooner if indicated. 5. We will follow. Job ID: [id number]
[2020-06-03] MEDS ORDERED: Acetaminophen 650 MG Suppository PR PRN (07:47)
[2020-06-03] MEDS ORDERED: Loperamide HCl 2 MG CAP PO PRN (07:47)
[2020-06-03] MEDS ORDERED: diphenhydrAMINE 50 MG/ML VIAL IVP PRN (07:47)
[2020-06-03] MEDS ORDERED: Cepastat Lozenges 1 LOZ PO PRN (07:47)
[2020-06-03] MEDS ORDERED: Calcium Carbonate 500 MG ChewTAB PO PRN (07:47)
[2020-06-03] MEDS ORDERED: Bisacodyl 10 MG SUPP PR PRN (07:47)
[2020-06-03] MEDS ORDERED: Zolpidem Tartrate 5 MG TAB PO PRN (07:47)
[2020-06-03] MEDS ORDERED: Ondansetron PF 4 MG/2 ML Vial IVP PRN (07:47)
[2020-06-03] MEDS ORDERED: hydrALAZINE 20 MG/ML VIAL SLOW IVP PRN (07:47)
[2020-06-03] MEDS ORDERED: Sodium Chloride 0.65% Nasal 44 ML BOT EA NARE PRN (07:47)
[2020-06-03] MEDS ORDERED: PROPOFOL 200 MG/20 ML VIAL ONE (09:02)
[2020-06-03] MEDS ORDERED: Glycopyrrolate 0.2 MG/ML 5 ML SYRINGE ONE (09:02)
[2020-06-03] MEDS ORDERED: Lidocaine 1% PF 5 ML VIAL ONE (09:02)
[2020-06-03] MEDS ORDERED: EPHEDRINE 25 MG/5 ML SYRINGE ONE (09:02)
[2020-06-03] MEDS ORDERED: PHENYLEPHRINE-NS 100 MCG/ML 10 ML SYRINGE ONE (09:02)
[2020-06-03] MEDS ORDERED: HYDROmorphone 2 MG/ML VIAL SLOW IVP PRN (10:40)
[2020-06-03] MEDS ORDERED: Promethazine HCl 25 MG/ML VIAL SLOW IVP PRN (10:40)
[2020-06-03] MEDS ORDERED: Promethazine HCl 25 MG/ML VIAL IM PRN (10:40)
[2020-06-03] MEDS ORDERED: Ondansetron HCl/PF 4 MG/2 ML Vial IVP PRN (10:40)
[2020-06-03] MEDS ORDERED: Meperidine HCl/PF 25 MG/ML VIAL SLOW IVP PRN (10:40)
--- NOTE | 2020-06-03 11:20 | PDOC.HOSPP ---
- Subjective Encounter Date: 06/03/20 Encounter Time: 11:00 Subjective: Patient seen and examined bedside today, no overnight event, no new complaint, patient is doing much better patient had upper endoscopy today and he was found with the peptic ulcer disease. - Objective Vital Signs & Weight: Vital Signs (12 hours) Temp Pulse Resp BP Pulse Ox 06/03/20 07:18 97.8 F 65 18 128/69 99 06/03/20 04:28 98.4 F 18 100 06/03/20 03:37 97.5 F L 78 18 118/76 99 06/03/20 01:55 98 F 18 100 06/03/20 01:35 98 F 18 97 Weight Weight 194 lb 11.2 oz Most Recent Monitor Data Heart Rate from ECG 70 NIBP 134/76 I&O: 06/02/20 06/03/20 06/04/20 06:59 06:59 06:59 Intake Total 0 930 Output Total 1200 Balance 0 -270 Result Diagrams: 06/03/20 06:08 06/03/20 06:08 Radiology Reviewed by me: Yes EKG Reviewed by me: Yes Hospitalist ROS - Review of Systems ENT: denies: ear pain, ear discharge, nose pain, nose discharge, nose congestion , mouth pain, mouth swelling, throat pain, throat swelling, other Respiratory: denies: cough, dry, shortness of breath, hemoptysis, SOB with excertion, pleuritic pain, sputum, wheezing, other Cardiovascular: denies: chest pain, palpitations, orthopnea, paroxysmal noc. dyspnea, edema, light headedness, other Gastrointestinal: denies: nausea, vomiting, abdominal pain, diarrhea, constipation, melena, hematochezia, other Genitourinary: denies: dysuria, frequency, incontinence, hematuria, retention, other Musculoskeletal: denies: neck pain, shoulder pain, arm pain, back pain, hand pain, leg pain, foot pain, other - Medication Medications: Active Medications Generic Name Dose Route Start Last Admin Trade Name Freq PRN Reason Stop Dose Admin Amlodipine Besylate 5 mg 06/02/20 21:00 06/02/20 22:33 Norvasc PO 5 mg QPM TASHA Administration Calcitriol 0.25 mcg 06/02/20 21:00 06/02/20 22:32 Rocaltrol PO 0.25 mcg QPM TASHA Administration Sodium Chloride 10 ml 06/03/20 09:00 06/03/20 08:36 Flush - Normal Saline IVF 10 ml Q12HR TASHA Administration Tamsulosin HCl 0.4 mg 06/02/20 21:00 06/02/20 22:33 Flomax PO 0.4 mg QPM TASHA Administration - Exam General Appearance: NAD, awake alert Eye: PERRL, anicteric sclera ENT: normocephalic atraumatic, no oropharyngeal lesions Neck: supple, symmetric, no JVD, no thyromegaly Heart: RRR, no murmur, no gallops, no rubs Respiratory: CTAB, no wheezes, no rales, no ronchi Gastrointestinal: soft, non-tender, non-distended, normal bowel sounds Extremities: no cyanosis, no clubbing Skin: normal turgor, no lesions Neurological: no focal deficits Musculoskeletal: normal tone, normal strength Psychiatric: normal affect, normal behavior Hosp A/P - Plan old records reviewed/req Assessment Upper GI bleed Acute on chronic anemia due to GI blood loss s/p 3 unit transfusion Hypertension Obstructive uropathy with chronic renal failure CKD stage IV Benign enlargement of prostate Plan Patient is plan for EGD today Patient's H&H has been improved, Depending upon EGD finding and if gastroenterology okay then will consider discharging today or tomorrow Repeat labs tomorrow Continue IV Protonix drip
[2020-06-03 11:56] LABS: SARS-CoV-2 MS2 Positive; SARS-CoV-2 N Gene Negative; SARS-CoV-2 S Gene Negative; SARS-CoV-2 by NAA Not Detected (NotDetected); SARS-CoV-2 orf1ab Negative
--- NOTE | 2020-06-03 13:09 | CON ---
DATE OF CONSULTATION: 06/03/2020 The patient was admitted with a GI bleed. It looks like it is an upper GI bleed. His hemoglobin is low, but his vital signs are stable and his hemoglobin is not dropping. It looks like he had an EGD today and some biopsies. A Gomez catheter still in place. I have seen him because of urinary retention, presumed with bladder outlet obstruction. In addition, he has developed chronic renal failure from this. His creatinine currently stable. We had set him up for TURP this past Monday that would be 2 days ago. He canceled because of work issues. We will probably wait a couple weeks to reschedule this and let him get over this bleed and let his hemoglobin stabilized. I talked to him about this. My office will set him up and let him know. Job ID: [id number]
--- NOTE | 2020-06-03 13:29 | OP ---
DATE OF PROCEDURE: 06/03/2020 PROCEDURES PERFORMED: Esophagogastroduodenoscopy with biopsy and control of hemorrhage. INDICATIONS FOR PROCEDURE: Hematemesis and melena with anemia secondary to acute GI hemorrhage. DESCRIPTION OF PROCEDURE: After the risks and benefits of the procedure were explained to the patient including risks of bleeding, infection, perforation, reactions to anesthesia, aspiration, and/or pain, informed consent was obtained. The patient was then taken to the endoscopy suite where he was maneuvered into the left lateral decubitus position followed by introduction of deep sedation via propofol and anesthesia support. Once adequate sedation was achieved, the therapeutic gastroscope was introduced into the mouth with intubation of the esophagus, stomach, and the proximal small intestines with the findings listed below. The patient tolerated the procedure well with no immediate perioperative complications. On conclusion of the procedure, all equipment was removed from the patient and he was transferred to PACU in satisfactory condition. FINDINGS: Esophagus: Normal-appearing mucosa was seen in the proximal, mid, and distal esophagus. There was no evidence of erosions, ulcerations, mass lesions, or active/recent bleeding. Stomach: Normal-appearing mucosa was seen in the gastric cardia, fundus, body, greater curvature, and incisura. However, a 3-mm clean-based ulceration was seen in the prepyloric region of the antrum with no high-risk stigmata of active or recent bleeding. Biopsies were taken of this ulceration as well as random areas throughout the stomach for evaluation of H pylori status. Otherwise, there was only mild nodularity seen within the gastric antrum, but no additional ulcerations, erosions, or bleeding seen in this region. Duodenum: An 8- to 9-mm cratered ulceration was seen in the duodenal sweep at the distal end of the duodenal bulb, but did not display any high-risk stigmata of active or recent bleeding. Surrounding this ulceration where was increased mucosal erythema, edema, and in some places mild oozing of blood from multiple sites. These areas of oozing of blood were then intervened upon with bipolar cauterization with good hemostasis achieved (approximately 4 sites altogether). Further evaluation of the second portion of the duodenum did not reveal any abnormalities. IMPRESSION: 1. An 8- to 9-mm cratered ulceration seen in the distal duodenal bulb with surrounding erythema, edema, and mild oozing of blood around the ulceration (not the actual ulcer itself), now status post bipolar cauterization with good hemostasis achieved. 2. A 3-mm prepyloric/antral ulceration status post biopsies. RECOMMENDATIONS: 1. Would continue to trend his hemoglobin and hematocrit and transfuse as necessary to maintain the hemoglobin and hematocrit of 7/21. 2. Continue to monitor clinically for signs of active GI bleeding. 3. Discontinue the PPI drip in favor of pantoprazole 40 mg IV b.i.d. 4. Would avoid any NSAIDs during this hospitalization or anticoagulation if deemed appropriate. 5. Would place the patient on a clear liquid diet and advance as tolerated. We will continue to follow. Please call with any questions again. Job ID: [id number]
[2020-06-03] MEDS: Tamsulosin HCl 0.4 MG CAP PO SCH (20:30)
[2020-06-03] MEDS: Amlodipine 5 MG TAB PO SCH (20:30)
[2020-06-03] MEDS: Calcitriol 0.25 MCG CAP PO SCH (20:30)
[2020-06-03] MEDS: Pantoprazole 40 MG VIAL IVP SCH (20:31)
[2020-06-04 04:09] LABS: #Basophils 0.1 thou/uL (0.0-0.2); #Eosinphils 0.1 thou/uL (0.0-0.7); #Lymphocytes 2.2 thou/uL (1.20-3.40); #Monocytes 0.5 thou/uL (0.11-0.59); #Neutrophils 5.6 thou/uL (1.40-6.50); %Basophils 0.7 % (0.0-1.0); %Eosinophils 0.9 % (0.0-10.0); %Lymphocytes 25.6 % (21.0-51.0); %Neutrophils 66.8 % (42.0-75.0); Hemoglobin 8.2 g/dL (14.0-18.0); Mean Corpuscular HGB CONC 33.3 g/dL (32.0-36.0); Mean Corpuscular Hemoglobin 30.6 pg (27.0-31.0); Platelet Count 182 thou/uL (130-400); RBC Distribution Width 12.5 % (11.5-14.5); Red Blood Cell (RBC) Count 2.68 mill/uL (4.70-6.10); White Blood Cell (WBC) Count 8.4 thou/uL (4.8-10.8)
[2020-06-04 04:28] LABS: ALT (SGPT) Less than 7 U/L (8-55); AST (SGOT) 10 U/L (5-34); Albumin 3.2 g/dL (3.4-4.8); Alkaline Phosphatase 55 U/L (40-110); Anion Gap 10 mmol/L (10-20); BUN (Urea Nitrogen) 42 mg/dL (8.4-25.7); Bilirubin, Total 0.5 mg/dL (0.2-1.2); Calc. Creatinine Clearance 30 mL/min (70-130); Calcium 7.9 mg/dL (7.8-10.44); Carbon Dioxide 21 mmol/L (23-31); Chloride 108 mmol/L (98-107); Estimated GFR-MDRD 24; Globulin 2.4 g/dL (2.4-3.5); Glucose 103 mg/dL (80-115); Magnesium 1.7 mg/dL (1.6-2.6); Potassium 4.1 mmol/L (3.5-5.1); Protein, Total 5.6 g/dL (5.8-8.1); Sodium 135 mmol/L (136-145)
[2020-06-04] MEDS: Pantoprazole 40 MG VIAL IVP SCH (08:34)
[2020-06-04 10:57] VITALS: BP 122/81; TEMP 98.1
--- NOTE | 2020-06-04 13:22 | DIS ---
DATE OF ADMISSION: 06/02/2020 DATE OF DISCHARGE: 06/04/2020 DISCHARGE DISPOSITION: Home. FOLLOWUP: Follow up with primary care physician at [facility] in 1 week. ALLERGIES: NO KNOWN DRUG ALLERGIES. DISCHARGE MEDICATIONS: Protonix 40 mg b.i.d. All other home medications were left unchanged. The patient was seen and examined on the day of discharge. Denies any new complaints. No chest pain, shortness of breath, palpitations reported. BRIEF HOSPITAL COURSE: The patient is a 64-year-old male with hypertension, presented to the emergency room with lightheadedness along with dark tarry stool. He was found to have hemoglobin of 7.2. The patient denied any NSAID use. He was monitored on the telemetry unit. His H and H later on dropped to 6.8. He received total of 2 units of PRBC. His EGD showed 8 to 9 mm cratered ulceration seen in the distal duodenal bulb with surrounding erythema, edema, and mild oozing of blood around the ulceration. The patient underwent cauterization with good hemostasis. He also had 3 mm pre-pyloric/antral ulceration that was biopsied. Protonix has been switched to oral. His H and H have remained stable overnight. He appears stable for discharge. FINAL DIAGNOSES: 1. Upper gastrointestinal bleeding secondary to peptic ulcer disease, status post cauterization. 2. Acute blood loss anemia requiring blood transfusion. 3. Hypertension. 4. Benign prostatic hypertrophy. 5. Obstructive uropathy with chronic indwelling Gomez catheter. 6. Chronic kidney disease, stage 4. 7. Hyponatremia. 8. Chronic metabolic acidosis. 9. Anemia of chronic disease. 10. Secondary hyperparathyroidism. The patient understands the above plan of care. Job ID: [id number]
== END 2020-06-04 12:20 | disposition home or self-care (01) | DRG 378 ==
LOC: ERS 16:21 → 2NO 17:10
PROVIDERS: ADMIT Internal Medicine; ATTEND Internal Medicine
PROC: 30233N1 Transfusion of Nonautologous Red Blood Cells into Peripheral Vein, Percutaneous Approach (ICD-10-PCS; 2020-06-02)
PROC: 0W3P8ZZ Control Bleeding in Gastrointestinal Tract, Via Natural or Artificial Opening Endoscopic (ICD-10-PCS; principal; 2020-06-03)
PROC: 0DB68ZX Excision of Stomach, Via Natural or Artificial Opening Endoscopic, Diagnostic (ICD-10-PCS; 2020-06-03)
PROC: 0DB78ZX Excision of Stomach, Pylorus, Via Natural or Artificial Opening Endoscopic, Diagnostic (ICD-10-PCS; 2020-06-03)
DX: K26.4 Chronic or unspecified duodenal ulcer with hemorrhage (principal); D62 Acute posthemorrhagic anemia; N13.8 Other obstructive and reflux uropathy; N18.4 Chronic kidney disease, stage 4 (severe); E87.1 Hypo-osmolality and hyponatremia; E87.2 Acidosis; N25.81 Secondary hyperparathyroidism of renal origin; Z11.59 Encounter for screening for other viral diseases; N40.1 Benign prostatic hyperplasia with lower urinary tract symptoms; I12.9 Hypertensive chronic kidney disease with stage 1 through stage 4 chronic kidney disease, or unspecified chronic kidney disease; K25.9 Gastric ulcer, unspecified as acute or chronic, without hemorrhage or perforation; D63.1 Anemia in chronic kidney disease; R33.8 Other retention of urine; Z79.899 Other long term (current) drug therapy
CPT/HCPCS: 36415; 36430; 80048; 80053; 83735; 85025; 86850; 86900; 86901; 87635; 88305; 88312; C9113; J2704; J3490; P9016; U0003

== ENCOUNTER 2020-06-07 17:14 | Inpatient (IN) | payer SELFPAY ==
[2020-06-07 17:52] LABS: #Basophils 0.1 thou/uL (0.0-0.2); #Eosinphils 0.1 thou/uL (0.0-0.7); #Lymphocytes 2.1 thou/uL (1.20-3.40); #Monocytes 0.5 thou/uL (0.11-0.59); #Neutrophils 5.2 thou/uL (1.40-6.50); %Basophils 0.6 % (0.0-1.0); %Eosinophils 1.6 % (0.0-10.0); %Lymphocytes 26.1 % (21.0-51.0); %Monocytes 6.1 % (0.0-10.0); %Neutrophils 65.6 % (42.0-75.0); Hemoglobin 5.5 g/dL (14.0-18.0); Mean Corpuscular HGB CONC 34.3 g/dL (32.0-36.0); Mean Corpuscular Hemoglobin 31.9 pg (27.0-31.0); Mean Platelet Volume 7.1 fL (7.4-10.4); Platelet Count 205 thou/uL (130-400); RBC Distribution Width 13.4 % (11.5-14.5); Red Blood Cell (RBC) Count 1.72 mill/uL (4.70-6.10); White Blood Cell (WBC) Count 7.9 thou/uL (4.8-10.8)
[2020-06-07 18:07] LABS: ALT (SGPT) Less than 7 U/L (8-55); AST (SGOT) 10 U/L (5-34); Alkaline Phosphatase 50 U/L (40-110); Anion Gap 11 mmol/L (10-20); BUN (Urea Nitrogen) 51 mg/dL (8.4-25.7); Bilirubin, Total 0.3 mg/dL (0.2-1.2); Calc. Creatinine Clearance 0 mL/min (70-130); Calcium 7.7 mg/dL (7.8-10.44); Carbon Dioxide 21 mmol/L (23-31); Chloride 105 mmol/L (98-107); Estimated GFR-MDRD 23; Globulin 2.3 g/dL (2.4-3.5); Glucose 118 mg/dL (80-115); Potassium 3.9 mmol/L (3.5-5.1); Protein, Total 5.3 g/dL (5.8-8.1); Sodium 133 mmol/L (136-145)
[2020-06-07 18:12] LABS: INR-International Normal Ratio 1.1; PTT 26.5 sec (22.9-36.1); Prothrombin Time 14.6 sec (12.0-14.7)
[2020-06-07 18:25] LABS: Iron 36 ug/dL (65-175); Iron Binding Capacity, Total 256 mcg/dL (261-462)
[2020-06-07] MEDS ORDERED: Acetaminophen 650 MG Suppository PR PRN (18:43)
[2020-06-07] MEDS ORDERED: Acetaminophen 325 MG TAB PO PRN ×2 (18:43→20:03)
[2020-06-07] MEDS ORDERED: Pantoprazole 80 MG in Sodium Chloride 0.9% 100 ML IVP SCH (18:45)
[2020-06-07] MEDS ORDERED: Ondansetron ODT 4 MG TAB SL PRN (20:03)
[2020-06-07] MEDS ORDERED: Ondansetron PF 4 MG/2 ML Vial IVP PRN (20:03)
[2020-06-07] MEDS ORDERED: Sodium Chloride 0.9% 1,000 ML IV SCH (20:15)
[2020-06-07 22:41] VITALS: BMI 28.0
--- NOTE | 2020-06-08 02:17 | PDOC.HHP ---
Hospitalist HPI - History of Present Illness Lightheaded and black stool History of Present Illness: Patient presents after an episode of near syncope. He states he has been feeling lightheaded when standing since he was discharged from the hospital a few days ago. States he coughed up a bit of blood which is what happened before his recent discharge. He also noted an episode of black stool today. He does not have any abdominal pain or tenderness. He does not have any nausea or vomiting. He states that he is actually hungry. He has been taking his medications like he was supposed to. Prior to this last GI bleed episode he has never had any GI bleeding issues. During recent admission he had received 3 units of blood while in the hospital and had an EGD done which showed a bleeding duodenal ulcer requiring cauterization. ED COURSE: EKG: NSR, HR 79, Normal ST segments and T waves normal as well. Patient given IV fluids and started on Protonix. Type & Screen done in ED and PRBCs ordered Labs notable for hemoglobin of 5.5, HCT 16, platelets 205. BUN 51, creat 3.34, GFR 23. PAST MEDICAL HISTORY: 1. Hypertension. 2. BPH. 3. Peptic ulcer disease, requiring cauterization. 4. CKD. 5. Dwelling catheter. PAST SURGICAL HISTORY: 1. Right wrist surgery. SOCIAL HISTORY: Denies any heavy alcohol consumption. No history of tobacco use or drug consumption. ALLERGIES: No known drug allergies. CURRENT MEDICATIONS: 1. Amlodipine 5 mg PO daily. 2. Calcitriol 0.25 mcg PO daily. 3. Tamsulosin 0.4 mg PO daily. 4. Pantoprazole 40 mg PO daily. Hospitalist ROS - Medication Medications: Active Medications Generic Name Dose Route Start Last Admin Trade Name Freq PRN Reason Stop Dose Admin Sodium Chloride 10 ml 06/07/20 21:00 06/08/20 01:19 Flush - Normal Saline IVF Not Given Q12HR TASHA - Exam General Appearance: NAD Eye: PERRL, anicteric sclera ENT: normocephalic atraumatic, no oropharyngeal lesions, moist mucosa Neck: supple, symmetric, no lymphadenopathy Heart: RRR, no murmur, no gallops, no rubs, normal peripheral pulses Respiratory: CTAB, no wheezes, no rales, no ronchi, normal chest expansion, no tachypnea Gastrointestinal: soft, non-tender, non-distended, normal bowel sounds, no guarding, no rigidity Extremities: no edema Skin: normal turgor, no lesions, no rashes Neurological: cranial nerve grossly intact, normal sensation to touch, no focal deficits Musculoskeletal: normal tone, normal strength, no muscle wasting Psychiatric: normal affect, normal behavior, A&O x 3 Hospitalist Results - Labs Result Diagrams: 06/07/20 17:39 06/07/20 17:39 Lab results: WBC 7.9 thou/uL (4.8-10.8) 06/07/20 17:39 Hgb 5.5 g/dL (14.0-18.0) L* 06/07/20 17:39 Hct 16.0 % (42.0-52.0) L 06/07/20 17:39 MCV 93.0 fL (78.0-98.0) 06/07/20 17:39 Plt Count 205 thou/uL (130-400) 06/07/20 17:39 Neutrophils % 65.6 % (42.0-75.0) 06/07/20 17:39 Sodium 133 mmol/L (136-145) L 06/07/20 17:39 Potassium 3.9 mmol/L (3.5-5.1) 06/07/20 17:39 Chloride 105 mmol/L (98-107) 06/07/20 17:39 Carbon Dioxide 21 mmol/L (23-31) L 06/07/20 17:39 BUN 51 mg/dL (8.4-25.7) H 06/07/20 17:39 Creatinine 3.34 mg/dL (0.7-1.3) H 06/07/20 17:39 Glucose 118 mg/dL (80-115) H 06/07/20 17:39 Calcium 7.7 mg/dL (7.8-10.44) L 06/07/20 17:39 Total Bilirubin 0.3 mg/dL (0.2-1.2) 06/07/20 17:39 AST 10 U/L (5-34) 06/07/20 17:39 ALT Less than 7 U/L (8-55) L 06/07/20 17:39 Alkaline Phosphatase 50 U/L (40-110) 06/07/20 17:39 Serum Total Protein 5.3 g/dL (5.8-8.1) L 06/07/20 17:39 Albumin 3.0 g/dL (3.4-4.8) L 06/07/20 17:39 Hospitalist H&P A/P - Problem (1) Lightheadedness Code(s): R42 - DIZZINESS AND GIDDINESS Status: Acute (2) Melena Code(s): K92.1 - MELENA Status: Acute (3) History of peptic ulcer disease Code(s): Z87.11 - PERSONAL HISTORY OF PEPTIC ULCER DISEASE Status: Chronic (4) Anemia Code(s): D64.9 - ANEMIA, UNSPECIFIED Status: Chronic Qualifiers: Anemia type: unspecified type Qualified Code(s): D64.9 - Anemia, unspecified (5) History of GI bleed Code(s): Z87.19 - PERSONAL HISTORY OF OTHER DISEASES OF THE DIGESTIVE SYSTEM Status: Chronic (6) Chronic renal disease Code(s): N18.9 - CHRONIC KIDNEY DISEASE, UNSPECIFIED Status: Chronic (7) Hypertension Code(s): I10 - ESSENTIAL (PRIMARY) HYPERTENSION Status: Chronic Qualifiers: Hypertension type: essential hypertension Qualified Code(s): I10 - Essential (primary) hypertension (8) BPH (benign prostatic hyperplasia) Code(s): N40.0 - BENIGN PROSTATIC HYPERPLASIA WITHOUT LOWER URINRY TRACT SYMP Status: Suspected - Plan Plan: Blood transfusion ordered in ED. Monitor H/H. Protonix drip ordered. GI consult requested. Monitor BP. Orthostatic BPs. Gentle hydration. Monitor renal function. CODE STATUS FULL Surrogate decision maker: His Noy Crawford.
[2020-06-08 05:13] LABS: #Eosinphils 0.2 thou/uL (0.0-0.7); #Lymphocytes 2.3 thou/uL (1.20-3.40); #Monocytes 0.6 thou/uL (0.11-0.59); #Neutrophils 5.8 thou/uL (1.40-6.50); %Basophils 0.3 % (0.0-1.0); %Eosinophils 1.8 % (0.0-10.0); %Lymphocytes 25.8 % (21.0-51.0); %Monocytes 6.6 % (0.0-10.0); %Neutrophils 65.5 % (42.0-75.0); Hemoglobin 7.2 g/dL (14.0-18.0); Mean Corpuscular HGB CONC 33.8 g/dL (32.0-36.0); Mean Corpuscular Hemoglobin 31.1 pg (27.0-31.0); Mean Corpuscular Volume 92.2 fL (78.0-98.0); Mean Platelet Volume 7.1 fL (7.4-10.4); Platelet Count 179 thou/uL (130-400); RBC Distribution Width 13.2 % (11.5-14.5); White Blood Cell (WBC) Count 8.9 thou/uL (4.8-10.8)
[2020-06-08 05:14] LABS: Hemoglobin 7.3 g/dL (14.0-18.0)
[2020-06-08 05:26] LABS: ALT (SGPT) Less than 7 U/L (8-55); AST (SGOT) 9 U/L (5-34); Alkaline Phosphatase 47 U/L (40-110); Anion Gap 12 mmol/L (10-20); BUN (Urea Nitrogen) 49 mg/dL (8.4-25.7); Bilirubin, Total 0.5 mg/dL (0.2-1.2); Calc. Creatinine Clearance 29 mL/min (70-130); Calcium 7.9 mg/dL (7.8-10.44); Carbon Dioxide 20 mmol/L (23-31); Chloride 107 mmol/L (98-107); Estimated GFR-MDRD 24; Globulin 2.3 g/dL (2.4-3.5); Glucose 97 mg/dL (80-115); Potassium 3.9 mmol/L (3.5-5.1); Protein, Total 5.3 g/dL (5.8-8.1); Sodium 135 mmol/L (136-145)
[2020-06-08 07:03] LABS: Hemoglobin 7.8 g/dL (14.0-18.0)
[2020-06-08] MEDS ORDERED: Calcium Carbonate 500 MG ChewTAB PO PRN (09:01)
[2020-06-08] MEDS ORDERED: PROPOFOL 200 MG/20 ML VIAL ONE (09:43)
[2020-06-08] MEDS: Sodium Chloride 0.9% 1,000 ML IV SCH ×2 (09:48→17:58)
--- NOTE | 2020-06-08 10:11 | CON ---
DATE OF CONSULTATION: HISTORY OF PRESENT ILLNESS: Mr. Crawford is a 64-year-old black male with known history of chronic renal failure secondary to chronic obstructive uropathy and was admitted for GI bleed. He has received several units of packed RBC. In addition, the patient will undergo an endoscopy this morning. We are being consulted for his chronic renal failure. REVIEW OF SYSTEMS: Positive for melena. No chest pain. No shortness of breath. No nausea. No vomiting. No productive cough. No fever or chills. No shortness of breath. Appetite and energy level are fair. No fever or chills. No joint pains. No gross hematuria. No dysuria. HOME MEDICATIONS: Included the following; 1. Amlodipine 5 mg p.o. daily. 2. Calcitriol 0.25 mcg daily. 3. Tamsulosin 0.4 mg daily. 4. Protonix 40 mg tablet once a day. PAST MEDICAL HISTORY: 1. The patient has history of chronic renal failure from chronic obstructive uropathy. 2. Longstanding hypertension. PAST SURGICAL HISTORY: Status post right hand surgery secondary to trauma, status post cystoscopy. SOCIAL HISTORY: The patient is , one child. Lives in [place]. 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 Education, 10th grade. No IV drug abuse. status post blood transfusion. No tobacco use. Occasional alcohol. ALLERGIES: NONE. TRAUMA: Status post right hand injury. IMMUNIZATIONS: Up-to-date. HOSPITALIZATIONS: Please see past medical history. FAMILY HISTORY: Positive family history of CVA. OBJECTIVE: VITAL SIGNS: Blood pressure is noted at 101/64, heart rate 64, respiratory rate 16, temperature 97.8, and O2 saturation 100%. GENERAL: The patient is awake, alert, comfortable, not in distress. SKIN: Adequate turgor. HEENT: Slightly pale conjunctivae. Anicteric sclerae. NECK: No neck mass. No carotid bruits. No JVD. CHEST: No deformities. LUNGS: Clear breath sounds. No wheezing. No crackles. HEART: Normal sinus rhythm. No murmur. No gallops. No rubs. ABDOMEN: Globular, soft, and nontender. No masses. EXTREMITIES: No edema. No deformities. LABORATORY DATA: Laboratories of June 08, 2020; white count 8.9, hemoglobin 7.2, hematocrit 21.2, and platelet count is 179,000. Sodium 135, potassium 3.9, chloride 107, carbon dioxide 20, BUN 49, creatinine 3.2, calcium is 7.9, ALT less than 7 , AST 9, alkaline phosphatase 47, and albumin 3. ASSESSMENT AND PLAN: 1. Gastrointestinal bleed - the patient is scheduled for an upper GI endoscopy. GI following. 2. Anemia. P.r.n. blood transfusion. 3. Chronic renal failure - stable. He is near baseline GFR. He has underlying chronic obstructive uropathy. He does have a Gomez catheter. Urology is following. There is no indication for any dialytic intervention. Agree with current management. Job ID: [id number] MTDD
[2020-06-08 16:21] LABS: Hemoglobin 7.6 g/dL (14.0-18.0)
--- NOTE | 2020-06-08 18:32 | CON ---
DATE OF CONSULTATION: REASON FOR CONSULT: Possible recurrent GI bleed. HISTORY OF PRESENT ILLNESS: Mr. Crawford is a 64-year-old gentleman, who was recently discharged from the hospital on 06/04/2020. At that time, he presented with an upper GI hemorrhage with melena and one episode of hematemesis. He had a duodenal ulcer that was slightly oozing, but apparently there were no visible vessels and that was cauterized. He had gastric biopsies that did ultimately show H pylori. He reports that he went home on PPI therapy and did take that. He denies taking NSAIDs. He went home this past about 4 days ago. He states he was doing well. He was not sure what to eat. He was just doing soups and liquids and taking some vitamins. He is not sure if he was taking iron, but he states no one told him to. He also began to feel dizzy and lightheaded and thought it was from dehydration in the heat. In the emergency room, he was found to have a black stool on rectal exam, although he reports he is having much less bowel movements than before he was admitted and he was found to be anemic again. Therefore, he was readmitted. His hemoglobin had been at 11.8 back in April. When he came in on 06/02, it was 8.7 and was as low as 6.8. Last admission, he was transfused 2 units of blood, one on the and one on the , and his hemoglobin came back up to 8.2. However, when he returned on 06/07, his hemoglobin was 5.5. He received 2 units of blood, and this morning, his hemoglobin is 7.8. He denies dysphagia or odynophagia. Denies any severe abdominal pain. Denies any NSAID use. Denies any blood thinner use. PAST MEDICAL HISTORY: 1. Chronic renal disease, stage 4. 2. Obstructive uropathy. 3. Longstanding hypertension. 4. Recent ulcer with H pylori on biopsy. MEDICATIONS AT HOME: 1. Amlodipine. 2. Calcitriol. 3. Tamsulosin. 4. Protonix 40 mg once a day. 5. He is taking multivitamin. PAST SURGICAL HISTORY: Right hand surgery secondary to trauma, previous cystoscopy. SOCIAL HISTORY: The patient is , lives in [place]. 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 He does not smoke, drink, or use drugs. ALLERGIES: NONE. PRESENT MEDICATIONS: Here; 1. Tylenol. 2. Tums. 3. Protonix drip. 4. Normal saline at 125. REVIEW OF SYSTEMS: Negative for dysphagia, odynophagia, melena, hematochezia, hematemesis, or chest pain. He has been short of breath and dyspneic on exertion. LABORATORY DATA: Otherwise, white count was 8.9, platelet count 179. INR 1.1. Sodium 135, potassium 3.9, BUN and creatinine were 51 and 3.3 on admission. They were 42 and 3.1 on discharge. Liver function tests normal. Iron 36, TIBC 256, ferritin 41. COVID negative. ASSESSMENT: Drop in hemoglobin. It is unclear if this is equilibration result from his previous admission or if he is having further bleeding. There may be a component of poor bone marrow function with his chronic renal failure leading him not to make more blood. PLAN: Agree with transfusion. Agree with Protonix. We will repeat endoscopy and while he is sedated, I will repeat his rectal exam as well. Job ID: [id number]
--- NOTE | 2020-06-08 19:38 | OP ---
DATE OF PROCEDURE: 06/08/2020 PROCEDURE PERFORMED: Esophagogastroduodenoscopy with control of hemorrhage. PREPROCEDURE DIAGNOSES: 1. Gastrointestinal hemorrhage. 2. Recent admission after gastrointestinal bleeding with an ulcer, found visible vessel which was cauterized to control bleeding at that time. 3. The patient is now presented with recurrent gastrointestinal bleeding requiring transfusion requirements. He has received 2 units of blood last night. POSTPROCEDURE DIAGNOSES: 1. Duodenal ulcer in the apex of the bulb of the duodenum with a visible vessel in the base and at the 9 o'clock position. This had a fibrin clot, this was high risk for rebleeding, and therefore, intervention was performed with injection of 1:10,000 epinephrine and 10-Khmer heater probe cautery with ablation of both vessels. 2. Stomach was otherwise normal in forward and retroflexed views. The esophagus was normal. ANESTHESIA: TIVA. RECOMMENDATIONS: 1. IV Protonix drip today, switch to IV q.12 tomorrow. 2. If the patient shows signs of bleeding, consider platelet transfusion in light of his uremia and chronic renal failure, but if he does not have any further bleeding, this does not need to be done. 3. When he goes home, he is to go home on b.i.d. PPI. He needs to stay in the hospital for 48 hours. He is at high risk for rebleeding. 4. His H pylori can be treated at a later date once we are sure the acute bleeding has been controlled. DESCRIPTION OF PROCEDURE: After the patient was informed of the risk, benefits, and possible complications of endoscopy including perforation, reaction to medication, aspiration, informed consent was obtained. The patient was brought to the endoscopy suite, where he was sedated in gradual fashion. Once he was comfortable, a bite-block was placed in the incisural orifice. The endoscope was advanced to the esophagus, stomach, and second and third portions of the duodenum and slowly removed. There was normal stomach. Normal retroflexed views in the stomach and normal esophagus. The duodenal bulb was entered. Erythema and acute duodenitis were noted. There was an ulcer at the apex and anterior wall of the bulb about a centimeter in size. There were two visible vessels noted, one with fibrin clot and the other with just end vessel noted. These were not actively bleeding, but have stigmata indicating high risk for rebleeding and likely the source of his recurrent melena. Injection was performed with 1:10,000 epinephrine then the both vessels were cauterized with 10-Khmer heater probe. Duodenum distal to this was normal. The area was observed for about 10 to 15 minutes with no further bleeding and good ablation of the vessels. Photo documentation was obtained. The scope was removed. The patient tolerated the procedure well. There were no complications. Job ID: [id number]
--- NOTE | 2020-06-08 19:46 | PDOC.HOSPP ---
- Subjective Encounter Date: 06/08/20 Encounter Time: 16:30 Subjective: Patient seen and examined for GI bleeding. Underwent EGD today. Denies any new hematemesis. Had some dark stool earlier today. No lightheadedness dizziness or syncope reported. - Objective Vital Signs & Weight: Vital Signs (12 hours) Temp Pulse Resp BP BP BP BP 06/08/20 15:43 98.4 F 78 16 122/78 06/08/20 14:11 86 16 144/84 H 06/08/20 13:35 97.9 F 68 18 106/68 06/08/20 12:08 98.4 F 102 H 16 124/72 06/08/20 10:53 97.6 F 71 18 130/83 06/08/20 09:02 06/08/20 07:50 97.8 F 64 16 120/74 103/69 101/64 Pulse Ox 06/08/20 15:43 95 06/08/20 14:11 97 06/08/20 13:35 100 06/08/20 12:08 96 06/08/20 10:53 99 06/08/20 09:02 100 06/08/20 07:50 100 Weight Weight 195 lb 14.4 oz I&O: 06/07/20 06/08/20 06/09/20 06:59 06:59 06:59 Intake Total 1470 1600 Output Total 1100 1500 Balance 370 100 Result Diagrams: 06/08/20 16:08 06/08/20 04:40 Hospitalist ROS - Review of Systems Respiratory: denies: cough, dry, shortness of breath, hemoptysis, SOB with excertion, pleuritic pain, sputum, wheezing, other Cardiovascular: denies: chest pain, palpitations, orthopnea, paroxysmal noc. dyspnea, edema, light headedness, other - Medication Medications: Active Medications Generic Name Dose Route Start Last Admin Trade Name Freq PRN Reason Stop Dose Admin Pantoprazole Sodium 80 mg/ 100 mls @ 10 mls/hr 06/07/20 18:45 06/08/20 05:12 Sodium Chloride IVP 100 mls INF TASHA Administration Sodium Chloride 1,000 mls @ 125 mls/hr 06/08/20 09:00 06/08/20 17:58 Normal Saline 0.9% IV 1,000 mls .Q8H TASHA Administration Sodium Chloride 10 ml 06/07/20 21:00 06/08/20 09:39 Flush - Normal Saline IVF Not Given Q12HR TASHA - Exam General Appearance: NAD Neck: no JVD Heart: RRR, no gallops, no rubs Respiratory: no rales, no ronchi Gastrointestinal: non-tender, normal bowel sounds Extremities: no cyanosis Hosp A/P - Plan DVT proph w/SCDs Upper GI bleeding secondary to peptic ulcer disease Acute blood loss anemia s/p 2 units PRBC CKD stage IV Benign prostatic hypertrophy Obstructive uropathy with chronic indwelling Gomez catheter Hypertension Chronic metabolic acidosis Hyponatremia Anemia of chronic disease Recent hospitalization for GI bleeding Plan: Continue IV Protonix. Patient underwent EGD today that showed visible vessel that was cauterized monitor H&H continue IV fluids. Check orthostatic vitals in a.m. Gastroenterology and and nephrology input appreciated. Recheck labs in a.m. transfuse if hemoglobin less than 7. Patient was counseled to avoid NSAID's.
[2020-06-08] MEDS: Pantoprazole 40 MG VIAL IVP SCH (20:07)
[2020-06-08 22:07] LABS: Hemoglobin 6.9 g/dL (14.0-18.0)
[2020-06-09] MEDS: Sodium Chloride 0.9% 1,000 ML IV SCH ×2 (02:48→10:29)
[2020-06-09 05:58] LABS: #Basophils 0.1 thou/uL (0.0-0.2); #Eosinphils 0.2 thou/uL (0.0-0.7); #Lymphocytes 2.8 thou/uL (1.20-3.40); #Monocytes 0.7 thou/uL (0.11-0.59); #Neutrophils 6.4 thou/uL (1.40-6.50); %Basophils 0.6 % (0.0-1.0); %Eosinophils 2.3 % (0.0-10.0); %Lymphocytes 27.1 % (21.0-51.0); %Monocytes 6.4 % (0.0-10.0); %Neutrophils 63.6 % (42.0-75.0); Hemoglobin 8.3 g/dL (14.0-18.0); Mean Corpuscular HGB CONC 33.2 g/dL (32.0-36.0); Mean Corpuscular Volume 93.4 fL (78.0-98.0); Platelet Count 200 thou/uL (130-400); RBC Distribution Width 13.6 % (11.5-14.5); Red Blood Cell (RBC) Count 2.69 mill/uL (4.70-6.10); White Blood Cell (WBC) Count 10.1 thou/uL (4.8-10.8)
[2020-06-09 06:23] LABS: Anion Gap 12 mmol/L (10-20); BUN (Urea Nitrogen) 40 mg/dL (8.4-25.7); Calc. Creatinine Clearance 31 mL/min (70-130); Calcium 7.8 mg/dL (7.8-10.44); Carbon Dioxide 20 mmol/L (23-31); Chloride 111 mmol/L (98-107); Estimated GFR-MDRD 25; Glucose 94 mg/dL (80-115); Potassium 4.2 mmol/L (3.5-5.1); Sodium 139 mmol/L (136-145)
[2020-06-09] MEDS: Pantoprazole 40 MG VIAL IVP SCH ×2 (08:44→20:14)
[2020-06-09 12:18] LABS: Hemoglobin 8.3 g/dL (14.0-18.0)
--- NOTE | 2020-06-09 17:51 | PRG ---
DATE OF SERVICE: 06/09/2020 SUBJECTIVE: Mr. Crawford had one bowel movement this morning, but he did not look at it. No obvious blood that he reports. He has been up walking some today, but did feel a little lightheaded with ambulation. OBJECTIVE: VITAL SIGNS: Temperature 98.2, pulse 67, blood pressure 137/77. GENERAL: He is in no acute distress. Alert and oriented x3. LUNGS: Clear to auscultation bilaterally. HEART: Regular rate and rhythm without murmur. ABDOMEN: Soft, nontender, and nondistended. Bowel sounds are present. EXTREMITIES: No lower extremity edema. IMPRESSION: 1. Duodenal ulcer, status post cautery of a visible vessel. 2. Anemia of acute blood loss. He has received 3 units total this hospital stay, and his hemoglobin has improved to 8.3 today. RECOMMENDATIONS: 1. Recheck hemoglobin tomorrow morning. 2. Continue proton pump inhibitor twice daily. 3. Advance his diet this evening. Job ID: [id number]
[2020-06-10] MEDS: Sodium Chloride 0.9% 1,000 ML IV SCH (00:15)
[2020-06-10 06:33] LABS: Anion Gap 10 mmol/L (10-20); BUN (Urea Nitrogen) 29 mg/dL (8.4-25.7); Calc. Creatinine Clearance 31 mL/min (70-130); Calcium 7.6 mg/dL (7.8-10.44); Carbon Dioxide 21 mmol/L (23-31); Chloride 109 mmol/L (98-107); Estimated GFR-MDRD 25; Glucose 89 mg/dL (80-115); Potassium 3.9 mmol/L (3.5-5.1); Sodium 136 mmol/L (136-145)
[2020-06-10 07:00] LABS: #Eosinphils 0.3 thou/uL (0.0-0.7); #Lymphocytes 2.4 thou/uL (1.20-3.40); #Monocytes 0.7 thou/uL (0.11-0.59); #Neutrophils 5.1 thou/uL (1.40-6.50); %Basophils 0.5 % (0.0-1.0); %Eosinophils 3.1 % (0.0-10.0); %Lymphocytes 28.4 % (21.0-51.0); Hemoglobin 8.6 g/dL (14.0-18.0); Mean Corpuscular HGB CONC 35.2 g/dL (32.0-36.0); Mean Corpuscular Volume 93.9 fL (78.0-98.0); Mean Platelet Volume 6.8 fL (7.4-10.4); Platelet Count 207 thou/uL (130-400); RBC Distribution Width 13.7 % (11.5-14.5); Red Blood Cell (RBC) Count 2.61 mill/uL (4.70-6.10); White Blood Cell (WBC) Count 8.6 thou/uL (4.8-10.8)
[2020-06-10] MEDS: Pantoprazole 40 MG VIAL IVP SCH ×2 (08:23→20:05)
--- NOTE | 2020-06-10 10:11 | PRG ---
DATE OF SERVICE: 06/10/2020 SUBJECTIVE: Mr. Crawford is a 64-year-old black male, who was admitted for an upper GI bleed. We are being consulted for his chronic renal failure. His chronic renal failure is secondary to a chronic obstructive uropathy and he is on an indwelling Gomez catheter. Recently, he underwent an upper GI endoscopy and a duodenal ulcer in the apex of the bulb was found in a visible vessel. Cauterization was done. The patient is feeling better this morning. No recurrence of GI bleed. OBJECTIVE: VITAL SIGNS: Blood pressure is 130/77, heart rate 71, respiratory rate 18, temperature 98, O2 saturation 100%. GENERAL: Noted to be awake, alert, ambulatory, comfortable, not in distress. SKIN: Adequate turgor. HEENT: Pinkish conjunctivae. Anicteric sclerae. NECK: No neck mass. No carotid bruits. No JVD. CHEST: No deformities. LUNGS: Clear breath sounds. HEART: Normal sinus rhythm. No murmur. No gallops. No rubs. ABDOMEN: Globular, soft, nontender, no masses. EXTREMITIES: No edema. MEDICATIONS: Medications of June 10, 2020, was reviewed. LABORATORY DATA: Laboratories of June 10, 2020; white count 8.6, hemoglobin 8.6, sodium 136, potassium 3.9, chloride 109, carbon dioxide 21, BUN 29, creatinine 3.05, GFR 25 mL/minute, calcium 7.6. ASSESSMENT AND PLAN: 1. Chronic renal failure from chronic obstructive uropathy-the patient has a Gomez catheter. Continue supportive care. Renal function is remaining stable. He has currently stage IV chronic renal failure. There is no indication for any dialytic intervention. 2. Status post upper gastrointestinal bleed-stabilizing. H and H remain stable at the present time. He did undergo an upper GI endoscopy with findings of a duodenal ulcer. GI is following. 3. Overall agree with current management. Recheck CBC and basic metabolic profile in a.m. Job ID: [id number]
--- NOTE | 2020-06-10 11:35 | PDOC.HOSPP ---
- Subjective Encounter Date: 06/09/20 Encounter Time: 14:00 Subjective: Patient seen and examined for GI bleeding. No new melena or hematochezia. No chest pain, palpitations or lightheadedness - Objective Vital Signs & Weight: Vital Signs (12 hours) Temp Pulse Resp BP BP BP BP 06/10/20 08:00 114/75 114/74 130/77 06/10/20 07:59 98.0 F 71 18 130/77 Pulse Ox 06/10/20 08:00 100 06/10/20 07:59 100 Weight Weight 195 lb 14.4 oz I&O: 06/09/20 06/10/20 06/11/20 06:59 06:59 06:59 Intake Total 3225 1050 Output Total 3475 4100 Balance -250 -3050 Result Diagrams: 06/10/20 06:46 06/10/20 05:54 Hospitalist ROS - Review of Systems Respiratory: denies: cough, dry, shortness of breath, hemoptysis, SOB with excertion, pleuritic pain, sputum, wheezing, other Cardiovascular: denies: chest pain, palpitations, orthopnea, paroxysmal noc. dyspnea, edema, light headedness, other Gastrointestinal: denies: nausea, vomiting, abdominal pain, diarrhea, constipation, melena, hematochezia, other - Medication Medications: Active Medications Generic Name Dose Route Start Last Admin Trade Name Freq PRN Reason Stop Dose Admin Pantoprazole Sodium 40 mg 06/08/20 21:00 06/10/20 08:23 Protonix IVP 40 mg Q12HR TASHA Administration Sodium Chloride 10 ml 06/07/20 21:00 06/10/20 08:31 Flush - Normal Saline IVF 10 ml Q12HR TASHA Administration - Exam General Appearance: NAD Heart: RRR, no gallops Respiratory: no wheezes, no ronchi Gastrointestinal: non-tender, non-distended, normal bowel sounds Extremities: no cyanosis, no clubbing Neurological: no new deficit Hosp A/P - Plan DVT proph w/SCDs Upper GI bleeding secondary to peptic ulcer disease Acute blood loss anemia s/p 3 units PRBC CKD stage IV Benign prostatic hypertrophy Obstructive uropathy with chronic indwelling Gomez catheter Hypertension Chronic metabolic acidosis Hyponatremia Anemia of chronic disease Recent hospitalization for GI bleeding Plan: 06/09 Patient received another unit of PRBC today. We will continue to monitor H&H. Advance diet per GI. Monitor vital signs closely. Continue PPIs. DC home in 24 to 48 hours if stable. DC IVF 06/08 Continue IV Protonix. Patient underwent EGD today that showed visible vessel that was cauterized monitor H&H continue IV fluids. Check orthostatic vitals in a.m. Gastroenterology and and nephrology input appreciated. Recheck labs in a.m. transfuse if hemoglobin less than 7. Patient was counseled to avoid NSAID's.
--- NOTE | 2020-06-10 15:14 | PRG ---
DATE OF SERVICE: 06/10/2020 REASON FOR CONSULTATION: Duodenal ulcer with anemia/GI bleeding. SUBJECTIVE: Overnight, the patient did not experience any acute events or problems. Today, he states that he has some mild right upper quadrant abdominal soreness, but could not qualify it or classify it as true pain. Otherwise, he denies any nausea, vomiting, fevers, chills, hematemesis, melena, or hematochezia. On further interview, he did have some mild dizziness with quick positional changes, but has been able to ambulate without difficulty. OBJECTIVE: VITAL SIGNS: Temperature 98, pulse 71, blood pressure 114/75, respiratory rate 18, saturating 100% on room air. GENERAL: The patient was lying in bed, in no acute distress. Alert and oriented x4. CARDIOVASCULAR: Regular rate and rhythm. RESPIRATORY: Clear to auscultation bilaterally. ABDOMEN: Normoactive bowel sounds. Soft, nontender, nondistended. EXTREMITIES: No cyanosis, clubbing, or edema. LABORATORY DATA: CBC with a white blood cell count of 8.6, hemoglobin 8.6, hematocrit 24.5, platelets 207. Chemistry with a sodium 136, potassium 3.9, chloride 109, CO2 of 21, BUN 29, creatinine 3.05, glucose 89. IMAGING DATA: No current GI imaging is available for review. 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 GI bleeding/duodenal ulcer: The patient initially presented to the hospital at the end of May 2020 with complaints of feeling lightheaded/dizziness in addition to possible melenic type stool. He subsequently underwent EGD on June 03, 2020, which showed the presence of a large duodenal bulb ulceration that did not exhibit any high-risk stigmata of bleeding but mild oozing of blood in the erythematous mucosa surrounding the ulceration itself. These were subsequently intervened upon with bipolar cauterization with good hemostasis achieved. During the rest of that hospitalization, the patient did well, was ultimately discharged to home with plans to follow up in the GI Clinic. However, shortly after discharge, the patient continued to have increased dizziness, it prompted re-evaluation in the ER. In the ER, the patient did have a black stool on rectal exam concerning for continued GI bleeding in addition to decreased H and H also again consistent with recurrent GI bleeding. He subsequently underwent a repeat esophagogastroduodenoscopy on June 08, 2020, with re-evaluation of the duodenal bulb ulcer showing a possible visible vessel at this time that was subsequently intervened upon with bipolar cauterization. Since cautery was performed, he has not had any further episodes of melena nor has he had a decrease in his H and H along with a decrease in the BUN to creatinine ratio, indicating response to treatment and low likelihood of recurrent GI bleeding. RECOMMENDATIONS: 1. Would continue to trend his H and H and transfuse as necessary to maintain an H and H of 7/21. 2. Continue to monitor clinically for signs of active GI bleeding. 3. We will continue PPI 40 mg twice daily for the next 4 to 8 weeks or until seen in the GI Clinic. 4. Agree with low-fiber diet. 5. Would continue to avoid any anticoagulation in this patient for at least the next 48 to 72 hours (preferably not being placed on anticoagulation unless clinically indicated). Given his good clinical status, stable H and H, and lack of symptoms consistent with GI bleeding, the patient could be ultimately discharged from a GI standpoint with followup in the GI clinic in the next 2 weeks. We will sign off at this time. Please call with any questions. Job ID: [id number]
--- NOTE | 2020-06-10 20:18 | PDOC.HOSPP ---
- Subjective Encounter Date: 06/10/20 Encounter Time: 10:30 Subjective: Patient seen and examined for GI bleeding. GI bleed denies any denies any new episodes of melena - Objective Vital Signs & Weight: Weight Weight 195 lb 14.4 oz I&O: 06/09/20 06/10/20 06/11/20 06:59 06:59 06:59 Intake Total 3225 1050 Output Total 3475 4100 Balance -250 -3050 Result Diagrams: 06/11/20 05:41 06/11/20 05:41 Hospitalist ROS - Review of Systems Cardiovascular: denies: chest pain, palpitations, orthopnea, paroxysmal noc. dyspnea, edema, light headedness, other Gastrointestinal: denies: nausea, vomiting, abdominal pain, diarrhea, constipation, melena, hematochezia, other - Medication Medications: Active Medications Generic Name Dose Route Start Last Admin Trade Name Freq PRN Reason Stop Dose Admin Pantoprazole Sodium 40 mg 06/08/20 21:00 06/10/20 20:05 Protonix IVP 40 mg Q12HR TASHA Administration Sodium Chloride 10 ml 06/07/20 21:00 06/10/20 20:05 Flush - Normal Saline IVF 10 ml Q12HR TASHA Administration - Exam General Appearance: NAD Heart: RRR, no gallops Respiratory: no wheezes, no ronchi Gastrointestinal: non-tender, normal bowel sounds, no guarding, no rigidity Extremities: no cyanosis Hosp A/P - Plan DVT proph w/SCDs Upper GI bleeding secondary to peptic ulcer disease Acute blood loss anemia s/p 3 units PRBC CKD stage IV Benign prostatic hypertrophy Obstructive uropathy with chronic indwelling Gomez catheter Hypertension Chronic metabolic acidosis Hyponatremia Anemia of chronic disease Recent hospitalization for GI bleeding Plan: 06/10 Monitor HH. Cont GI soft diet. Recheck HH in AM. DC home in AM if HH stable/ok with GI. Cont other meds. No NSAIDS - counselled patient 06/09 Patient received another unit of PRBC today. We will continue to monitor H&H. Advance diet per GI. Monitor vital signs closely. Continue PPIs. DC home in 24 to 48 hours if stable. DC IVF 06/08 Continue IV Protonix. Patient underwent EGD today that showed visible vessel that was cauterized monitor H&H continue IV fluids. Check orthostatic vitals in a.m. Gastroenterology and and nephrology input appreciated. Recheck labs in a.m. transfuse if hemoglobin less than 7. Patient was counseled to avoid NSAID's.
[2020-06-11 06:09] LABS: #Eosinphils 0.2 thou/uL (0.0-0.7); #Lymphocytes 1.8 thou/uL (1.20-3.40); #Monocytes 0.6 thou/uL (0.11-0.59); #Neutrophils 4.1 thou/uL (1.40-6.50); %Basophils 0.2 % (0.0-1.0); %Eosinophils 3.1 % (0.0-10.0); %Lymphocytes 27.1 % (21.0-51.0); %Monocytes 8.9 % (0.0-10.0); %Neutrophils 60.7 % (42.0-75.0); Hemoglobin 8.5 g/dL (14.0-18.0); Mean Corpuscular HGB CONC 33.2 g/dL (32.0-36.0); Mean Corpuscular Hemoglobin 30.8 pg (27.0-31.0); Mean Corpuscular Volume 92.7 fL (78.0-98.0); Mean Platelet Volume 7.1 fL (7.4-10.4); Platelet Count 238 thou/uL (130-400); RBC Distribution Width 13.6 % (11.5-14.5); Red Blood Cell (RBC) Count 2.75 mill/uL (4.70-6.10); White Blood Cell (WBC) Count 6.8 thou/uL (4.8-10.8)
[2020-06-11 06:29] LABS: Anion Gap 10 mmol/L (10-20); BUN (Urea Nitrogen) 28 mg/dL (8.4-25.7); Calc. Creatinine Clearance 31 mL/min (70-130); Calcium 7.9 mg/dL (7.8-10.44); Carbon Dioxide 22 mmol/L (23-31); Chloride 108 mmol/L (98-107); Estimated GFR-MDRD 26; Glucose 97 mg/dL (80-115); Potassium 3.8 mmol/L (3.5-5.1); Sodium 136 mmol/L (136-145)
[2020-06-11 07:21] VITALS: BP 126/83; TEMP 97.6
[2020-06-11] MEDS: Pantoprazole 40 MG VIAL IVP SCH (07:52)
--- NOTE | 2020-06-11 15:23 | DIS ---
DATE OF ADMISSION: 06/07/2020 DATE OF DISCHARGE: 06/11/2020 DISCHARGE DISPOSITION: Home. FOLLOWUP: 1. Follow up with primary care physician at [facility] in 1 week. 2. Follow up with Nephrology and Gastroenterology as scheduled. HISTORY: The patient was evaluated on the day of discharge. Denies any new complaints. No chest pain, shortness of breath, or palpitations reported. The patient denies any nausea or vomiting. BRIEF HOSPITAL COURSE: The patient is a 64-year-old male, who was discharged from this facility last week after a GI bleed due to peptic ulcer disease, status post cauterization, presented to the hospital on June 07, 2020 with lightheadedness along with melena. He received a total of 3 units of PRBC this admission. He had a repeat EGD that showed duodenal ulcer, requiring cauterization and epinephrine injection. His biopsy from recent EGD was consistent with Helicobacter pylori chronic active gastritis. His H and H have stabilized. Please note, his hemoglobin on admission was 5.5. He appears stable for discharge. FINAL DIAGNOSES: 1. Upper gastrointestinal bleeding secondary to peptic ulcer disease. 2. Acute blood loss anemia. 3. Chronic kidney disease, stage 4. 4. Benign prostatic hypertrophy. 5. Obstructive uropathy with chronic indwelling Gomez catheter. 6. Hypertension. 7. Chronic metabolic acidosis. 8. Hyponatremia. 9. Anemia of chronic disease. 10. Recent hospitalization for GI bleeding. The patient was advised to follow up with Gastroenterology for Helicobacter pylori treatment. The patient understands the above plan of care. I discussed the plan of care with Dr. Panda. Job ID: [id number]
== END 2020-06-11 09:27 | disposition home or self-care (01) | DRG 378 ==
LOC: ERS 17:14 → T4-A 20:19
PROVIDERS: ADMIT Internal Medicine; ATTEND Internal Medicine
PROC: 30233N1 Transfusion of Nonautologous Red Blood Cells into Peripheral Vein, Percutaneous Approach (ICD-10-PCS; 2020-06-07)
PROC: 0W3P8ZZ Control Bleeding in Gastrointestinal Tract, Via Natural or Artificial Opening Endoscopic (ICD-10-PCS; principal; 2020-06-08)
DX: K26.4 Chronic or unspecified duodenal ulcer with hemorrhage (principal); N18.4 Chronic kidney disease, stage 4 (severe); D62 Acute posthemorrhagic anemia; E87.2 Acidosis; E87.1 Hypo-osmolality and hyponatremia; N40.0 Benign prostatic hyperplasia without lower urinary tract symptoms; N13.9 Obstructive and reflux uropathy, unspecified; D63.1 Anemia in chronic kidney disease; I12.9 Hypertensive chronic kidney disease with stage 1 through stage 4 chronic kidney disease, or unspecified chronic kidney disease; Z79.899 Other long term (current) drug therapy
CPT/HCPCS: 36415; 36430; 80048; 80053; 82274; 82728; 83540; 83550; 85025; 85610; 85730; 86850; 86900; 86901; 93005; 96374; C9113; J2704; J3490; P9016

== ENCOUNTER 2020-09-15 21:42 | Emergency (ER) | payer SELFPAY ==
[2020-09-15] MEDS ORDERED: Ondansetron ODT 4 MG TAB ONE (23:18)
== END 2020-09-15 23:13 | disposition home or self-care (01) ==
LOC: ERS 21:42
DX: I10 Essential (primary) hypertension (principal)
CPT/HCPCS: 99281; Q0162

== ENCOUNTER 2020-09-22 18:36 | Emergency (ER) | payer SELFPAY ==
[2020-09-22 19:18] LABS: #Eosinphils 0.1 thou/uL (0.0-0.7); #Lymphocytes 1.7 thou/uL (1.20-3.40); #Monocytes 0.6 thou/uL (0.11-0.59); #Neutrophils 5.3 thou/uL (1.40-6.50); %Basophils 0.6 % (0.0-1.0); %Eosinophils 0.7 % (0.0-10.0); %Lymphocytes 21.4 % (21.0-51.0); %Neutrophils 69.3 % (42.0-75.0); Hemoglobin 6.6 g/dL (14.0-18.0); Mean Corpuscular HGB CONC 31.1 g/dL (32.0-36.0); Mean Corpuscular Hemoglobin 24.5 pg (27.0-31.0); Mean Corpuscular Volume 78.8 fL (78.0-98.0); Mean Platelet Volume 6.8 fL (7.4-10.4); Platelet Count 345 thou/uL (130-400); RBC Distribution Width 17.5 % (11.5-14.5); Red Blood Cell (RBC) Count 2.67 mill/uL (4.70-6.10); White Blood Cell (WBC) Count 7.7 thou/uL (4.8-10.8)
[2020-09-22 19:43] LABS: ALT (SGPT) Less than 7 U/L (8-55); AST (SGOT) 11 U/L (5-34); Albumin 3.9 g/dL (3.4-4.8); Alkaline Phosphatase 79 U/L (40-110); Anion Gap 16 mmol/L (10-20); BUN (Urea Nitrogen) 33 mg/dL (8.4-25.7); Bilirubin, Total 0.6 mg/dL (0.2-1.2); Calc. Creatinine Clearance 0 mL/min (70-130); Calcium 8.5 mg/dL (7.8-10.44); Carbon Dioxide 20 mmol/L (23-31); Chloride 102 mmol/L (98-107); Estimated GFR-MDRD 22; Globulin 3.4 g/dL (2.4-3.5); Glucose 109 mg/dL (80-115); Protein, Total 7.3 g/dL (5.8-8.1); Sodium 134 mmol/L (136-145)
[2020-09-22 20:12] LABS: Prothrombin Time 13.6 sec (12.0-14.7)
[2020-09-22] MEDS ORDERED: Pantoprazole 40 MG VIAL ONE (20:30)
== END 2020-09-22 23:45 | disposition home or self-care (01) ==
LOC: ERS 18:36
DX: D50.0 Iron deficiency anemia secondary to blood loss (chronic) (principal); I10 Essential (primary) hypertension; Z79.899 Other long term (current) drug therapy
CPT/HCPCS: 36415; 36430; 80053; 85025; 85610; 86850; 86900; 86901; 96374; C9113; P9016

== ENCOUNTER 2021-01-04 16:08 | Emergency (ER) | payer SELFPAY ==
[2021-01-04 17:30] LABS: #Basophils 0.1 thou/uL (0.0-0.2); #Eosinphils 0.2 thou/uL (0.0-0.7); #Lymphocytes 1.8 thou/uL (1.20-3.40); #Monocytes 0.6 thou/uL (0.11-0.59); #Neutrophils 3.4 thou/uL (1.40-6.50); %Eosinophils 3.1 % (0.0-10.0); %Lymphocytes 30.1 % (21.0-51.0); %Monocytes 9.2 % (0.0-10.0); %Neutrophils 56.7 % (42.0-75.0); Mean Corpuscular HGB CONC 30.6 g/dL (32.0-36.0); Mean Corpuscular Hemoglobin 21.4 pg (27.0-31.0); Mean Corpuscular Volume 69.9 fL (78.0-98.0); Mean Platelet Volume 8.5 fL (7.4-10.4); Platelet Count 298 thou/uL (130-400); RBC Distribution Width 17.3 % (11.5-14.5); Red Blood Cell (RBC) Count 4.19 mill/uL (4.70-6.10); White Blood Cell (WBC) Count 6.1 thou/uL (4.8-10.8)
[2021-01-04 17:53] LABS: ALT (SGPT) 10 U/L (8-55); AST (SGOT) 16 U/L (5-34); Albumin 4.1 g/dL (3.4-4.8); Alkaline Phosphatase 91 U/L (40-110); Anion Gap 14 mmol/L (10-20); BUN (Urea Nitrogen) 29 mg/dL (8.4-25.7); Bilirubin, Total 0.7 mg/dL (0.2-1.2); Calc. Creatinine Clearance 0 mL/min (70-130); Calcium 8.9 mg/dL (7.8-10.44); Carbon Dioxide 21 mmol/L (23-31); Chloride 105 mmol/L (98-107); Globulin 3.7 g/dL (2.4-3.5); Glucose 86 mg/dL (80-115); Lipase 41 U/L (8-78); Potassium 4.1 mmol/L (3.5-5.1); Protein, Total 7.8 g/dL (5.8-8.1); Sodium 136 mmol/L (136-145)
[2021-01-04 17:57] LABS: Anisocytosis SLIGHT = 6-15 cells (100X) (0-5/hpf); Hypochromia SLIGHT = 6-15 cells (100X) (0-5/hpf); MDiff Complete? YES; Microcytosis MODERATE=15-30 cells (100X) (0-5/hpf); Ovalocytes SLIGHT = 2-5 cells (100X) (0-1/hpf); Platelet Morphology Comment Appears Adequate; Polychromasia SLIGHT = 2-3 cells (100X) (0-2/hpf); Target Cells SLIGHT = 2-5 cells (100X) (0-1/hpf); Tear Drops SLIGHT = 2-5 cells (100X) (0-1/hpf)
== END 2021-01-04 20:10 | disposition home or self-care (01) ==
LOC: ERS 16:08
DX: Z76.0 Encounter for issue of repeat prescription (principal); I10 Essential (primary) hypertension; D64.9 Anemia, unspecified; Z79.899 Other long term (current) drug therapy
CPT/HCPCS: 36415; 80053; 83690; 85025; 99282

== ENCOUNTER 2021-02-08 13:55 | Emergency (ER) | payer SELFPAY ==
[2021-02-08 15:19] LABS: #Eosinphils 0.1 thou/uL (0.0-0.7); #Lymphocytes 1.9 thou/uL (1.20-3.40); #Monocytes 0.4 thou/uL (0.11-0.59); #Neutrophils 3.4 thou/uL (1.40-6.50); %Basophils 0.8 % (0.0-1.0); %Eosinophils 2.2 % (0.0-10.0); %Lymphocytes 31.8 % (21.0-51.0); %Monocytes 7.5 % (0.0-10.0); %Neutrophils 57.7 % (42.0-75.0); Hemoglobin 8.4 g/dL (14.0-18.0); Mean Corpuscular HGB CONC 30.9 g/dL (32.0-36.0); Mean Corpuscular Hemoglobin 22.5 pg (27.0-31.0); Mean Corpuscular Volume 72.8 fL (78.0-98.0); Mean Platelet Volume 9.3 fL (7.4-10.4); Platelet Count 278 thou/uL (130-400); Red Blood Cell (RBC) Count 3.74 mill/uL (4.70-6.10); White Blood Cell (WBC) Count 5.9 thou/uL (4.8-10.8)
[2021-02-08 15:36] LABS: ALT (SGPT) Less than 7 U/L (8-55); AST (SGOT) 12 U/L (5-34); Albumin 3.9 g/dL (3.4-4.8); Alkaline Phosphatase 86 U/L (40-110); Anion Gap 14 mmol/L (10-20); BUN (Urea Nitrogen) 41 mg/dL (8.4-25.7); Bilirubin, Total 0.3 mg/dL (0.2-1.2); CK (CPK) 188 U/L (30-200); Calc. Creatinine Clearance 0 mL/min (70-130); Calcium 8.8 mg/dL (7.8-10.44); Carbon Dioxide 22 mmol/L (23-31); Chloride 104 mmol/L (98-107); Globulin 3.4 g/dL (2.4-3.5); Glucose 101 mg/dL (80-115); Lipase 65 U/L (8-78); Potassium 4.6 mmol/L (3.5-5.1); Protein, Total 7.3 g/dL (5.8-8.1); Sodium 135 mmol/L (136-145)
== END 2021-02-08 16:53 | disposition home or self-care (01) ==
LOC: ERS 13:55
DX: R55 Syncope and collapse (principal); M62.830 Muscle spasm of back; D64.9 Anemia, unspecified; I12.9 Hypertensive chronic kidney disease with stage 1 through stage 4 chronic kidney disease, or unspecified chronic kidney disease; N18.9 Chronic kidney disease, unspecified; Z79.899 Other long term (current) drug therapy
CPT/HCPCS: 36415; 71045; 80053; 82550; 83690; 84484; 85025; 93005

== ENCOUNTER 2021-02-09 14:38 | Emergency (ER) | payer SELFPAY ==
[2021-02-09 15:17] LABS: #Eosinphils 0.1 thou/uL (0.0-0.7); #Lymphocytes 1.7 thou/uL (1.20-3.40); #Monocytes 0.6 thou/uL (0.11-0.59); #Neutrophils 6.3 thou/uL (1.40-6.50); %Basophils 0.4 % (0.0-1.0); %Eosinophils 0.7 % (0.0-10.0); %Lymphocytes 19.6 % (21.0-51.0); %Monocytes 7.1 % (0.0-10.0); %Neutrophils 72.2 % (42.0-75.0); Hemoglobin 7.4 g/dL (14.0-18.0); Mean Corpuscular HGB CONC 30.9 g/dL (32.0-36.0); Mean Corpuscular Hemoglobin 22.5 pg (27.0-31.0); Mean Corpuscular Volume 72.7 fL (78.0-98.0); Platelet Count 271 thou/uL (130-400); RBC Distribution Width 19.4 % (11.5-14.5); Red Blood Cell (RBC) Count 3.28 mill/uL (4.70-6.10); White Blood Cell (WBC) Count 8.7 thou/uL (4.8-10.8)
[2021-02-09 15:40] LABS: ALT (SGPT) Less than 7 U/L (8-55); AST (SGOT) 10 U/L (5-34); Albumin 3.8 g/dL (3.4-4.8); Alkaline Phosphatase 81 U/L (40-110); Anion Gap 15 mmol/L (10-20); BUN (Urea Nitrogen) 57 mg/dL (8.4-25.7); Bilirubin, Total 0.5 mg/dL (0.2-1.2); Calc. Creatinine Clearance 0 mL/min (70-130); Calcium 8.7 mg/dL (7.8-10.44); Carbon Dioxide 19 mmol/L (23-31); Chloride 106 mmol/L (98-107); Globulin 2.9 g/dL (2.4-3.5); Glucose 114 mg/dL (80-115); Lipase 37 U/L (8-78); Potassium 4.7 mmol/L (3.5-5.1); Protein, Total 6.7 g/dL (5.8-8.1); Sodium 135 mmol/L (136-145)
== END 2021-02-09 19:26 | disposition home or self-care (01) ==
LOC: ERS 14:38
DX: D64.9 Anemia, unspecified (principal); I10 Essential (primary) hypertension; Z79.899 Other long term (current) drug therapy
CPT/HCPCS: 36415; 36430; 80053; 83605; 83690; 85025; 86850; 86900; 86901; 94760; P9016

== ENCOUNTER 2021-04-05 17:43 | Emergency (ER) | payer MEDICARE, SELFPAY ==
[2021-04-05 18:20] LABS: #Eosinphils 0.2 thou/uL (0.0-0.7); #Lymphocytes 1.6 thou/uL (1.20-3.40); #Monocytes 0.5 thou/uL (0.11-0.59); #Neutrophils 4.9 thou/uL (1.40-6.50); %Basophils 0.4 % (0.0-1.0); %Eosinophils 2.2 % (0.0-10.0); %Lymphocytes 21.8 % (21.0-51.0); %Monocytes 7.1 % (0.0-10.0); %Neutrophils 68.5 % (42.0-75.0); Hemoglobin 6.3 g/dL (14.0-18.0); Mean Corpuscular HGB CONC 31.8 g/dL (32.0-36.0); Mean Corpuscular Hemoglobin 22.9 pg (27.0-31.0); Mean Platelet Volume 7.6 fL (7.4-10.4); Platelet Count 282 thou/uL (130-400); RBC Distribution Width 17.8 % (11.5-14.5); Red Blood Cell (RBC) Count 2.74 mill/uL (4.70-6.10); White Blood Cell (WBC) Count 7.1 thou/uL (4.8-10.8)
[2021-04-05 18:25] LABS: PTT 25.1 sec (22.9-36.1); Prothrombin Time 13.8 sec (12.0-14.7)
[2021-04-05 18:37] LABS: ALT (SGPT) Less than 7 U/L (8-55); AST (SGOT) 11 U/L (5-34); Albumin 3.8 g/dL (3.4-4.8); Alkaline Phosphatase 78 U/L (40-110); Anion Gap 14 mmol/L (10-20); BUN (Urea Nitrogen) 33 mg/dL (8.4-25.7); Bilirubin, Total 0.5 mg/dL (0.2-1.2); Calc. Creatinine Clearance 0 mL/min (70-130); Calcium 8.9 mg/dL (7.8-10.44); Carbon Dioxide 20 mmol/L (23-31); Chloride 103 mmol/L (98-107); Globulin 3.4 g/dL (2.4-3.5); Glucose 115 mg/dL (80-115); Potassium 3.9 mmol/L (3.5-5.1); Protein, Total 7.2 g/dL (5.8-8.1); Sodium 133 mmol/L (136-145)
== END 2021-04-05 22:50 | disposition home or self-care (01) ==
LOC: ERS 17:43
DX: D64.9 Anemia, unspecified (principal); I10 Essential (primary) hypertension; Z79.899 Other long term (current) drug therapy
CPT/HCPCS: 36430; 71045; 80053; 84484; 85025; 85610; 85730; 86850; 86900; 86901; 86920; 93005; P9016

== ENCOUNTER 2021-07-10 13:07 | Emergency (ER) | payer MEDICARE ==
[2021-07-10 13:32] LABS: #Eosinphils 0.1 thou/uL (0.0-0.7); #Lymphocytes 1.8 thou/uL (1.20-3.40); #Monocytes 0.4 thou/uL (0.11-0.59); %Basophils 0.6 % (0.0-1.0); %Lymphocytes 28.2 % (21.0-51.0); %Monocytes 6.7 % (0.0-10.0); %Neutrophils 62.5 % (42.0-75.0); Hemoglobin 8.2 g/dL (14.0-18.0); Mean Corpuscular HGB CONC 31.2 g/dL (32.0-36.0); Mean Corpuscular Hemoglobin 22.4 pg (27.0-31.0); Mean Corpuscular Volume 71.8 fL (78.0-98.0); Platelet Count 330 thou/uL (130-400); RBC Distribution Width 18.3 % (11.5-14.5); Red Blood Cell (RBC) Count 3.66 mill/uL (4.70-6.10); White Blood Cell (WBC) Count 6.3 thou/uL (4.8-10.8)
[2021-07-10 13:45] LABS: Anisocytosis SLIGHT = 6-15 cells (100X) (0-5/hpf); Hypochromia SLIGHT = 6-15 cells (100X) (0-5/hpf); MDiff Complete? YES; Microcytosis SLIGHT = 6-15 cells (100X) (0-5/hpf); Ovalocytes SLIGHT = 2-5 cells (100X) (0-1/hpf); Platelet Morphology Comment Appears Adequate; Polychromasia SLIGHT = 2-3 cells (100X) (0-2/hpf)
[2021-07-10 13:55] LABS: ALT (SGPT) Less than 7 U/L (8-55); AST (SGOT) 10 U/L (5-34); Alkaline Phosphatase 82 U/L (40-110); Anion Gap 15 mmol/L (10-20); BUN (Urea Nitrogen) 24 mg/dL (8.4-25.7); Bilirubin, Total 0.6 mg/dL (0.2-1.2); Calc. Creatinine Clearance 0 mL/min (70-130); Calcium 9.1 mg/dL (7.8-10.44); Carbon Dioxide 19 mmol/L (23-31); Chloride 103 mmol/L (98-107); Globulin 3.5 g/dL (2.4-3.5); Glucose 138 mg/dL (80-115); Lipase 38 U/L (8-78); Potassium 4.1 mmol/L (3.5-5.1); Protein, Total 7.5 g/dL (5.8-8.1); Sodium 133 mmol/L (136-145)
[2021-07-10] MEDS ORDERED: Famotidine/PF 20 mg/2ml Vial ONE (14:22)
[2021-07-10] MEDS ORDERED: Pantoprazole 80 MG in Sodium Chloride 0.9% 100 ML IVPB SCH (15:00)
[2021-07-10 16:36] LABS: Bacteria/HPF 4+ HPF (None Seen); Bilirubin Negative (Negative); Blood, Urine Negative (Negative); Clarity Extra Turbid (Clear); Glucose, Urine (Dipstick) Normal (Negative); Ketone, Urine Negative (Negative); Leukocyte 500 Leu/uL (Negative); Nitrite Negative (Negative); Protein, Urine (Dipstick) 50 mg/dL (Neg-Trace); RBC/HPF 0-3 HPF (0-3); Specific Gravity, Urine 1.016 (1.002-1.036); Squamous Epithelial None Seen HPF (0-3); Urobilinogen 6 mg/dL (Less than 2)
[2021-07-10 17:43] LABS: Hemoglobin 7.6 g/dL (14.0-18.0)
== END 2021-07-10 18:23 | disposition home or self-care (01) ==
LOC: ERS 13:07
DX: K92.0 Hematemesis (principal); K92.1 Melena; D64.9 Anemia, unspecified; Z79.899 Other long term (current) drug therapy
CPT/HCPCS: 36415; 71045; 74176; 80053; 81003; 81015; 82274; 83690; 84484; 85025; 87086; 93005; 96365; 96366; 96375; C9113; J3490; S0028

== ENCOUNTER 2021-09-16 13:52 | Outpatient (CLI) | payer MEDICARE ==
[2021-09-16 14:57] LABS: Hemoglobin 7.7 g/dL (13.5-17.5); Mean Corpuscular Hemoglobin 19.4 pg (27.0-33.0); Mean Corpuscular Volume 69.3 fl (81.2-95.1); Mean Platelet Volume 8.6 fl (7.4-10.4); Platelet Count 308 10x3/uL (150-450); RBC Distribution Width 17.8 % (11.5-14.5); Red Blood Cell (RBC) Count 3.97 10x6/uL (4.32-5.72); White Blood Cell (WBC) Count 5.9 10x3/uL (3.5-10.5)
[2021-09-16 15:08] LABS: PTT 23.4 sec (22.0-33.0); Prothrombin Time 10.7 sec (9.5-12.1)
[2021-09-16 15:11] LABS: Anion Gap 14 mmol/L (10-20); BUN (Urea Nitrogen) 30 mg/dL (8.4-25.7); Calc. Creatinine Clearance 0 mL/min (70-130); Calcium 8.5 mg/dL (7.8-10.44); Carbon Dioxide 20 mmol/L (23-31); Chloride 105 mmol/L (98-107); Glucose 109 mg/dL (80-115); Potassium 4.6 mmol/L (3.5-5.1); Sodium 134 mmol/L (136-145)
[2021-09-17 11:54] LABS: SARS-CoV-2 PCR by NAA Not Detected (NotDetected)
== END 2021-09-16 13:53 | disposition home or self-care (01) ==
LOC: LABBT 13:52
PROVIDERS: ATTEND Urology
DX: Z01.812 Encounter for preprocedural laboratory examination (principal); R33.9 Retention of urine, unspecified; Z20.822 Contact with and (suspected) exposure to COVID-19
CPT/HCPCS: 80048; 85027; 85610; 85730; U0003; U0005

== ENCOUNTER 2021-09-21 09:43 | Inpatient (IN) | payer MEDICARE ==
[2021-09-20 10:35] VITALS: BMI 29.0
[2021-09-21] MEDS ORDERED: cefTRIAXone\\ROCEPHIN 2 GM VIAL ONE (10:18)
[2021-09-21] MEDS ORDERED: Vancomycin 1 GM/200 ML BAG ONE (10:18)
[2021-09-21] MEDS ORDERED: Sodium Chloride 0.9% 100 ML ONE ×2 (10:19→10:20)
[2021-09-21] MEDS ORDERED: Fentanyl 100 MCG/2 ML VIAL ONE ×2 (11:38→13:49)
[2021-09-21] MEDS ORDERED: PROPOFOL 200 MG/20 ML VIAL ONE (11:41)
[2021-09-21] MEDS ORDERED: Lidocaine 1% PF 5 ML VIAL ONE (11:41)
[2021-09-21] MEDS ORDERED: ePHEDrine 50 MG/ML VIAL ONE (11:41)
[2021-09-21] MEDS ORDERED: Ondansetron PF 4 MG/2 ML Vial ONE (11:41)
[2021-09-21] MEDS ORDERED: Meperidine HCl/PF 25 MG/ML VIAL SLOW IVP PRN (12:18)
[2021-09-21] MEDS ORDERED: Promethazine HCl 25 MG/ML VIAL IM PRN (12:18)
[2021-09-21] MEDS ORDERED: Ondansetron HCl/PF 4 MG/2 ML Vial IVP PRN (12:18)
[2021-09-21] MEDS ORDERED: Promethazine HCl 25 MG/ML VIAL IVPB PRN (12:18)
[2021-09-21] MEDS ORDERED: Acetaminophen 500 MG TAB PO PRN (13:00)
[2021-09-21] MEDS ORDERED: Docusate 100 MG CAP PO PRN (13:00)
[2021-09-21] MEDS ORDERED: B & O PR PRN (13:04)
[2021-09-21] MEDS: D5 1/2 NS w/20 mEq KCL 1,000 ML IV SCH (18:54)
[2021-09-21] MEDS: Amlodipine 5 MG TAB PO SCH (20:38)
[2021-09-21] MEDS: Tamsulosin HCl 0.4 MG CAP PO SCH (20:38)
[2021-09-21] MEDS ORDERED: HYDROcodone/Acetaminophen 10/325 mg Tablet PO PRN (20:38)
[2021-09-21] MEDS ORDERED: Bisacodyl 5 MG TAB PO PRN (20:38)
[2021-09-21] MEDS ORDERED: Ondansetron PF 4 MG/2 ML Vial IVP PRN (20:38)
[2021-09-21] MEDS ORDERED: Senokot S 8.6-50 MG TAB PO PRN (20:38)
[2021-09-21] MEDS ORDERED: HYDROcodone/Acetaminophen 5/325 mg Tablet PO PRN (20:38)
[2021-09-21] MEDS: Calcitriol 0.25 MCG CAP PO SCH (20:38)
[2021-09-21] MEDS ORDERED: Morphine 4 MG/ML VIAL SLOW IVP PRN (21:05)
[2021-09-21] MEDS ORDERED: hydrALAZINE 20 MG/ML VIAL SLOW IVP PRN (21:14)
[2021-09-21] MEDS: Famotidine/PF 20 mg/2ml Vial SLOW IVP SCH (22:50)
[2021-09-22] MEDS: D5 1/2 NS w/20 mEq KCL 1,000 ML IV SCH ×2 (03:58→18:24)
[2021-09-22 06:12] LABS: #Eosinphils 0.3 thou/uL (0.0-0.7); #Lymphocytes 1.3 thou/uL (1.20-3.40); #Monocytes 0.5 thou/uL (0.11-0.59); #Neutrophils 3.9 thou/uL (1.40-6.50); %Basophils 0.1 % (0.0-1.0); %Eosinophils 4.3 % (0.0-10.0); %Lymphocytes 21.9 % (21.0-51.0); %Monocytes 7.7 % (0.0-10.0); %Neutrophils 65.9 % (42.0-75.0); Hemoglobin 7.7 g/dL (14.0-18.0); Mean Corpuscular HGB CONC 30.6 g/dL (32.0-36.0); Mean Corpuscular Hemoglobin 21.3 pg (27.0-31.0); Mean Corpuscular Volume 69.6 fL (78.0-98.0); Mean Platelet Volume 8.2 fL (7.4-10.4); Platelet Count 259 thou/uL (130-400); RBC Distribution Width 16.7 % (11.5-14.5); Red Blood Cell (RBC) Count 3.63 mill/uL (4.70-6.10); White Blood Cell (WBC) Count 5.9 thou/uL (4.8-10.8)
[2021-09-22 06:36] LABS: Anion Gap 12 mmol/L (10-20); BUN (Urea Nitrogen) 20 mg/dL (8.4-25.7); Calc. Creatinine Clearance 36 mL/min (70-130); Calcium 8.6 mg/dL (7.8-10.44); Carbon Dioxide 21 mmol/L (23-31); Chloride 107 mmol/L (98-107); Glucose 102 mg/dL (80-115); Potassium 4.6 mmol/L (3.5-5.1); Sodium 135 mmol/L (136-145)
[2021-09-22] MEDS ORDERED: cefTRIAXone\\ROCEPHIN 1 GM in Sodium Chloride 0.9% 100 ML IVPB SCH (10:00)
[2021-09-22] MEDS: Famotidine/PF 20 mg/2ml Vial SLOW IVP SCH (20:47)
[2021-09-22] MEDS: Amlodipine 5 MG TAB PO SCH (20:47)
[2021-09-22] MEDS: Calcitriol 0.25 MCG CAP PO SCH (20:47)
[2021-09-22] MEDS: Tamsulosin HCl 0.4 MG CAP PO SCH (20:47)
[2021-09-23 05:58] LABS: Hemoglobin 8.1 g/dL (14.0-18.0); Platelet Count 272 thou/uL (130-400)
[2021-09-23] MEDS: D5 1/2 NS w/20 mEq KCL 1,000 ML IV SCH (06:05)
[2021-09-23 06:17] LABS: Anion Gap 13 mmol/L (10-20); BUN (Urea Nitrogen) 20 mg/dL (8.4-25.7); Calc. Creatinine Clearance 38 mL/min (70-130); Calcium 8.8 mg/dL (7.8-10.44); Carbon Dioxide 16 mmol/L (23-31); Chloride 107 mmol/L (98-107); Glucose 96 mg/dL (80-115); Potassium 4.2 mmol/L (3.5-5.1); Sodium 132 mmol/L (136-145)
[2021-09-23 11:49] VITALS: BP 170/83; TEMP 97.8
== END 2021-09-23 13:28 | disposition home or self-care (01) | DRG 713 ==
LOC: SDC 09:43 → SJJU 13:00
PROVIDERS: ADMIT Urology; ATTEND Urology
PROC: 0VB08ZZ Excision of Prostate, Via Natural or Artificial Opening Endoscopic (ICD-10-PCS; principal; 2021-09-21)
DX: N40.1 Benign prostatic hyperplasia with lower urinary tract symptoms (principal); N25.81 Secondary hyperparathyroidism of renal origin; N13.8 Other obstructive and reflux uropathy; R33.8 Other retention of urine; N18.9 Chronic kidney disease, unspecified; I12.9 Hypertensive chronic kidney disease with stage 1 through stage 4 chronic kidney disease, or unspecified chronic kidney disease; D63.1 Anemia in chronic kidney disease; Z79.899 Other long term (current) drug therapy
CPT/HCPCS: 36415; 80048; 85014; 85018; 85025; 85049; 86850; 86900; 86901; 88305; 88341; 88342; J0696; J2405; J2704; J3010; J3370; J3480; J3490; S0028

== ENCOUNTER 2021-10-15 07:49 | Outpatient (CLI) | payer MEDICARE | END 2021-10-15 07:50 | disposition home or self-care (01) | LOC: NM 07:49 | PROVIDERS: ATTEND Urology | DX: C61 Malignant neoplasm of prostate (principal); N32.89 Other specified disorders of bladder | CPT/HCPCS: 78306; A9503 ==

== ENCOUNTER 2022-05-22 17:21 | Emergency (ER) | payer MEDICARE ==
[2022-05-22 17:49] LABS: #Basophils 0.1 thou/uL (0.0-0.2); #Eosinphils 0.2 thou/uL (0.0-0.7); #Lymphocytes 2.1 thou/uL (1.20-3.40); #Monocytes 0.8 thou/uL (0.11-0.59); #Neutrophils 3.1 thou/uL (1.40-6.50); %Basophils 0.8 % (0.0-1.0); %Eosinophils 2.7 % (0.0-10.0); %Lymphocytes 34.3 % (21.0-51.0); %Monocytes 12.5 % (0.0-10.0); %Neutrophils 49.7 % (42.0-75.0); Hemoglobin 11.2 g/dL (14.0-18.0); Mean Corpuscular HGB CONC 30.9 g/dL (32.0-36.0); Mean Corpuscular Hemoglobin 26.1 pg (27.0-31.0); Mean Corpuscular Volume 84.4 fL (78.0-98.0); Mean Platelet Volume 7.5 fL (7.4-10.4); Platelet Count 246 thou/uL (130-400); RBC Distribution Width 15.5 % (11.5-14.5); White Blood Cell (WBC) Count 6.2 thou/uL (4.8-10.8)
[2022-05-22 18:11] LABS: ALT (SGPT) 8 U/L (8-55); AST (SGOT) 13 U/L (5-34); Alkaline Phosphatase 108 U/L (40-110); Anion Gap 14 mmol/L (10-20); BUN (Urea Nitrogen) 16 mg/dL (8.4-25.7); Bilirubin, Total 0.9 mg/dL (0.2-1.2); Calc. Creatinine Clearance 0 mL/min (70-130); Calcium 8.7 mg/dL (7.8-10.44); Carbon Dioxide 22 mmol/L (23-31); Chloride 103 mmol/L (98-107); Estimated GFR 28; Globulin 3.7 g/dL (2.4-3.5); Glucose 94 mg/dL (80-115); Lipase 43 U/L (8-78); Potassium 4.3 mmol/L (3.5-5.1); Protein, Total 7.7 g/dL (5.8-8.1); Sodium 135 mmol/L (136-145)
[2022-05-22] MEDS ORDERED: Mag-Al 1200 mg/1200 mg/30 ML UDCUP ONE (20:26)
== END 2022-05-22 21:03 | disposition home or self-care (01) ==
LOC: ERS 17:21
DX: R10.816 Epigastric abdominal tenderness (principal); R10.9 Unspecified abdominal pain; I10 Essential (primary) hypertension; Z79.899 Other long term (current) drug therapy
CPT/HCPCS: 36415; 80053; 83690; 85025; 99284

== ENCOUNTER 2022-05-24 20:24 | Observation (INO) | payer MEDICARE ==
[2022-05-24] MEDS ORDERED: Aspirin Chewable 81 MG TAB ONE (21:39)
[2022-05-24] MEDS ORDERED: Diazepam 5 MG TAB ONE (22:20)
[2022-05-24 22:21] LABS: #Eosinphils 0.1 thou/uL (0.0-0.7); #Lymphocytes 2.5 thou/uL (1.20-3.40); #Monocytes 0.6 thou/uL (0.11-0.59); %Basophils 0.6 % (0.0-1.0); %Eosinophils 1.5 % (0.0-10.0); %Lymphocytes 39.7 % (21.0-51.0); %Monocytes 9.7 % (0.0-10.0); %Neutrophils 48.4 % (42.0-75.0); Hemoglobin 11.7 g/dL (14.0-18.0); Mean Corpuscular Hemoglobin 25.5 pg (27.0-31.0); Mean Corpuscular Volume 82.2 fL (78.0-98.0); Mean Platelet Volume 7.7 fL (7.4-10.4); Platelet Count 271 thou/uL (130-400); RBC Distribution Width 15.8 % (11.5-14.5); Red Blood Cell (RBC) Count 4.61 mill/uL (4.70-6.10); White Blood Cell (WBC) Count 6.2 thou/uL (4.8-10.8)
[2022-05-24 22:34] LABS: ALT (SGPT) 7 U/L (8-55); AST (SGOT) 15 U/L (5-34); Albumin 4.5 g/dL (3.4-4.8); Alkaline Phosphatase 116 U/L (40-110); Anion Gap 17 mmol/L (10-20); BUN (Urea Nitrogen) 22 mg/dL (8.4-25.7); Bilirubin, Total 0.8 mg/dL (0.2-1.2); Calc. Creatinine Clearance 0 mL/min (70-130); Calcium 9.7 mg/dL (7.8-10.44); Carbon Dioxide 23 mmol/L (23-31); Chloride 100 mmol/L (98-107); Estimated GFR 17; Globulin 3.9 g/dL (2.4-3.5); Glucose 96 mg/dL (80-115); Lipase 45 U/L (8-78); Potassium 4.2 mmol/L (3.5-5.1); Protein, Total 8.4 g/dL (5.8-8.1); Sodium 136 mmol/L (136-145)
[2022-05-25] MEDS ORDERED: Nitroglycerin 0.4 MG TAB (25 Tab Bottle) SL PRN (00:32)
[2022-05-25] MEDS ORDERED: Ondansetron ODT 4 MG TAB PO PRN (00:32)
[2022-05-25] MEDS ORDERED: Ondansetron PF 4 MG/2 ML Vial IVP PRN (00:32)
[2022-05-25] MEDS ORDERED: Acetaminophen 325 MG TAB PO PRN (00:32)
[2022-05-25] MEDS ORDERED: Acetaminophen 650 MG Suppository PR PRN (00:32)
[2022-05-25] MEDS ORDERED: Amlodipine 5 MG TAB ONE (01:57)
[2022-05-25 06:45] LABS: Troponin I Less than 0.010 ng/mL (< 0.028)
[2022-05-25 06:50] LABS: #Eosinphils 0.2 thou/uL (0.0-0.7); #Lymphocytes 2.4 thou/uL (1.20-3.40); #Monocytes 0.5 thou/uL (0.11-0.59); %Basophils 0.3 % (0.0-1.0); %Eosinophils 3.2 % (0.0-10.0); %Lymphocytes 46.7 % (21.0-51.0); %Monocytes 10.5 % (0.0-10.0); %Neutrophils 39.4 % (42.0-75.0); Hemoglobin 11.3 g/dL (14.0-18.0); Mean Corpuscular HGB CONC 30.7 g/dL (32.0-36.0); Mean Corpuscular Hemoglobin 25.5 pg (27.0-31.0); Mean Corpuscular Volume 83.1 fL (78.0-98.0); Mean Platelet Volume 7.6 fL (7.4-10.4); Platelet Count 258 thou/uL (130-400); RBC Distribution Width 15.6 % (11.5-14.5); Red Blood Cell (RBC) Count 4.44 mill/uL (4.70-6.10); White Blood Cell (WBC) Count 5.2 thou/uL (4.8-10.8)
[2022-05-25 06:51] LABS: Anion Gap 16 mmol/L (10-20); BUN (Urea Nitrogen) 21 mg/dL (8.4-25.7); Calc. Creatinine Clearance 0 mL/min (70-130); Calcium 8.8 mg/dL (7.8-10.44); Carbon Dioxide 21 mmol/L (23-31); Chloride 103 mmol/L (98-107); Estimated GFR 20; Glucose 83 mg/dL (80-115); Potassium 3.8 mmol/L (3.5-5.1); Sodium 136 mmol/L (136-145)
[2022-05-25] MEDS ORDERED: Aspirin Chewable 81 MG TAB ONE (10:56)
[2022-05-25] MEDS: Aspirin Chewable 81 MG TAB PO SCH (11:03)
[2022-05-25] MEDS ORDERED: Ondansetron PF 4 MG/2 ML Vial ONE (14:59)
[2022-05-25 17:25] VITALS: BMI 26.1
[2022-05-25] MEDS: Sodium Chloride 0.9% 1,000 ML IV SCH ×2 (19:28→19:29)
[2022-05-25] MEDS ORDERED: Tamsulosin HCl 0.4 MG CAP PO SCH (21:00)
[2022-05-26] MEDS: Sodium Chloride 0.9% 1,000 ML IV SCH ×2 (03:05→11:52)
[2022-05-26] MEDS ORDERED: Calcitriol 0.25 MCG CAP PO SCH (09:00)
[2022-05-26] MEDS ORDERED: Amlodipine 5 MG TAB PO SCH (09:00)
[2022-05-26 11:32] VITALS: BP 142/78; TEMP 97.6
[2022-05-26] MEDS: Aspirin Chewable 81 MG TAB PO SCH (11:49)
[2022-05-26] MEDS ORDERED: Regadenoson 0.4 MG/5 ML SYRINGE ONE (13:57)
== END 2022-05-26 14:30 | disposition home or self-care (01) ==
LOC: ERS 20:24 → ERHOLD 05-25 00:06 → 2SW 05-25 16:26
PROVIDERS: ADMIT Physician Assistant; ATTEND Physician Assistant
DX: R07.89 Other chest pain (principal); I12.9 Hypertensive chronic kidney disease with stage 1 through stage 4 chronic kidney disease, or unspecified chronic kidney disease; N18.9 Chronic kidney disease, unspecified; N17.9 Acute kidney failure, unspecified; D63.1 Anemia in chronic kidney disease; N25.81 Secondary hyperparathyroidism of renal origin; M54.9 Dorsalgia, unspecified; F12.11 Cannabis abuse, in remission; Z79.899 Other long term (current) drug therapy; Z20.822 Contact with and (suspected) exposure to COVID-19
CPT/HCPCS: 71045; 78452; 80048; 80053; 82550; 83690; 84484 ×2; 85025 ×2; 93005; 93017; 94760 ×2; 96361 ×2; A9500; G0378 ×3; U0003; U0005; 36415; J2405; J2785; J7050; Q0162

== ENCOUNTER 2022-08-10 18:26 | Emergency (ER) | payer MEDICARE ==
[2022-08-10 19:43] LABS: #Lymphocytes 1.5 thou/uL (1.20-3.40); #Monocytes 0.4 thou/uL (0.11-0.59); #Neutrophils 2.6 thou/uL (1.40-6.50); %Basophils 0.4 % (0.0-1.0); %Eosinophils 0.7 % (0.0-10.0); %Lymphocytes 32.8 % (21.0-51.0); %Monocytes 7.9 % (0.0-10.0); %Neutrophils 58.2 % (42.0-75.0); Hemoglobin 12.3 g/dL (14.0-18.0); Mean Corpuscular HGB CONC 31.2 g/dL (32.0-36.0); Mean Corpuscular Hemoglobin 25.7 pg (27.0-31.0); Mean Corpuscular Volume 82.5 fL (78.0-98.0); Mean Platelet Volume 7.6 fL (7.4-10.4); Platelet Count 239 thou/uL (130-400); RBC Distribution Width 15.3 % (11.5-14.5); Red Blood Cell (RBC) Count 4.78 mill/uL (4.70-6.10); White Blood Cell (WBC) Count 4.5 thou/uL (4.8-10.8)
[2022-08-10 20:01] LABS: ALT (SGPT) 7 U/L (8-55); AST (SGOT) 12 U/L (5-34); Albumin 4.3 g/dL (3.4-4.8); Alkaline Phosphatase 110 U/L (40-110); Anion Gap 12 mmol/L (10-20); BUN (Urea Nitrogen) 21 mg/dL (8.4-25.7); Bilirubin, Total 1.3 mg/dL (0.2-1.2); Calc. Creatinine Clearance 0 mL/min (70-130); Calcium 9.1 mg/dL (7.8-10.44); Carbon Dioxide 24 mmol/L (23-31); Chloride 103 mmol/L (98-107); Estimated GFR 23; Globulin 3.8 g/dL (2.4-3.5); Glucose 101 mg/dL (80-115); Potassium 4.4 mmol/L (3.5-5.1); Protein, Total 8.1 g/dL (5.8-8.1); Sodium 135 mmol/L (136-145)
[2022-08-10] MEDS ORDERED: Lidocaine Viscous Sol 2% 15 ml UD Cup ONE (22:55)
[2022-08-10] MEDS ORDERED: Mag-Al 1200 mg/1200 mg/30 ML UDCUP ONE (22:55)
== END 2022-08-11 01:07 | disposition home or self-care (01) ==
LOC: ERS 18:26
DX: K21.9 Gastro-esophageal reflux disease without esophagitis (principal)
CPT/HCPCS: 36415; 71045; 74176; 80053; 83690; 84484; 85025; 93005; 94760

== ENCOUNTER 2023-11-16 16:04 | Emergency (ER) | payer MEDICARE ==
[2023-11-16 17:13] LABS: #Monocytes 0.3 thou/uL (0.11-0.59); #Neutrophils 2.1 thou/uL (1.40-6.50); %Basophils 0.5 % (0.0-1.0); %Eosinophils 0.3 % (0.0-10.0); %Lymphocytes 38.4 % (21.0-51.0); %Monocytes 8.3 % (0.0-10.0); %Neutrophils 52.2 % (42.0-75.0); Hematocrit 30.6 % (42.0-52.0); Hemoglobin 9.9 g/dL (14.0-18.0); Mean Corpuscular HGB CONC 32.4 g/dL (32.0-36.0); Mean Corpuscular Hemoglobin 30.3 pg (27.0-31.0); Mean Corpuscular Volume 93.6 fl (78.0-98.0); Mean Platelet Volume 9.4 fL (7.4-10.4); Platelet Count 225 10x3/uL (130-400); RBC Distribution Width 12.7 % (11.5-14.5); Red Blood Cell (RBC) Count 3.27 mill/uL (4.70-6.10)
[2023-11-16 17:38] LABS: ALT (SGPT) 7 U/L (8-55); AST (SGOT) 16 U/L (5-34); Albumin 3.9 g/dL (3.4-4.8); Alkaline Phosphatase 69 U/L (40-110); Anion Gap 13 mmol/L (10-20); BUN (Urea Nitrogen) 38 mg/dL (8.4-25.7); Bilirubin, Total 0.3 mg/dL (0.2-1.2); Calc. Creatinine Clearance 0 mL/min (70-130); Calcium 8.2 mg/dL (7.8-10.44); Carbon Dioxide 18 mmol/L (23-31); Chloride 102 mmol/L (98-107); Estimated GFR 13; Globulin 4.3 g/dL (2.4-3.5); Glucose 98 mg/dL (80-115); Protein, Total 8.2 g/dL (5.8-8.1); Sodium 129 mmol/L (136-145)
[2023-11-16 17:39] LABS: Troponin I Less than 0.010 ng/mL (< 0.028)
[2023-11-16] MEDS ORDERED: Acetaminophen 500 MG TAB ONE (19:18)
[2023-11-16] MEDS ORDERED: Dicyclomine 20 MG/2 ML VIAL ONE (19:18)
== END 2023-11-16 19:26 | disposition home or self-care (01) ==
LOC: ERS 16:04
DX: R07.89 Other chest pain (principal); I10 Essential (primary) hypertension
CPT/HCPCS: 36415; 71045; 80053; 83880; 84484; 85025; 93005; 96372

== ENCOUNTER 2024-08-03 13:10 | Inpatient (IN) | payer MEDICARE ==
[2024-08-03] MEDS ORDERED: Ondansetron PF 4 MG/2 ML Vial ONE (13:43)
[2024-08-03] MEDS ORDERED: Famotidine/PF 20 mg/2ml Vial ONE (13:44)
[2024-08-03] MEDS ORDERED: Pantoprazole 40 MG VIAL ONE (13:44)
[2024-08-03 14:08] LABS: #Basophils Less than 0.03 10x3/uL (0.0-0.2); #Eosinphils Less than 0.03 10x3/uL (0.0-0.7); %Basophils 0.2 % (0.0-1.0); %Lymphocytes 16.6 % (21.0-51.0); %Monocytes 2.5 % (0.0-10.0); %Neutrophils 80.5 % (42.0-75.0); Hematocrit 21.8 % (42.0-52.0); Hemoglobin 7.1 g/dL (14.0-18.0); Mean Corpuscular HGB CONC 32.6 g/dL (32.0-36.0); Mean Corpuscular Hemoglobin 27.6 pg (27.0-31.0); Mean Corpuscular Volume 84.8 fL (78.0-98.0); Mean Platelet Volume 8.3 fL (7.4-10.4); Platelet Count 234 10x3/uL (130-400); RBC Distribution Width 15.9 % (11.5-14.5); Red Blood Cell (RBC) Count 2.57 mill/uL (4.70-6.10)
[2024-08-03 14:18] LABS: Bilirubin Negative (Negative); Blood, Urine 2+ (Negative); CAUTI Indications for Culture Dysuria,urgency,freq; Clarity Extra Turbid (Clear); Glucose, Urine (Dipstick) Normal (Negative); Ketone, Urine Negative (Negative); Leukocyte 500 Leu/uL (Negative); Nitrite Negative (Negative); Protein, Urine (Dipstick) 70 mg/dL (Neg-Trace); RBC/HPF 21-50 HPF (0-3); Specific Gravity, Urine 1.008 (1.002-1.036); Squamous Epithelial None Seen HPF (0-3); Urobilinogen Normal mg/dL (Less than 2); WBC/HPF Greater than 50 HPF (0-3); pH, Urine 6.5 (5.0-9.0)
[2024-08-03 14:20] LABS: Bacteria/HPF 1+ HPF (None Seen); Urine Culture Reflex Yes Yes
[2024-08-03 14:28] LABS: ALT (SGPT) 7 U/L (8-55); AST (SGOT) 12 U/L (5-34); Albumin 3.5 g/dL (3.4-4.8); Alkaline Phosphatase 59 U/L (40-110); Anion Gap 22 mmol/L (10-20); BUN (Urea Nitrogen) 116 mg/dL (8.4-25.7); Bilirubin, Total 0.7 mg/dL (0.2-1.2); Calc. Creatinine Clearance 0 mL/min (70-130); Calcium 9.5 mg/dL (7.8-10.44); Carbon Dioxide 16 mmol/L (23-31); Chloride 103 mmol/L (98-107); Estimated GFR 3; Globulin 5.6 g/dL (2.4-3.5); Glucose 129 mg/dL (80-115); Lipase 87 U/L (8-78); Magnesium 2.4 mg/dL (1.6-2.6); Protein, Total 9.1 g/dL (5.8-8.1); Sodium 136 mmol/L (136-145)
[2024-08-03] MEDS ORDERED: cefTRIAXone (ROCEPHIN) 2 GM VIAL ONE (14:31)
[2024-08-03] MEDS ORDERED: Sodium Chloride 0.9% 100 ML ONE (14:32)
[2024-08-03 14:36] LABS: Actual Bicarbonate (HCO3v) 15.3 mEq/L (22-28); Base Excess -8.3 mEq/L (-2.0 to +3.0); Calcium, Ionized (venous) 1.01 mmol/L (1.16-1.32); Chloride (VBG) 101 mmol/L (98-106); Hematocrit-VBG 22 % (42.0-52.0); Hemoglobin (Hb) 7.5 g/dL (12.6-17.4); Potassium (VBG) 4.61 mmol/L (3.70-5.30); Sodium 134 mmol/L (133-146); pH (venous) 7.412 (7.32-7.43)
[2024-08-03] MEDS ORDERED: fentaNYL 50 mcg/mL 1 mL Vial ONE (15:07)
[2024-08-03] MEDS ORDERED: Acetaminophen 325 MG TAB PO PRN (15:28)
[2024-08-03] MEDS ORDERED: Calcium Carbonate 500 MG ChewTAB PO PRN (15:28)
[2024-08-03] MEDS ORDERED: Ondansetron PF 4 MG/2 ML Vial IVP PRN (15:28)
[2024-08-03] MEDS ORDERED: Senokot S 8.6-50 MG TAB PO PRN (15:28)
[2024-08-03 17:48] VITALS: BMI 19.6
[2024-08-03] MEDS: LevoFLOXacin 750 mg/D5W 750 MG in Premix 1 BAG IVPB SCH (18:00)
[2024-08-03] MEDS ORDERED: Pantoprazole DR 40 MG TAB PO SCH (21:00)
[2024-08-03] MEDS: Tamsulosin HCl 0.4 MG CAP PO SCH (21:01)
[2024-08-03] MEDS: Amlodipine 5 MG TAB PO SCH (21:01)
[2024-08-03 21:47] LABS: Anion Gap 17 mmol/L (10-20); BUN (Urea Nitrogen) 112 mg/dL (8.4-25.7); Calc. Creatinine Clearance 6 mL/min (70-130); Calcium 8.5 mg/dL (7.8-10.44); Carbon Dioxide 17 mmol/L (23-31); Chloride 105 mmol/L (98-107); Estimated GFR 4; Glucose 119 mg/dL (80-115); Potassium 4.8 mmol/L (3.5-5.1); Sodium 134 mmol/L (136-145)
[2024-08-03] MEDS: Sodium Bicarbonate 150 MEQ in Sterile Water 1,000 ML IV SCH (22:27)
[2024-08-04 05:35] LABS: #Basophils Less than 0.03 10x3/uL (0.0-0.2); %Basophils 0.2 % (0.0-1.0); %Lymphocytes 27.8 % (21.0-51.0); %Monocytes 6.9 % (0.0-10.0); %Neutrophils 63.7 % (42.0-75.0); Hematocrit 20.3 % (42.0-52.0); Hemoglobin 6.5 g/dL (14.0-18.0); Mean Corpuscular Hemoglobin 27.8 pg (27.0-31.0); Mean Corpuscular Volume 86.8 fL (78.0-98.0); Mean Platelet Volume 9.1 fL (7.4-10.4); Platelet Count 213 10x3/uL (130-400); RBC Distribution Width 16.1 % (11.5-14.5); Red Blood Cell (RBC) Count 2.34 mill/uL (4.70-6.10)
[2024-08-04 05:40] LABS: ALT (SGPT) Less than 5 U/L (8-55); AST (SGOT) 8 U/L (5-34); Albumin 2.8 g/dL (3.4-4.8); Alkaline Phosphatase 50 U/L (40-110); Anion Gap 18 mmol/L (10-20); BUN (Urea Nitrogen) 109 mg/dL (8.4-25.7); Bilirubin, Total 0.4 mg/dL (0.2-1.2); Calc. Creatinine Clearance 6 mL/min (70-130); Calcium 8.6 mg/dL (7.8-10.44); Carbon Dioxide 18 mmol/L (23-31); Chloride 103 mmol/L (98-107); Estimated GFR 4; Globulin 4.6 g/dL (2.4-3.5); Glucose 96 mg/dL (80-115); Iron 34 ug/dL (65-175); Iron Binding Capacity, Total 261 mcg/dL (261-462); Magnesium 2.2 mg/dL (1.6-2.6); Phosphorus 5.3 mg/dL (2.3-4.7); Potassium 4.8 mmol/L (3.5-5.1); Protein, Total 7.4 g/dL (5.8-8.1); Sodium 134 mmol/L (136-145)
[2024-08-04] MEDS: Sodium Ferric Gluconate 250 MG in Sodium Chloride 0.9% 250 ML 250 ML IVPB SCH (09:50)
[2024-08-04] MEDS: Amlodipine 10 MG TAB PO SCH (09:50)
[2024-08-04] MEDS: Finasteride 5 MG TAB PO SCH (09:51)
[2024-08-04] MEDS: Rosuvastatin 10 MG TAB PO SCH (09:51)
[2024-08-04] MEDS: Pantoprazole 40 MG VIAL IVP SCH (09:51)
[2024-08-04] MEDS: Sodium Bicarbonate 150 MEQ in Sterile Water 1,000 ML IV SCH (12:49)
[2024-08-05 05:44] LABS: #Basophils Less than 0.03 10x3/uL (0.0-0.2); %Basophils 0.2 % (0.0-1.0); %Eosinophils 1.7 % (0.0-10.0); %Lymphocytes 26.9 % (21.0-51.0); %Neutrophils 64.8 % (42.0-75.0); Hematocrit 21.9 % (42.0-52.0); Hemoglobin 7.2 g/dL (14.0-18.0); Mean Corpuscular HGB CONC 32.9 g/dL (32.0-36.0); Mean Corpuscular Hemoglobin 27.9 pg (27.0-31.0); Mean Corpuscular Volume 84.9 fL (78.0-98.0); Mean Platelet Volume 8.4 fL (7.4-10.4); Platelet Count 185 10x3/uL (130-400); RBC Distribution Width 15.5 % (11.5-14.5); Red Blood Cell (RBC) Count 2.58 mill/uL (4.70-6.10)
[2024-08-05 05:56] LABS: Albumin 2.8 g/dL (3.4-4.8); Anion Gap 15 mmol/L (10-20); BUN (Urea Nitrogen) 95 mg/dL (8.4-25.7); BUN/Creatinine Ratio 8.76; Calc. Creatinine Clearance 6 mL/min (70-130); Calcium 8.2 mg/dL (7.8-10.44); Carbon Dioxide 27 mmol/L (23-31); Chloride 96 mmol/L (98-107); Estimated GFR 5; Glucose 79 mg/dL (80-115); Phosphorus 4.1 mg/dL (2.3-4.7); Potassium 4.2 mmol/L (3.5-5.1); Sodium 134 mmol/L (136-145)
[2024-08-05] MEDS: Sodium Bicarbonate 150 MEQ in Sterile Water 1,000 ML FS SCH (08:36)
[2024-08-05] MEDS: Ferrous Sulfate 325 MG TAB PO SCH (08:39)
[2024-08-05] MEDS: Sodium Chloride 0.9% 1,000 ML IV SCH (08:42)
[2024-08-05 14:29] VITALS: BMI 19.6
[2024-08-05] MEDS ORDERED: LevoFLOXacin 500 mg/D5W 500 MG in Premix 1 BAG IVPB SCH (18:00)
[2024-08-05] MEDS: LevoFLOXacin 500 mg/D5W 500 MG in Premix 1 BAG IVPB SCH ×2 (18:33→18:36)
[2024-08-06 07:20] LABS: #Basophils Less than 0.03 10x3/uL (0.0-0.2); %Basophils 0.5 % (0.0-1.0); %Eosinophils 1.7 % (0.0-10.0); %Lymphocytes 31.8 % (21.0-51.0); %Monocytes 6.9 % (0.0-10.0); %Neutrophils 58.9 % (42.0-75.0); Hematocrit 21.9 % (42.0-52.0); Hemoglobin 6.9 g/dL (14.0-18.0); Mean Corpuscular HGB CONC 31.5 g/dL (32.0-36.0); Mean Corpuscular Hemoglobin 27.5 pg (27.0-31.0); Mean Corpuscular Volume 87.3 fL (78.0-98.0); Mean Platelet Volume 8.3 fL (7.4-10.4); Platelet Count 153 10x3/uL (130-400); RBC Distribution Width 15.9 % (11.5-14.5); Red Blood Cell (RBC) Count 2.51 mill/uL (4.70-6.10)
[2024-08-06 07:58] LABS: Anion Gap 16 mmol/L (10-20); BUN (Urea Nitrogen) 84 mg/dL (8.4-25.7); Calc. Creatinine Clearance 7 mL/min (70-130); Calcium 8.2 mg/dL (7.8-10.44); Carbon Dioxide 22 mmol/L (23-31); Chloride 101 mmol/L (98-107); Estimated GFR 5; Glucose 85 mg/dL (80-115); Phosphorus 4.1 mg/dL (2.3-4.7); Potassium 4.5 mmol/L (3.5-5.1); Sodium 134 mmol/L (136-145)
[2024-08-07 05:53] LABS: #Basophils Less than 0.03 10x3/uL (0.0-0.2); %Basophils 0.4 % (0.0-1.0); %Eosinophils 3.3 % (0.0-10.0); %Lymphocytes 31.1 % (21.0-51.0); %Monocytes 7.6 % (0.0-10.0); %Neutrophils 57.4 % (42.0-75.0); Hematocrit 24.6 % (42.0-52.0); Hemoglobin 8.1 g/dL (14.0-18.0); Mean Corpuscular HGB CONC 32.9 g/dL (32.0-36.0); Mean Corpuscular Hemoglobin 28.9 pg (27.0-31.0); Mean Corpuscular Volume 87.9 fL (78.0-98.0); Mean Platelet Volume 8.5 fL (7.4-10.4); Platelet Count 150 10x3/uL (130-400); RBC Distribution Width 15.1 % (11.5-14.5)
[2024-08-07 06:09] LABS: Anion Gap 15 mmol/L (10-20); BUN (Urea Nitrogen) 79 mg/dL (8.4-25.7); Calc. Creatinine Clearance 7 mL/min (70-130); Calcium 8.2 mg/dL (7.8-10.44); Carbon Dioxide 19 mmol/L (23-31); Chloride 106 mmol/L (98-107); Estimated GFR 6; Glucose 83 mg/dL (80-115); Potassium 4.5 mmol/L (3.5-5.1); Sodium 135 mmol/L (136-145)
[2024-08-07] MEDS: Calcitriol 0.25 MCG CAP PO SCH (09:05)
[2024-08-07] MEDS: Bicalutamide 50 MG TAB PO SCH (10:00)
[2024-08-08 05:12] LABS: #Basophils Less than 0.03 10x3/uL (0.0-0.2); %Basophils 0.4 % (0.0-1.0); %Eosinophils 3.6 % (0.0-10.0); %Lymphocytes 31.5 % (21.0-51.0); %Monocytes 6.4 % (0.0-10.0); %Neutrophils 57.7 % (42.0-75.0); Hematocrit 25.6 % (42.0-52.0); Hemoglobin 8.4 g/dL (14.0-18.0); Mean Corpuscular HGB CONC 32.8 g/dL (32.0-36.0); Mean Corpuscular Hemoglobin 28.8 pg (27.0-31.0); Mean Corpuscular Volume 87.7 fL (78.0-98.0); Platelet Count 145 10x3/uL (130-400); RBC Distribution Width 15.5 % (11.5-14.5); Red Blood Cell (RBC) Count 2.92 mill/uL (4.70-6.10)
[2024-08-08 05:18] LABS: Carbon Dioxide 18 mmol/L (23-31); Chloride 106 mmol/L (98-107); Potassium 4.9 mmol/L (3.5-5.1); Sodium 133 mmol/L (136-145)
[2024-08-08 05:19] LABS: Anion Gap 14 mmol/L (10-20); BUN (Urea Nitrogen) 75 mg/dL (8.4-25.7); Calc. Creatinine Clearance 8 mL/min (70-130); Calcium 8.4 mg/dL (7.8-10.44); Estimated GFR 6; Glucose 84 mg/dL (80-115)
[2024-08-08] MEDS: Bicalutamide 50 MG TAB PO SCH (07:54)
[2024-08-08] MEDS ORDERED: hydrALAZINE 20 MG/ML VIAL SLOW IVP PRN (15:17)
[2024-08-08] MEDS: hydrALAZINE 25 MG TAB PO SCH (20:11)
[2024-08-09 03:27] VITALS: TEMP 97.6
[2024-08-09 05:49] LABS: #Basophils 0.03 10x3/uL (0.0-0.2); %Basophils 0.7 % (0.0-1.0); %Eosinophils 4.7 % (0.0-10.0); %Lymphocytes 28.8 % (21.0-51.0); %Monocytes 7.7 % (0.0-10.0); %Neutrophils 57.9 % (42.0-75.0); Hematocrit 25.9 % (42.0-52.0); Hemoglobin 8.5 g/dL (14.0-18.0); Mean Corpuscular HGB CONC 32.8 g/dL (32.0-36.0); Mean Corpuscular Volume 88.4 fL (78.0-98.0); Mean Platelet Volume 8.2 fL (7.4-10.4); Platelet Count 170 10x3/uL (130-400); RBC Distribution Width 15.5 % (11.5-14.5); Red Blood Cell (RBC) Count 2.93 mill/uL (4.70-6.10)
[2024-08-09 06:21] LABS: Anion Gap 11 mmol/L (10-20); BUN (Urea Nitrogen) 70 mg/dL (8.4-25.7); Calc. Creatinine Clearance 8 mL/min (70-130); Calcium 8.3 mg/dL (7.8-10.44); Carbon Dioxide 17 mmol/L (23-31); Chloride 108 mmol/L (98-107); Estimated GFR 6; Glucose 73 mg/dL (80-115); Potassium 4.4 mmol/L (3.5-5.1); Sodium 132 mmol/L (136-145)
[2024-08-09 15:40] VITALS: BP 134/85
[2024-08-13] MEDS ORDERED: Ergocalciferol 1.25 MG(50,000 UNITS) CAP PO SCH (09:00)
== END 2024-08-09 17:47 | disposition home or self-care (01) | DRG 690 ==
LOC: ERS 13:10 → SUATTDRO 13:10 → 2NO 16:19 → MSONC 08-05 17:40
PROVIDERS: ADMIT Internal Medicine; ATTEND Family Medicine
PROC: 0T9B70Z Drainage of Bladder with Drainage Device, Via Natural or Artificial Opening (ICD-10-PCS; 2024-08-03)
PROC: 30233N1 Transfusion of Nonautologous Red Blood Cells into Peripheral Vein, Percutaneous Approach (ICD-10-PCS; principal; 2024-08-04)
DX: N13.6 Pyonephrosis (principal); E87.20 Acidosis, unspecified; E87.1 Hypo-osmolality and hyponatremia; I12.9 Hypertensive chronic kidney disease with stage 1 through stage 4 chronic kidney disease, or unspecified chronic kidney disease; N17.9 Acute kidney failure, unspecified; N18.9 Chronic kidney disease, unspecified; N40.0 Benign prostatic hyperplasia without lower urinary tract symptoms; C61 Malignant neoplasm of prostate; D63.1 Anemia in chronic kidney disease; E86.9 Volume depletion, unspecified; D50.9 Iron deficiency anemia, unspecified; E83.39 Other disorders of phosphorus metabolism; N25.81 Secondary hyperparathyroidism of renal origin; Z98.890 Other specified postprocedural states
CPT/HCPCS: 36415; 36430; 51702; 74176; 78306; 80048; 80053; 80069; 81001; 82306; 82550; 82728; 82805; 83540; 83550; 83690; 83735; 83970; 84100; 84153; 85025; 86850; 86900; 86901; 87086; 93005; 96361; 96365; 96375; A4217; A9503; J0696; J1956; J2405; J2470; J2916; J3010; J3490; J7030; J7050; P9016

== ENCOUNTER 2024-08-13 18:48 | Emergency (ER) | payer MEDICARE | END 2024-08-13 21:18 | disposition home or self-care (01) | LOC: ERS 18:48 | DX: I80.12 Phlebitis and thrombophlebitis of left femoral vein (principal); I10 Essential (primary) hypertension; Z85.46 Personal history of malignant neoplasm of prostate ==

== ENCOUNTER 2025-06-21 02:02 | Emergency (ER) | payer MEDICARE ==
[2025-06-21 05:19] LABS: #Basophils 0.04 10x3/uL (0.0-0.2); #Eosinophils 0.19 10x3/uL (0.0-0.7); #Monocytes 0.36 10x3/uL (0.11-0.59); #Neutrophils 2.46 10x3/uL (1.40-6.50); %Basophils 0.9 % (0.0-1.0); %Eosinophils 4.2 % (0.0-10.0); %Lymphocytes 32.0 % (21.0-51.0); %Monocytes 8.0 % (0.0-10.0); %Neutrophils 54.7 % (42.0-75.0); Hematocrit 34.4 % (42.0-52.0); Hemoglobin 11.0 g/dL (14.0-18.0); Mean Corpuscular Hemoglobin 29.9 pg (27.0-31.0); Mean Corpuscular Volume 93.5 fL (78.0-98.0); Platelet Count 198 10x3/uL (130-400); Red Blood Cell (RBC) Count 3.68 mill/uL (4.70-6.10); White Blood Cell (WBC) Count 4.50 10x3/uL (4.8-10.8)
[2025-06-21 05:39] LABS: ALT (SGPT) 7 U/L (Less than 45); AST (SGOT) 23 U/L (11-34); Albumin 3.7 g/dL (3.1-4.5); Alkaline Phosphatase 245 U/L (40-110); Anion Gap 12 mmol/L (10-20); BUN (Urea Nitrogen) 40 mg/dL (8.4-25.7); Bilirubin, Total 0.3 mg/dL (0.3-1.2); Calc. Creatinine Clearance 0 mL/min (70-130); Calcium 7.7 mg/dL (7.8-10.44); Carbon Dioxide 21 mmol/L (23-31); Chloride 105 mmol/L (98-107); Globulin 3.6 g/dL (2.4-3.5); Glucose 99 mg/dL (80-115); Potassium 3.9 mmol/L (3.5-5.1); Sodium 134 mmol/L (136-145)
== END 2025-06-21 06:42 ==
LOC: ERS 02:02
DX: R42 Dizziness and giddiness (principal)
CPT/HCPCS: 36415; 71045; 80053; 84484; 85025; 93005

== ENCOUNTER 2025-09-20 02:01 | Emergency (ER) | payer MEDICARE ==
[2025-09-20 05:55] LABS: #Basophils Less than 0.03 10x3/uL (0.0-0.2); #Eosinophils 0.46 10x3/uL (0.0-0.7); #Monocytes 0.42 10x3/uL (0.11-0.59); #Neutrophils 2.65 10x3/uL (1.40-6.50); %Basophils 0.4 % (0.0-1.0); %Eosinophils 9.5 % (0.0-10.0); %Lymphocytes 26.3 % (21.0-51.0); %Monocytes 8.7 % (0.0-10.0); %Neutrophils 54.9 % (42.0-75.0); Hematocrit 34.6 % (42.0-52.0); Hemoglobin 11.7 g/dL (14.0-18.0); Mean Corpuscular Hemoglobin 29.8 pg (27.0-31.0); Mean Corpuscular Volume 88.0 fL (78.0-98.0); Platelet Count 195 10x3/uL (130-400); Red Blood Cell (RBC) Count 3.93 mill/uL (4.70-6.10); White Blood Cell (WBC) Count 4.83 10x3/uL (4.8-10.8)
[2025-09-20 06:37] LABS: ALT (SGPT) Less than 7 U/L (Less than 45); AST (SGOT) 15 U/L (11-34); Albumin 3.8 g/dL (3.1-4.5); Alkaline Phosphatase 246 U/L (40-110); Anion Gap 17 mmol/L (10-20); BUN (Urea Nitrogen) 60 mg/dL (8.4-25.7); Bilirubin, Total 0.5 mg/dL (0.3-1.2); Calc. Creatinine Clearance 0 mL/min (70-130); Calcium 8.6 mg/dL (7.8-10.44); Carbon Dioxide 17 mmol/L (23-31); Chloride 106 mmol/L (98-107); Globulin 3.6 g/dL (2.4-3.5); Glucose 100 mg/dL (80-115); Potassium 4.6 mmol/L (3.5-5.1); Sodium 135 mmol/L (136-145)
== END 2025-09-20 08:49 | disposition home or self-care (01) ==
LOC: ERS 02:01
DX: S29.012A Strain of muscle and tendon of back wall of thorax, initial encounter (principal); I12.9 Hypertensive chronic kidney disease with stage 1 through stage 4 chronic kidney disease, or unspecified chronic kidney disease; N18.9 Chronic kidney disease, unspecified; X58.XXXA Exposure to other specified factors, initial encounter
CPT/HCPCS: 71045; 80053; 84484; 85025; 93005

== ENCOUNTER 2025-10-16 14:45 | Emergency (ER) | payer MEDICARE ==
[2025-10-16 17:37] LABS: #Basophils Less than 0.03 10x3/uL (0.0-0.2); #Eosinophils 0.12 10x3/uL (0.0-0.7); #Monocytes 0.42 10x3/uL (0.11-0.59); #Neutrophils 2.64 10x3/uL (1.40-6.50); %Basophils 0.4 % (0.0-1.0); %Eosinophils 2.7 % (0.0-10.0); %Lymphocytes 28.2 % (21.0-51.0); %Monocytes 9.4 % (0.0-10.0); %Neutrophils 59.1 % (42.0-75.0); Hematocrit 32.1 % (42.0-52.0); Hemoglobin 10.5 g/dL (14.0-18.0); Mean Corpuscular Hemoglobin 29.7 pg (27.0-31.0); Mean Corpuscular Volume 90.7 fL (78.0-98.0); Platelet Count 219 10x3/uL (130-400); Red Blood Cell (RBC) Count 3.54 mill/uL (4.70-6.10); White Blood Cell (WBC) Count 4.47 10x3/uL (4.8-10.8)
[2025-10-16] MEDS ORDERED: HYDROcodone/Acetaminophen 10/325 mg Tablet ONE (17:46)
[2025-10-16 17:54] LABS: ALT (SGPT) 8 U/L (Less than 45); AST (SGOT) 28 U/L (11-34); Albumin 3.6 g/dL (3.1-4.5); Alkaline Phosphatase 287 U/L (40-110); Anion Gap 11 mmol/L (10-20); BUN (Urea Nitrogen) 55 mg/dL (8.4-25.7); Bilirubin, Total 0.5 mg/dL (0.3-1.2); Calc. Creatinine Clearance 0 mL/min (70-130); Calcium 8.2 mg/dL (7.8-10.44); Carbon Dioxide 16 mmol/L (23-31); Chloride 107 mmol/L (98-107); Globulin 3.6 g/dL (2.4-3.5); Glucose 107 mg/dL (80-115); Lipase 33 U/L (8-78); Potassium 4.5 mmol/L (3.5-5.1); Sodium 129 mmol/L (136-145)
[2025-10-16 18:13] LABS: Bacteria/HPF None Seen HPF (None Seen); CAUTI Indications for Culture Dysuria,urgency,freq; Glucose, Urine (Dipstick) Normal (Negative); Leukocyte 500 Leu/uL (Negative); Protein, Urine (Dipstick) 100 mg/dL (Neg-Trace); Specific Gravity, Urine 1.012 (1.002-1.036); WBC/HPF 21-50 HPF (0-3)
[2025-10-16 18:15] LABS: Urine Culture Reflex Yes Yes
[2025-10-16] MEDS ORDERED: Sulfameth/Trimethoprim DS 800-160mg TAB ONE (19:18)
== END 2025-10-16 19:30 | disposition home or self-care (01) ==
LOC: ERS 14:45
DX: M54.9 Dorsalgia, unspecified (principal); R10.A1 Flank pain, right side; R30.0 Dysuria; N39.0 Urinary tract infection, site not specified; N18.9 Chronic kidney disease, unspecified
CPT/HCPCS: 36415; 71250; 80053; 81001; 83690; 85025; 87086; 93005

== ENCOUNTER 2025-10-23 13:51 | Emergency (ER) | payer MEDICARE ==
[2025-10-23] MEDS ORDERED: Ondansetron PF 4 MG/2 ML Vial ONE (16:15)
[2025-10-23 17:00] LABS: #Basophils 0.04 10x3/uL (0.0-0.2); #Eosinophils 0.16 10x3/uL (0.0-0.7); #Monocytes 0.59 10x3/uL (0.11-0.59); #Neutrophils 2.57 10x3/uL (1.40-6.50); %Basophils 0.8 % (0.0-1.0); %Eosinophils 3.3 % (0.0-10.0); %Lymphocytes 29.9 % (21.0-51.0); %Monocytes 12.3 % (0.0-10.0); %Neutrophils 53.5 % (42.0-75.0); Hematocrit 31.7 % (42.0-52.0); Hemoglobin 10.0 g/dL (14.0-18.0); Mean Corpuscular Hemoglobin 28.5 pg (27.0-31.0); Mean Corpuscular Volume 90.3 fL (78.0-98.0); Platelet Count 227 10x3/uL (130-400); Red Blood Cell (RBC) Count 3.51 mill/uL (4.70-6.10); White Blood Cell (WBC) Count 4.81 10x3/uL (4.8-10.8)
[2025-10-23 17:22] LABS: ALT (SGPT) 9 U/L (Less than 45); AST (SGOT) 27 U/L (11-34); Albumin 3.8 g/dL (3.1-4.5); Alkaline Phosphatase 292 U/L (40-110); Anion Gap 16 mmol/L (10-20); BUN (Urea Nitrogen) 42 mg/dL (8.4-25.7); Bilirubin, Total 0.2 mg/dL (0.3-1.2); Calc. Creatinine Clearance 0 mL/min (70-130); Calcium 8.4 mg/dL (7.8-10.44); Carbon Dioxide 16 mmol/L (23-31); Chloride 106 mmol/L (98-107); Globulin 4.0 g/dL (2.4-3.5); Glucose 80 mg/dL (80-115); Lipase 75 U/L (8-78); Potassium 5.1 mmol/L (3.5-5.1); Sodium 133 mmol/L (136-145)
== END 2025-10-23 19:52 | disposition home or self-care (01) ==
LOC: ERS 13:51
DX: N13.30 Unspecified hydronephrosis (principal); I12.9 Hypertensive chronic kidney disease with stage 1 through stage 4 chronic kidney disease, or unspecified chronic kidney disease; N18.9 Chronic kidney disease, unspecified; C79.9 Secondary malignant neoplasm of unspecified site; Z79.899 Other long term (current) drug therapy
CPT/HCPCS: 51702; 74176; 76705; 80053; 83690; 84484; 85025; 93005; 96374; 96375; 99284; J2270; J2405